=== PATIENT | female | born 1960 | race Caucasian/White ===

== ENCOUNTER 2020-01-26 05:12 | Inpatient (IN) | payer OTHER, SELFPAY ==
[2020-01-26] VITALS (9 sets, daily range): BP systolic 120–140; BP diastolic 41–66; PULSE 72–85; RESP 16–20; TEMP 36.4–37.1; O2SAT 96–100; BMI 39.1
--- NOTE | ~2020-01-26 | XR_ITS ---
EXAMINATION: XR chest 1V portable EXAM DATE: 01/27/2020 06:06 INDICATION: COVID-19 pneumonia. TECHNIQUE: Portable AP frontal chest x-ray was obtained. Comparison is made to prior examination from 05/21/2017. FINDINGS: There is small amount of ill-defined bilateral patchy airspace disease consistent with hist ory provided above. No pneumothorax or pleural effusion. Cardiomediastinal silhouette is normal. Ther e are no osseous abnormalities identified. IMPRESSION: Patchy ill-defined bilateral acute airspace disease. Reviewed, dictated and finalized at location A.
--- NOTE | ~2020-01-26 | CT_ITS ---
EXAMINATION: CT cervical spine wo con DATE: 01/26/2020 13:24 INDICATION: Left hemiparesis. TECHNIQUE: Computed tomography (CT) of the cervical spine was performed without intravenous contrast. Automated exposure control and iterative reconstruction technique were employed. The dose-length pro duct was 495.50 mGy-cm. COMPARISON: None FINDINGS: There is 4 degrees levocurvature of cervical spine. There is mild kyphosis of cervical spin e. Vertebral body heights are normal. There is severely decreased disc height at C5-C6 and C6-C7. The following disc levels are specifically discussed: C2-C3: There is no uncovertebral joint osteoarthritis. There is moderate right and severe left facet joint osteoarthritis. There is no neural foraminal stenosis. There is no central canal stenosis. C3-C4: There is mild bilateral uncovertebral joint osteoarthritis. There is severe bilateral facet sree int osteoarthritis. There is mild right neural foraminal stenosis. There is no central canal stenosis . C4-C5: There is no uncovertebral joint osteoarthritis. There is severe bilateral facet joint osteoart hritis. There is mild bilateral neural foraminal stenosis. There is mild central canal stenosis. C5-C6: There is severe bilateral uncovertebral joint osteoarthritis. There is severe right and mild l eft facet joint osteoarthritis. There is mild bilateral neural foraminal stenosis. There is mild cent ral canal stenosis. C6-C7: There is severe bilateral uncovertebral joint osteoarthritis. There is severe right and modera te left facet joint osteoarthritis. There is moderate right and mild left neural foraminal stenosis. There is mild central canal stenosis. C7-T1: There is no uncovertebral joint osteoarthritis. There is severe bilateral facet joint osteoart hritis. There is mild bilateral neural foraminal stenosis. There is no central canal stenosis. IMPRESSION: 1. No fracture. 2. Severe cervical spondylosis. Reviewed, dictated and finalized at location A.
--- NOTE | ~2020-01-26 | CT_ITS ---
EXAMINATION: CT brain wo con DATE: 01/26/2020 13:24 INDICATION: Left hemiparesis. TECHNIQUE: Computed tomography (CT) of the head was performed without intravenous contrast. The mA wa s adjusted according to patient size. Iterative reconstruction technique was employed. The dose-lengt h product was 605.33 mGy-cm. COMPARISON: None FINDINGS: There is no intracranial hemorrhage, acute infarction, or abnormal intracranial mass lesion . The ventricles are normal in size. The paranasal sinuses are clear. The orbits are normal. The mast oid air cells are normal. IMPRESSION: 1. Normal brain. Reviewed, dictated and finalized at location A. IMPRESSION: 1. Normal brain.
--- NOTE | 2020-01-26 05:36 | ADMGEN ---
This patient, Jessica Zepeda, was admitted to [facility] Surg Room 329-01. Patient/family oriented to hospital policies and general routines including ID bracelet, bed and alarms, visiting hours, pain management, procedures, bathroom and other care routines, personal items, smoking policy, room service/diet, and visiting hours. Valuables list has been completed. Information on how to activate the Rapid Response Team has been discussed. Patient/Family are encouraged to report perceived risks to care and to ask questions if they do not understand what they are told or what they should do.
[2020-01-26 06:31] LABS: Hemoglobin 12.6 g/dL (12.0-15.0); Mean Corpuscular HGB Conc 32.3 g/dl (32-36); Mean Corpuscular Hemoglobin 28.2 pg (26-34); Mean Corpuscular Volume 87.2 fl (80-100); Mean Platelet Volume 10.1 fl (7.4-10.4); Platelet Count Result 180 k/mm3 (150-375); Red Blood Count 4.47 M/mm3 (4.2-5.4); Red Cell Distribution Width 13.4 % (11.5-14.5); White Blood Count 3.7 K/mm3 (4.5-10.0)
[2020-01-26 06:56] LABS: Alanine Aminotransferase 19 U/L (4-35); Albumin Level 3.8 g/dL (3.5-5.1); Alkaline Phosphatase 107 U/L (38-126); Anion Gap 12.7 mmol/L (7-16); Aspartate Amino Transferase 23 U/L (14-36); Bilirubin,Total 0.7 mg/dL (0.2-1.3); Blood Urea Nitrogen 16 mg/dL (7-17); CRP 2.2 mg/dL (<1.0); Calcium 8.5 mg/dL (8.4-10.2); Carbon Dioxide 28 mmol/L (22-30); Chloride 101 mmol/L (98-107); Estimated Glomerular Filt Rate > 60; Glucose 118 mg/dL (65-105); Potassium 3.7 mmol/L (3.4-5.0); Sodium 138 mmol/L (137-145)
[2020-01-26 07:03] LABS: D Dimer 0.27 ug/mL (<0.48)
[2020-01-26 07:07] LABS: Lactate Dehydrogenase 377 U/L (313-618)
--- NOTE | 2020-01-26 11:23 | PM.IMHP ---
H&P: HPI History of Present Illness Chief complaint: COVID positive, Increased O2 requirements Narrative: Jessica Zepeda is a 59 year old female HTN, hx of breast CA and known +COVID here for SOB and hypoxia. Patient developed symptoms on January 17. She called her doctor the following day and was tested for COVID on January 19 that was positive. Over the past week, patient has been having fever up to 101. She has been feeling tight in the chest with cough. Cough is productive yellow sputum. She has been having a headache. She has disgusia and anosmia. Also having headache but no sore throat. She is having diarrhea but no melena or hematochezia. No nausea or vomiting. She had a decreased appetite. No numbness, tingling or weakness in her extremities. She did check a pulse ox which she has at home due to her asthma and it has been running about 87-91% on room air. She has also been diaphoretic at times. She became lightheaded yesterday falling hitting her left forehead. There was no loss of consciousness. She presented to outside hospital for evaluation. At the outside hospital, white count with 4500 but lab work otherwise was unremarkable. Lactic acid was 1.4. Chest x-ray showed ill-defined bibasilar hazy interstitial opacities. Blood pressure was low at 1 point but unclear if this is measurement error since other values were fine. No CT of the brain performed. Pulse ox was normal on 2 L. She was sent to our facility for further management. Patient is feeling better today. Review of Systems Review of Systems: All systems reviewed & are unremarkable except as noted in HPI and below [facility] Past Medical History Medical History (Updated 01/26/20 @ 12:22 by Renzo Ford MD) Anxiety Arthritis Asthma Breast cancer s/p right mastectomy and LN biopsy for a T1N0 invasive mucinous CA; no chemo but did XRT then Arimidex but stopped after a few days due to side effects Depression GERD (gastroesophageal reflux disease) Gilbert disease Hallux rigidus of left foot Hearing loss Hx of acute bronchitis Hx of recurrent pneumonia Mixed hyperlipidemia Peptic ulceration Pseudocholinesterase deficiency surgery for cleaning up rotator cuff - could not move for 3 days with rigidity PTSD (post-traumatic stress disorder) Surgical History Surgical History (Updated 01/26/20 @ 11:34 by Renzo Ford MD) H/O breast biopsy Right 09/13/18; Right 10/08/18; H/O colonoscopy 2011 H/O elbow surgery H/O foot surgery right; bone broken in 4 places H/O hernia repair H/O knee surgery arthroscopic - meniscus repair on right in 2011 H/O thumb surgery arthritis/bone removes right H/O: hysterectomy History of carpal tunnel release bilateral History of Bindu fundoplication History of tonsillectomy S/P breast lumpectomy Right 11/10/18 S/P rotator cuff repair x2 Social History Social History (Updated 01/26/20 @ 12:18 by Renzo Ford MD) Social History: Patient lives home alone. She is single. No children. She is a full code. She nominates her brother Aayush be the individual would make medical decisions for her if she is not able. She quit tobacco in 1998 after smoking 2 packs per week for about 10 years. When she feels well, she has known to drink 2-3 alcoholic drinks per month. no drug use. Smoking packs per day: 0.5 Smoking cigarettes per day: 10.0 Years smoked: 10 Smoking pack-years: 5.00 Smoking status: Former smoker Smoking end date: 07/02/97 Alcohol intake: current Drinks per week: 1 Substance use: never Gender identity (if verbalized by the patient): Female Spiritual care concerns: No Meds Home Medications and Allergies Home Medications Medication Instructions Recorded Confirmed Type atorvastatin 20 mg tablet 20 mg PO HS 07/17/19 01/26/20 History fluticasone propionate 50 2 spray NASAL DAILY PRN 07/17/19 01/26/20 History mcg/actuation nasal spray,suspension kaur
[2020-01-26] MEDS: PANTOPRAZOLE 40 MG TABLET PO (15:11)
[2020-01-26] MEDS: FLUTICASONE PROPIONATE 0.05% NA SPR 16 GM BTL (*BKC) 2 SPRAY NASAL (15:11)
[2020-01-26] MEDS: MONTELUKAST SODIUM 10 MG TABLET PO (15:12)
[2020-01-26] MEDS: ENOXAPARIN 40 MG/0.4 ML SYRINGE SUB-Q (15:12)
--- NOTE | 2020-01-26 16:08 | PC.NURSE ---
pt to ct at 1302 back at 1330 via wheelchair with 02
[2020-01-26] MEDS: ALBUTEROL SULFATE (*SP) AEROSOL 1 PUFF 6 PUFF INHALATION ×2 (17:01→17:09)
[2020-01-26] MEDS: VENLAFAXINE HCL XR 75 MG CAP.ER.24H 225 MG PO (17:45)
[2020-01-26] MEDS: ACETAMINOPHEN 325 MG TABLET 650 MG PO ×2 (17:47→22:01)
[2020-01-26] MEDS: FLUTICASONE/SALMETEROL 45-21 MCG INHALER 1 PUFF 2 PUFF INHALATION (20:20)
[2020-01-26] MEDS: ALBUTEROL SULFATE (*SP) INHALER 6 PUFF INHALATION (20:20)
[2020-01-26] MEDS: traZODone HCL 50 MG TABLET PO (21:57)
[2020-01-27] VITALS (11 sets, daily range): BP systolic 124–142; BP diastolic 58–80; PULSE 62–103; RESP 16–20; TEMP 36.6–37.2; O2SAT 93–99
[2020-01-27] MEDS: ONDANSETRON INJ 4 MG/2 ML VIAL IV PUSH (06:01)
[2020-01-27 06:59] LABS: CRP 2.8 mg/dL (<1.0); Lactate Dehydrogenase 376 U/L (313-618)
[2020-01-27] MEDS: MONTELUKAST SODIUM 10 MG TABLET PO (09:19)
[2020-01-27] MEDS: ENOXAPARIN 40 MG/0.4 ML SYRINGE SUB-Q ×2 (09:19→21:11)
[2020-01-27] MEDS: PANTOPRAZOLE 40 MG TABLET PO (09:19)
[2020-01-27] MEDS: FLUTICASONE/SALMETEROL 45-21 MCG INHALER 1 PUFF 2 PUFF INHALATION ×2 (09:51→19:58)
[2020-01-27] MEDS: ALBUTEROL SULFATE (*SP) INHALER 6 PUFF INHALATION ×4 (09:52→19:58)
[2020-01-27] MEDS: ACETAMINOPHEN 325 MG TABLET 650 MG PO (14:45)
--- NOTE | 2020-01-27 16:43 | PM.IMPN ---
Progress Note: A&P Assessment and Plan (1) COVID-19: Code(s): U07.1 - COVID-19 Status: Acute Assessment and Plan: Patient is on day 8-9 of symptoms. Ferritin, DD and LDH normal; CRP slightly elevated. Continue supplemental oxygen. Continue supportive care. Check chest x-ray infiltrates and no change Wean oxygen as tolerated. Continue albuterol MDI. with hypoxia at home and continued need of supplemental oxygen will start been this severe and dexamethasone (2) Hypoxia: Code(s): R09.02 - Hypoxemia Status: Acute Assessment and Plan: As above. Wean oxygen as tolerated. (3) Fall: Code(s): W19.XXXA - Unspecified fall, initial encounter Status: Acute Assessment and Plan: Patient had a fall without loss of consciousness. She did strike her head. Minor asymmetric weakness noted nurse in left upper extremity. Not on anticoagulation. Will try to obtain a CT of the brain and cervical spine if possible. Continue to monitor clinically. CT brain and c-spine showing no acute changes. (4) Asthma: Code(s): J45.909 - Unspecified asthma, uncomplicated Status: Acute Assessment and Plan: No appreciable wheezes noted. Resume Trelegy. (5) Essential (primary) hypertension: Code(s): I10 - Essential (primary) hypertension Status: Acute Assessment and Plan: Blood pressure low x1 value at the outside hospital but otherwise blood pressures been well controlled. Clonidine is on hold but will restart at 0.1 daily to avoid rebound. Will continue to monitor . Change to regular diet per patient wishes. (6) HX: breast cancer: Code(s): Z85.3 - Personal history of malignant neoplasm of breast Status: Acute Assessment and Plan: Status post lumpectomy with XRT but no chemotherapy. She could not tolerate Arimidex due to side effect of retinal hemorrhage. No history of diabetes. She is on Empagliflozin-metformin for weight loss. (7) Anxiety and depression: Code(s): F41.9 - Anxiety disorder, unspecified; F32.9 - Major depressive disorder, single episode, unspecified Status: Acute Assessment and Plan: Mood is stable. Continue Effexor and trazodone. Alprazolam available as needed for anxiety. Subjective Date/time seen: Date of visit 07/28/20 16:43 Interval history: date of visit 01/26. 59-year-old asthmatic with hypoxia at home and positive COVID testing presented to the emergency room. Admitted for evaluation treatment of the same. Still feels poorly today with some coughing and headache and dysguesia. Exam Narrative: Exam Narrative: AF 98.3 124/78 86 16 95% 2L Gen -Well-nourished, well-developed female in no acute respiratory distress. HEENT - Normocephalic. Atraumatic. no obvious injury to the left forehead. Pupils equal round reactive. Sclera clear and anicteric. Neck - Supple. . No dominant adenopathy,. Chest - Very minor faint inspiratory crackles bibasilar otherwise distant clear breath sounds. Normal respiratory rate CV - RRR S1/S2. no murmurs, gallops or rubs. Abd - Soft. Obese. Nontender. Positive bowel sounds. Ext - No pedal edema. 2+ DP pulses bilaterally. Neuro - Alert and orient x4. no focal deficits Psych - Nml mood and affect Skin - Warm and dry. Objective Data Vital Signs Vital Signs: Vital Signs - 24 hr 01/26/20 18:00 01/26/20 20:00 01/26/20 20:21 Temperature 37.0 C Pulse Rate 80 85 72 Respiratory Rate 16 Blood Pressure 124/41 L Pulse Oximetry 98 96 01/26/20 22:00 01/27/20 00:00 01/27/20 02:00 Temperature 37.1 C 36.7 C Pulse Rate 80 73 74 Respiratory Rate 18 18 Blood Pressure 140/63 132/76 Pulse Oximetry 96 99 01/27/20 04:00 01/27/20 06:00 01/27/20 08:00 Temperature 37.2 C 37.0 C Pulse Rate 70 79 83 Respiratory Rate 18 18 Blood Pressure 142/76 H 137/69 Pulse Oximetry 95 95 01/27/20 09:59 0
[2020-01-27] MEDS: REMDESIVIR 200 MG/NS 250 ML 200 MG/250 ML BAG 250 MG IVPB (17:16)
[2020-01-27] MEDS: cloNIDine HCL 0.1 MG TABLET PO (17:16)
[2020-01-27] MEDS: VENLAFAXINE HCL XR 75 MG CAP.ER.24H 225 MG PO (17:16)
[2020-01-27] MEDS: DEXAMETHASONE 2 MG TABLET 6 MG PO (17:16)
[2020-01-27] MEDS: traMADol HCL 50 MG TABLET PO (17:25)
[2020-01-27] MEDS: traZODone HCL 50 MG TABLET PO (21:11)
[2020-01-28] VITALS (14 sets, daily range): BP systolic 122–169; BP diastolic 67–93; PULSE 65–86; RESP 16–20; TEMP 36.4–36.7; O2SAT 86–98
[2020-01-28] MEDS: traMADol HCL 50 MG TABLET PO (05:03)
[2020-01-28 06:49] LABS: Alanine Aminotransferase 18 U/L (4-35); Albumin Level 3.9 g/dL (3.5-5.1); Alkaline Phosphatase 107 U/L (38-126); Aspartate Amino Transferase 19 U/L (14-36); Bilirubin,Total 0.5 mg/dL (0.2-1.3); Blood Urea Nitrogen 10 mg/dL (7-17); CRP 4.3 mg/dL (<1.0); Calcium 8.7 mg/dL (8.4-10.2); Carbon Dioxide 29 mmol/L (22-30); Chloride 102 mmol/L (98-107); Estimated CRCL calculation 130 ml/min; Estimated Glomerular Filt Rate > 60; Glucose 147 mg/dL (65-105); Lactate Dehydrogenase 369 U/L (313-618); Sodium 139 mmol/L (137-145)
[2020-01-28 07:14] LABS: Vitamin D 25 Hydroxy 44.2 ng/mL
[2020-01-28] MEDS: FLUTICASONE/SALMETEROL 45-21 MCG INHALER 1 PUFF 2 PUFF INHALATION ×2 (08:44→19:43)
[2020-01-28] MEDS: ALBUTEROL SULFATE (*SP) INHALER 6 PUFF INHALATION ×4 (08:44→19:43)
[2020-01-28] MEDS: FLUTICASONE PROPIONATE 0.05% NA SPR 16 GM BTL (*BKC) 2 SPRAY NASAL (09:12)
[2020-01-28] MEDS: MONTELUKAST SODIUM 10 MG TABLET PO (09:12)
[2020-01-28] MEDS: PANTOPRAZOLE 40 MG TABLET PO (09:12)
[2020-01-28] MEDS: DEXAMETHASONE 2 MG TABLET 6 MG PO (09:13)
[2020-01-28] MEDS: ENOXAPARIN 40 MG/0.4 ML SYRINGE SUB-Q ×2 (09:13→20:05)
[2020-01-28] MEDS: cloNIDine HCL 0.2 MG TABLET PO (10:27)
--- NOTE | 2020-01-28 14:08 | PM.IMPN ---
Progress Note: A&P Assessment and Plan (1) COVID-19: Code(s): U07.1 - COVID-19 Status: Acute Assessment and Plan: Patient is on day 9-10 of symptoms. Ferritin, DD and LDH normal; CRP slightly elevated. Continue supplemental oxygen. Continue supportive care. chest x-ray 01/26 infiltrates and no change Wean oxygen as tolerated. Continue albuterol MDI. with hypoxia at home and continued need of supplemental oxygen started remdesivir and dexamethasone D#2 (2) Hypoxia: Code(s): R09.02 - Hypoxemia Status: Acute Assessment and Plan: As above. Wean oxygen as tolerated. (3) Fall: Code(s): W19.XXXA - Unspecified fall, initial encounter Status: Acute Assessment and Plan: Patient had a fall without loss of consciousness. She did strike her head. Minor asymmetric weakness noted nurse in left upper extremity. Not on anticoagulation. . Continue to monitor clinically. CT brain and c-spine showing no acute changes. (4) Asthma: Code(s): J45.909 - Unspecified asthma, uncomplicated Status: Acute Assessment and Plan: No appreciable wheezes noted. Resume Trelegy. (5) Essential (primary) hypertension: Code(s): I10 - Essential (primary) hypertension Status: Acute Assessment and Plan: Blood pressure low x1 value at the outside hospital but otherwise blood pressures been well controlled. Clonidine was on hold but but restarted 01/26 to avoid rebound with bp rising. Will continue to monitor . Changed to regular diet per patient wishes. (6) HX: breast cancer: Code(s): Z85.3 - Personal history of malignant neoplasm of breast Status: Acute Assessment and Plan: Status post lumpectomy with XRT but no chemotherapy. She could not tolerate Arimidex due to side effect of retinal hemorrhage. No history of diabetes. She is on Empagliflozin-metformin for weight loss. FBS 147 with dexamethasone (7) Anxiety and depression: Code(s): F41.9 - Anxiety disorder, unspecified; F32.9 - Major depressive disorder, single episode, unspecified Status: Acute Assessment and Plan: Mood is stable. Continue Effexor and trazodone. Alprazolam available as needed for anxiety. Subjective Date/time seen: 01/28/20 14:08 Interval history: date of visit 01/27. 59-year-old asthmatic with hypoxia at home and positive COVID testing presented to the emergency room. Admitted for evaluation treatment of the same. feels better today with some coughing and headache and dysguesia still present. Exam Narrative: Exam Narrative: AF 98.3 142/74 74 16 93% 3L Gen -Well-nourished, well-developed female in no acute respiratory distress. HEENT - Normocephalic. Atraumatic. no obvious injury to the left forehead. Pupils equal round reactive. Sclera clear and anicteric. Neck - Supple. . No dominant adenopathy,. Chest - Very minor faint inspiratory crackles bibasilar otherwise distant clear breath sounds. Normal respiratory rate CV - RRR S1/S2. no murmurs, gallops or rubs. Abd - Soft. Obese. Nontender. Positive bowel sounds. Ext - No pedal edema. 2+ DP pulses bilaterally. Neuro - Alert and orient x4. no focal deficits Psych - Nml mood and affect Skin - Warm and dry. Objective Data Vital Signs Vital Signs: Vital Signs - 24 hr 01/27/20 16:00 01/27/20 19:58 01/27/20 20:00 Temperature 36.6 C Pulse Rate 62 74 95 Respiratory Rate 18 16 Blood Pressure 126/80 Pulse Oximetry 96 94 01/27/20 22:00 01/28/20 00:00 01/28/20 02:00 Temperature 36.6 C 36.4 C Pulse Rate 84 81 80 Respiratory Rate 20 20 Blood Pressure 141/58 H 151/81 H Pulse Oximetry 93 94 01/28/20 04:00 01/28/20 06:00 01/28/20 08:00 Temperature 36.7 C 36.4 C Pulse Rate 67 79 74 Respiratory Rate 20 16 Blood Pressure 169/93 H 142/75 H Pulse Oximetry 95 92 01/28/20 08:46 01/28/20 09:10 Temperature Pu
[2020-01-28] MEDS: REMDESIVIR 100 MG/NS 250 ML 100 MG/250 ML BAG 250 MG IVPB (17:57)
[2020-01-28] MEDS: VENLAFAXINE HCL XR 75 MG CAP.ER.24H 225 MG PO (17:57)
[2020-01-28] MEDS: SENNA/DOCUSATE SODIUM TABLET 1 TAB PO (20:05)
[2020-01-28] MEDS: traZODone HCL 50 MG TABLET PO (20:05)
[2020-01-28] MEDS: polyethylene glycoL 3350 17 GM POWD.PACK PO (20:05)
[2020-01-29] VITALS (14 sets, daily range): BP systolic 122–145; BP diastolic 54–73; PULSE 59–95; RESP 16–20; TEMP 36.3–37.1; O2SAT 91–100
[2020-01-29 06:58] LABS: Alanine Aminotransferase 17 U/L (4-35); Anion Gap 12.2 mmol/L (7-16); Blood Urea Nitrogen 14 mg/dL (7-17); CRP 2.4 mg/dL (<1.0); Carbon Dioxide 29 mmol/L (22-30); Chloride 103 mmol/L (98-107); Estimated CRCL calculation 130 ml/min; Estimated Glomerular Filt Rate > 60; Glucose 128 mg/dL (65-105); Lactate Dehydrogenase 377 U/L (313-618); Potassium 4.2 mmol/L (3.4-5.0); Sodium 140 mmol/L (137-145)
[2020-01-29 07:00] LABS: D Dimer < 0.22 ug/mL (<0.48)
[2020-01-29] MEDS: DEXAMETHASONE 2 MG TABLET 6 MG PO (08:28)
[2020-01-29] MEDS: PANTOPRAZOLE 40 MG TABLET PO (08:28)
[2020-01-29] MEDS: cloNIDine HCL 0.2 MG TABLET PO (08:28)
[2020-01-29] MEDS: MONTELUKAST SODIUM 10 MG TABLET PO (08:28)
[2020-01-29] MEDS: polyethylene glycoL 3350 17 GM POWD.PACK PO (08:29)
[2020-01-29] MEDS: ENOXAPARIN 40 MG/0.4 ML SYRINGE SUB-Q ×2 (08:29→21:06)
[2020-01-29] MEDS: ALBUTEROL SULFATE (*SP) INHALER 6 PUFF INHALATION ×4 (09:30→22:01)
[2020-01-29] MEDS: FLUTICASONE/SALMETEROL 45-21 MCG INHALER 1 PUFF 2 PUFF INHALATION ×2 (09:30→22:01)
--- NOTE | 2020-01-29 15:57 | PM.IMPN ---
Progress Note: A&P Assessment and Plan (1) COVID-19: Code(s): U07.1 - COVID-19 Status: Acute Assessment and Plan: Patient is on day 10-11 of symptoms. Ferritin, DD and LDH normal; CRP only slightly elevated. Continue supportive care. chest x-ray 01/26 infiltrates and no change. Continue albuterol MDI. with hypoxia at home and continued need of supplemental oxygen started remdesivir and dexamethasone now d# 3 D#2 (2) Hypoxia: Code(s): R09.02 - Hypoxemia Status: Acute Assessment and Plan: As above. Wean oxygen as tolerated. (3) Fall: Code(s): W19.XXXA - Unspecified fall, initial encounter Status: Acute Assessment and Plan: Patient had a fall without loss of consciousness. She did strike her head. Minor asymmetric weakness noted nurse in left upper extremity. Not on anticoagulation. . Continue to monitor clinically. CT brain and c-spine showing no acute changes. (4) Asthma: Code(s): J45.909 - Unspecified asthma, uncomplicated Status: Acute Assessment and Plan: No appreciable wheezes noted. Resumed Trelegy. (5) Essential (primary) hypertension: Code(s): I10 - Essential (primary) hypertension Status: Acute Assessment and Plan: Blood pressure low x1 value at the outside hospital but otherwise blood pressures been well controlled. Clonidine was on hold but but restarted 01/26 to avoid rebound with bp rising. Will continue to monitor . Changed to regular diet per patient wishes. (6) HX: breast cancer: Code(s): Z85.3 - Personal history of malignant neoplasm of breast Status: Acute Assessment and Plan: Status post lumpectomy with XRT but no chemotherapy. She could not tolerate Arimidex due to side effect of retinal hemorrhage. No history of diabetes. She is on Empagliflozin-metformin for weight loss. FBS 147 with dexamethasone (7) Anxiety and depression: Code(s): F41.9 - Anxiety disorder, unspecified; F32.9 - Major depressive disorder, single episode, unspecified Status: Acute Assessment and Plan: Mood is stable. Continue Effexor and trazodone. Alprazolam available as needed for anxiety. (8) DVT prophylaxis: Code(s): Z29.9 - Encounter for prophylactic measures, unspecified Status: Acute Assessment and Plan: Lovenox q.12 hours with COVID Subjective Date/time seen: 01/29/20 15:57 Interval history: date of visit 01/28. 59-year-old asthmatic with hypoxia at home and positive COVID testing presented to the emergency room. Admitted for evaluation treatment of the same. feels better each day with some coughing and headache and dysguesia still present but lessening Exam Narrative: Exam Narrative: AF 98.3 132/64 84 16 96% RA Gen -Well-nourished, well-developed female in no acute respiratory distress. HEENT - Pupils equal round reactive. Sclera clear and anicteric. Neck - Supple. . No dominant adenopathy,. Chest - distant clear breath sounds. Normal respiratory rate CV - RRR S1/S2. no murmurs, gallops or rubs. Abd - Soft. Obese. Nontender. Positive bowel sounds. Ext - No pedal edema. 2+ DP pulses bilaterally. Neuro - Alert and orient x4. no focal deficits Psych - Nml mood and affect Skin - Warm and dry. Objective Data Vital Signs Vital Signs: Vital Signs - 24 hr 01/28/20 16:00 01/28/20 18:00 01/28/20 19:47 Temperature 36.6 C Pulse Rate 85 76 Respiratory Rate 18 Blood Pressure 135/78 Pulse Oximetry 98 95 01/28/20 20:00 01/28/20 22:22 01/29/20 00:00 Temperature 36.4 C Pulse Rate 86 74 68 Respiratory Rate 20 Blood Pressure 122/67 Pulse Oximetry 95 01/29/20 02:00 01/29/20 04:00 01/29/20 06:00 Temperature 36.3 C L 36.4 C Pulse Rate 59 L 73 64 Respiratory Rate 20 16 Blood Pressure 122/54 L 145/73 H Pulse Oximetry 99 98 01/29/20 08:00 01/29/20 09:30 01/29/20
[2020-01-29] MEDS: REMDESIVIR 100 MG/NS 250 ML 100 MG/250 ML BAG 250 MG IVPB (18:45)
[2020-01-29] MEDS: polyethylene glycoL 3350 17 GM POWD.PACK 34 GM PO (18:46)
[2020-01-29] MEDS: VENLAFAXINE HCL XR 75 MG CAP.ER.24H 225 MG PO (18:47)
[2020-01-29] MEDS: BISACODYL 5 MG TABLET EC 10 MG PO (18:58)
[2020-01-29] MEDS: traZODone HCL 50 MG TABLET PO (21:06)
[2020-01-29] MEDS: SENNA/DOCUSATE SODIUM TABLET 1 TAB PO (21:06)
[2020-01-30] VITALS (14 sets, daily range): BP systolic 113–134; BP diastolic 46–65; PULSE 57–73; RESP 18–20; TEMP 36.3–36.7; O2SAT 93–97
[2020-01-30] MEDS: ALPRAZolam 0.25 MG TABLET PO (01:35)
[2020-01-30] MEDS: traMADol HCL 50 MG TABLET PO (01:35)
[2020-01-30 06:29] LABS: Alanine Aminotransferase 18 U/L (4-35)
[2020-01-30] MEDS: PANTOPRAZOLE 40 MG TABLET PO (08:19)
[2020-01-30] MEDS: ENOXAPARIN 40 MG/0.4 ML SYRINGE SUB-Q ×2 (08:19→20:59)
[2020-01-30] MEDS: DEXAMETHASONE 2 MG TABLET 6 MG PO (08:19)
[2020-01-30] MEDS: cloNIDine HCL 0.2 MG TABLET PO (08:19)
[2020-01-30] MEDS: MONTELUKAST SODIUM 10 MG TABLET PO (08:19)
[2020-01-30] MEDS: ALBUTEROL SULFATE (*SP) INHALER 6 PUFF INHALATION ×4 (08:35→19:57)
[2020-01-30] MEDS: FLUTICASONE/SALMETEROL 45-21 MCG INHALER 1 PUFF 2 PUFF INHALATION ×2 (08:35→19:57)
--- NOTE | 2020-01-30 16:33 | PM.IMPN ---
Progress Note: A&P Assessment and Plan (1) COVID-19: Code(s): U07.1 - COVID-19 Status: Acute Assessment and Plan: Patient prented on about day 8 of symptoms. . Ferritin, DD and LDH normal; CRP only slightly elevated. . chest x-ray 01/26 infiltrates and no change. Continue albuterol MDI. with hypoxia at home and continued need of supplemental oxygen started remdesivir and dexamethasone on day 9 of symptoms. now d# 4 of rx (2) Hypoxia: Code(s): R09.02 - Hypoxemia Status: Acute Assessment and Plan: As above. now saturating well on RA. (3) Fall: Code(s): W19.XXXA - Unspecified fall, initial encounter Status: Acute Assessment and Plan: Patient had a fall without loss of consciousness. She did strike her head. Minor asymmetric weakness noted nurse in left upper extremity. Not on anticoagulation. . Continue to monitor clinically. CT brain and c-spine showing no acute changes. (4) Asthma: Code(s): J45.909 - Unspecified asthma, uncomplicated Status: Acute Assessment and Plan: No appreciable wheezes noted. Resumed Trelegy. and receiving steroids too (5) Essential (primary) hypertension: Code(s): I10 - Essential (primary) hypertension Status: Acute Assessment and Plan: Blood pressure low x1 value at the outside hospital but otherwise blood pressures been well controlled. Clonidine was on hold but but restarted 01/26 to avoid rebound with bp rising. Will continue to monitor . . (6) HX: breast cancer: Code(s): Z85.3 - Personal history of malignant neoplasm of breast Status: Acute Assessment and Plan: Status post lumpectomy with XRT but no chemotherapy. She could not tolerate Arimidex due to side effect of retinal hemorrhage. No history of diabetes. She is on Empagliflozin-metformin for weight loss. (7) Anxiety and depression: Code(s): F41.9 - Anxiety disorder, unspecified; F32.9 - Major depressive disorder, single episode, unspecified Status: Acute Assessment and Plan: Mood is stable. Continue Effexor and trazodone. Alprazolam available as needed for anxiety. (8) DVT prophylaxis: Code(s): Z29.9 - Encounter for prophylactic measures, unspecified Status: Acute Assessment and Plan: Lovenox q.12 hours with COVID Subjective Date/time seen: 01/30/20 16:33 Interval history: date of visit 01/29. 59-year-old asthmatic with hypoxia at home and positive COVID testing presented to the emergency room. Admitted for evaluation treatment of the same. feels better each day with some coughing and headache and dysguesia still present but lessening and had BM Exam Narrative: Exam Narrative: AF 98.3 114/56 72 16 96% RA Gen -Well-nourished, well-developed female in no acute respiratory distress. HEENT - Pupils equal round reactive. Sclera clear and anicteric. Neck - Supple. . No dominant adenopathy,. Chest - distant clear breath sounds. Normal respiratory rate CV - RRR S1/S2. no murmurs, gallops or rubs. Abd - Soft. Obese. Nontender. Positive bowel sounds. Ext - No pedal edema. 2+ DP pulses bilaterally. Neuro - Alert and orient x4. no focal deficits Psych - Nml mood and affect Skin - Warm and dry. Objective Data Vital Signs Vital Signs: Vital Signs - 24 hr 01/29/20 18:00 01/29/20 20:00 01/29/20 22:00 Temperature 36.9 C 36.7 C Pulse Rate 72 70 66 Respiratory Rate 20 20 Blood Pressure 133/59 L 127/73 Pulse Oximetry 91 96 01/30/20 00:00 01/30/20 02:00 01/30/20 04:00 Temperature 36.6 C Pulse Rate 65 60 60 Respiratory Rate 20 Blood Pressure 134/65 Pulse Oximetry 96 01/30/20 06:00 01/30/20 08:00 01/30/20 08:38 Temperature 36.6 C Pulse Rate 57 L 58 L Respiratory Rate 20 Blood Pressure 133/56 L Pulse Oximetry 97 93 94 01/30/20 10:00 01/30/20 12:00 01/30/20 13:59 [place]
[2020-01-30] MEDS: REMDESIVIR 100 MG/NS 250 ML 100 MG/250 ML BAG 250 MG IVPB (17:04)
[2020-01-30] MEDS: VENLAFAXINE HCL XR 75 MG CAP.ER.24H 225 MG PO (17:04)
[2020-01-30] MEDS: traZODone HCL 50 MG TABLET PO (20:59)
[2020-01-30] MEDS: SENNA/DOCUSATE SODIUM TABLET 1 TAB PO (21:00)
[2020-01-31] VITALS (10 sets, daily range): BP systolic 139–143; BP diastolic 70–71; PULSE 62–90; RESP 18; TEMP 36.6–36.7; O2SAT 93–100
[2020-01-31] MEDS: traMADol HCL 50 MG TABLET PO (02:27)
[2020-01-31 07:03] LABS: Alanine Aminotransferase 21 U/L (4-35)
[2020-01-31] MEDS: DEXAMETHASONE 2 MG TABLET 6 MG PO (07:57)
[2020-01-31] MEDS: MONTELUKAST SODIUM 10 MG TABLET PO (07:57)
[2020-01-31] MEDS: PANTOPRAZOLE 40 MG TABLET PO (07:57)
[2020-01-31] MEDS: cloNIDine HCL 0.2 MG TABLET PO (07:57)
[2020-01-31] MEDS: ENOXAPARIN 40 MG/0.4 ML SYRINGE SUB-Q (07:57)
[2020-01-31] MEDS: FLUTICASONE/SALMETEROL 45-21 MCG INHALER 1 PUFF 2 PUFF INHALATION (08:20)
[2020-01-31] MEDS: ALBUTEROL SULFATE (*SP) INHALER 6 PUFF INHALATION ×3 (08:20→15:00)
[2020-01-31] MEDS: REMDESIVIR 100 MG/NS 250 ML 100 MG/250 ML BAG 250 MG IVPB (10:42)
--- NOTE | 2020-01-31 13:03 | PC.NURSE ---
Pt has discharge orders. Pt has had IV removed, and discharge paperwork reviewed. Opportunity for questions provided, and pt exhibited a good understanding of discharge instructions. Pt will be assisted to the front of the building by staff.
--- NOTE | 2020-01-31 17:56 | PM.DS ---
DS: Admitting Diagnosis Admitting Diagnosis Admitting Diagnosis: COVID-19 DS: Discharge Diagnosis Discharge Diagnosis (1) COVID-19: Code(s): U07.1 - COVID-19 Status: Acute Assessment and Plan: Patient prented on about day 8 of symptoms. . Ferritin, DD and LDH normal; CRP only slightly elevated. . chest x-ray 01/26 infiltrates and no change. Continue albuterol MDI. with hypoxia at home and continued need of supplemental oxygen here started remdesivir and dexamethasone on day 9 of symptoms. finished 5 day course of remdesivir here and will complete 10 day course of dexamethasone 6 mg daily at home. Inflammatory markers had returned to normal head she was saturating 94% on room air. She was more than 14 days post symptomatology in should no longer be contagious. She will see her primary care and she states that she has to have repeat COVID testing before she can return to work (2) Hypoxia: Code(s): R09.02 - Hypoxemia Status: Acute Assessment and Plan: supplemental oxygen needed here and 1 recorded saturation of 86%. The she had did meet the criteria for respiratory failure. By time of discharge she was saturating 94% on room air though (3) Fall: Code(s): W19.XXXA - Unspecified fall, initial encounter Status: Acute Assessment and Plan: Patient had a fall without loss of consciousness. She did strike her head. Minor asymmetric weakness noted nurse in left upper extremity. Not on anticoagulation. . Continue to monitor clinically. CT brain and c-spine showing no acute changes. (4) Asthma: Code(s): J45.909 - Unspecified asthma, uncomplicated Status: Acute Assessment and Plan: No appreciable wheezes noted. Resumed Trelegy. and receiving steroids too (5) Essential (primary) hypertension: Code(s): I10 - Essential (primary) hypertension Status: Acute Assessment and Plan: Blood pressure low x1 value at the outside hospital but otherwise blood pressures been well controlled. Clonidine was on hold but but restarted 01/26 to avoid rebound with bp rising. Will continue to monitor . . (6) HX: breast cancer: Code(s): Z85.3 - Personal history of malignant neoplasm of breast Status: Acute Assessment and Plan: Status post lumpectomy with XRT but no chemotherapy. She could not tolerate Arimidex due to side effect of retinal hemorrhage. No history of diabetes. She is on Empagliflozin-metformin for weight loss. (7) Anxiety and depression: Code(s): F41.9 - Anxiety disorder, unspecified; F32.9 - Major depressive disorder, single episode, unspecified Status: Acute Assessment and Plan: Mood is stable. Continue Effexor and trazodone. Alprazolam available as needed for anxiety. DS: Summary Hospital Course Hospital Course: 59-year-old hypertensive female with asthma presented with increasing weakness and shortness of breath malaise with diagnosis of COVID. She was 8-9 days into her symptomatology and still requiring O2 supplements thus remdesivir and Decadron were started. Finished her course of antiviral here and will receive 5 more days of Decadron 6 mg daily as an outpatient. by the time of discharge she is feeling much better and O2 sats were 94% on room air she will follow-up with her primary care creatinine stated she will need repeat COVID testing before returning to work Time Spent with Patient Time attestation: Total time spent providing and/or coordinating discharge services: 35 minutes Exam Narrative: Exam Narrative: condition on discharge blood pressure 140/70 pulse is 76 saturating 94% on room air afebrile lungs clear CV regular rate rhythm abdomen is soft nontender no masses extremities without edema distal pulses are 2+ neuro alert pleasant cooperative no focal deficits DS: Data Data Completed and Pending Labs on day of discharge:
== END 2020-01-31 15:05 | disposition home or self-care (01) | DRG 179 ==
PROVIDERS: Internal Medicine; Admitting Provider Internal Medicine; PCP Family Medicine; Visit Provider Internal Medicine
DX: U07.1 COVID-19 (principal); R09.02 Hypoxemia; W19.XXXA Unspecified fall, initial encounter; J45.909 Unspecified asthma, uncomplicated; F41.8 Other specified anxiety disorders; I10 Essential (primary) hypertension; M19.90 Unspecified osteoarthritis, unspecified site; K21.9 Gastro-esophageal reflux disease without esophagitis; E80.4 Gilbert syndrome; H91.90 Unspecified hearing loss, unspecified ear; E78.2 Mixed hyperlipidemia; F43.10 Post-traumatic stress disorder, unspecified; Z85.3 Personal history of malignant neoplasm of breast; Z87.11 Personal history of peptic ulcer disease; Z90.710 Acquired absence of both cervix and uterus; Z87.891 Personal history of nicotine dependence; E66.9 Obesity, unspecified; Z68.39 Body mass index [BMI] 39.0-39.9, adult
CPT/HCPCS: 36415; 70450; 71045; 72125; 80048; 80053; 82306; 82728; 83615; 84460; 85027; 85380; 86140; 94640; 97165; A9270; J1650; J2405; J8540

== ENCOUNTER 2020-02-17 13:37 | Outpatient (CLI) | payer OTHER, SELFPAY ==
--- NOTE | ~2020-02-17 | XR_ITS ---
EXAMINATION: XR chest 2V EXAM DATE: 02/17/2020 14:04 INDICATION: Shortness of breath, recovered from COVID one week ago. TECHNIQUE: Frontal and lateral projections of the chest obtained and reviewed. Comparison is made to prior examination from 01/27/2020. FINDINGS: The lungs are clear. There are no pleural effusions. The cardiomediastinal silhouette is within normal limits. There is no pneumothorax suspected. The bones and soft tissues are unremarkab le. IMPRESSION: Resolution of previously seen airspace disease. Reviewed, dictated and finalized at location B.
[2020-02-17 14:25] LABS: Alanine Aminotransferase 23 U/L (4-35); Albumin Level 4.4 g/dL (3.5-5.1); Alkaline Phosphatase 135 U/L (38-126); Anion Gap 7 mmol/L (8-16); Aspartate Amino Transferase 22 U/L (14-36); Bilirubin,Total 0.8 mg/dL (0.2-1.3); Blood Urea Nitrogen 12 mg/dL (7-17); Calcium 9.4 mg/dL (8.4-10.2); Carbon Dioxide 28 mmol/L (22-30); Chloride 105 mmol/L (98-107); Estimated Glomerular Filt Rate > 60; Glucose 84 mg/dL (65-105); Potassium 3.9 mmol/L (3.4-5.0); Sodium 140 mmol/L (137-145)
== END 2020-02-17 13:38 | disposition home or self-care (01) ==
LOC: ANHIMG 13:42
PROVIDERS: PCP Family Medicine; Visit Provider Family Medicine
DX: R06.02 Shortness of breath (principal); Z86.19 Personal history of other infectious and parasitic diseases; R53.83 Other fatigue
CPT/HCPCS: 36415; 71046; 80053; 84443

== ENCOUNTER 2020-03-31 18:04 | Outpatient (CLI) | payer OTHER, SELFPAY ==
--- NOTE | ~2020-03-31 | XR_ITS ---
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 No fracture. Postoperative change of prior first carpometacarpal suspension arthroplasty with resection of the trapezium. Visualized j oint spaces are otherwise unremarkable. Diffuse osteopenia. Soft tissue swelling about the fourth pro ximal interphalangeal joint. IMPRESSION: 1. 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 No acute osseous abnormality. Reviewed, dictated and finalized at location A. IMPRESSION: 1. 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 No acute osseous ab normality.
== END 2020-03-31 18:05 | disposition home or self-care (01) ==
PROVIDERS: PCP Family Medicine; Visit Provider Family Medicine
DX: M79.646 Pain in unspecified finger(s) (principal); M20.021 Boutonniere deformity of right finger(s)
CPT/HCPCS: 73140

== ENCOUNTER → 2020-05-05 07:47 | Outpatient (CLI) | payer OTHER, SELFPAY ==
--- NOTE | ~2020-05-05 | MR_ITS ---
EXAMINATION: MR foot LT wo con DATE: 05/05/2020 08:35 INDICATION: Hallux rigidus with chronic left great toe pain TECHNIQUE: Magnetic resonance imaging (MRI) of the left fore/mid foot was performed without intraveno us contrast. Sequences included sagittal T1-weighted FSE, sagittal fluid sensitive FSE STIR, coronal PD-weighted FS FSE, coronal T1-weighted FSE, axial PD-weighted FS FSE, and axial PD-weighted FSE. COMPARISON: Left foot radiographs dated 04/27/2020 FINDINGS: Alignment is normal. No fracture. Polyarticular osteoarthritis, moderate severity with subarticular e daryn at the second and third tarsal metatarsal joints, mild to moderate, also with subarticular edema at the first metatarsophalangeal joint and fourth tarsal metatarsal joint and mild at the remaining tarsal metatarsal and multiple interphalangeal joints. Small T2 hyperintense lesion at the medial non articular side of the head of the first metatarsal which could represent either a degenerative cyst o r erosion. Appearance on the axial nonfat saturated image suggest erosion with overhanging edges. Chinedu ewhat lobular appearing T2 hyperintense lesion in the proximal metadiaphyseal region of the fourth me tatarsal without evident lytic lesion on plain radiographs with appearance suggesting intraosseous ga nglion cyst or dilated vascular channel. Nonspecific mild edema in the proximal metaphyseal regions o f the third and to a lesser degree fifth metatarsals. Flexor and extensor tendons are normal. The Lis franc ligament complex as well as the collateral ligament complexes at the metatarsophalangeal and in terphalangeal joints are normal. Intrinsic musculature of the foot is unremarkable. IMPRESSION: 1. Mild to moderate polyarticular osteoarthritis most prominent at the fused the tarsometatarsal and first metatarsophalangeal joints. 2. Small T2 hyperintense lesion at the medial head of the first metatarsal which could represent dege nerative cystic change such as in the setting of a bunion or an erosion with typical location and hsira earance for gout. 3. Nonspecific mild edema at the metatarsal regions of the third and fifth metatarsals which could be related to osteoarthritis at the intermetatarsal articulations or low-grade stress reaction. Reviewed, dictated and finalized at location A. DBOAT DRIVER IMPRESSION: 1. Mild to moderate polyarticular osteoarthritis most prominent at the fused th e tarsometatarsal and first metatarsophalangeal joints. 2. Small T2 hyperintense lesion at the medial head of the first metatarsal whic h could represent degenerative cystic change such as in the setting of a bunion or an erosion with typical location and appearance for gout. 3. Nonspecific mild edema at the metatarsal regions of the third and fifth meta tarsals which could be related to osteoarthritis at the intermetatarsal articul ations or low-grade stress reaction.
== END ==
PROVIDERS: PCP Family Medicine; Visit Provider Orthopaedic Surgery
DX: M20.22 Hallux rigidus, left foot (principal); M19.072 Primary osteoarthritis, left ankle and foot
CPT/HCPCS: 73718

== ENCOUNTER 2020-06-05 10:22 | Outpatient (CLI) | payer OTHER, SELFPAY ==
--- NOTE | 2020-06-05 10:31 | ECG_ITS ---
Measurements Intervals [place] Rate: 88 P: 45 VT: 133 QRS: 4 QRSD: 87 T: 26 QT: 366 QTc: 445 Interpretive Statements SINUS RHYTHM INCOMPLETE RIGHT BUNDLE BRANCH BLOCK BASELINE ARTIFACT- I, II, III ABNORMAL ECG Electronically Signed On 06-05-2020 10:43:57 [facility] by Gregor Grover D.O.
== END 2020-06-05 10:23 | disposition home or self-care (01) ==
LOC: ANHLAB 10:25
PROVIDERS: PCP Family Medicine; Visit Provider Anesthesiology
DX: E78.2 Mixed hyperlipidemia (principal); Z01.818 Encounter for other preprocedural examination; I45.10 Unspecified right bundle-branch block
CPT/HCPCS: 93005

== ENCOUNTER 2020-06-07 01:39 | Outpatient (CLI) | payer OTHER, SELFPAY ==
[2020-06-07 18:53] LABS: SARS-CoV-2 RNA PCR Negative
== END 2020-06-07 01:40 | disposition home or self-care (01) ==
LOC: ANHCOVIDDT 01:39
PROVIDERS: PCP Family Medicine; Visit Provider Orthopaedic Surgery
DX: Z01.818 Encounter for other preprocedural examination (principal); Z20.828 Contact with and (suspected) exposure to other viral communicable diseases
CPT/HCPCS: 87635; C9803; U0003

== ENCOUNTER 2020-06-10 01:01 | Day surgery (SDC) | payer OTHER, SELFPAY ==
[2020-06-04 14:42] VITALS: BMI 38.7
[2020-06-10] VITALS (8 sets, daily range): BP systolic 110–129; BP diastolic 48–88; PULSE 78–97; RESP 16–20; TEMP 36.2–36.3; O2SAT 91–100
--- NOTE | ~2020-06-10 | XR_ITS ---
EXAMINATION: XR surgery orthopedic DATE: 06/10/2020 11:01 INDICATION: Left foot hallux rigidus. Left foot sesamoiditis. TECHNIQUE: 2 intraoperative fluoroscopic views of left foot were obtained. I was not present. Fluoros copy exposure time was 3 seconds. COMPARISON: None. FINDINGS: Bone alignment is normal. No fracture. There are changes of resection of portions of the he ad of first metatarsal. IMPRESSION: 1. Surgical changes of first metatarsal. Reviewed, dictated and finalized at location B. ROOM HAND
--- NOTE | 2020-06-10 06:46 | WPDHPUPDATE1 ---
History and Physical Update Update Date/Time: 06/10/20 06:46 History and Physical has been reviewed, including an updated exam of the patient. There are NO changes in the patient's condition. Covid test negative. Risks, benefits, and alternatives have been discussed and questions answered. Patient agrees to proceed with procedure.
--- NOTE | 2020-06-10 08:10 | WPDANESEPP ---
Anes - Eval Pre Procedure Procedure: Operation Date: 06/10/20 09:00 Proposed Procedures p Left Foot Cheilectomy, Sesamoidectomy - Manoj Fernando MD Date/Time: 06/10/20 08:10 Pre Op Diagnosis: Left Foot Hallux Rigidus,Left Sesamoiditis Patient Data Age: 60 Gender: F Height: 1.68 m Weight: 108.98 kg Allergies Allergy/AdvReac Type Severity Reaction Status Date / Time succinylcholine Allergy Severe SEVERE Verified 06/04/20 14:05 MUSCLE SORENESS adhesive tape Allergy Mild ITCHY/REDNE Verified 06/04/20 14:05 SS erythromycin base Allergy Unknown -hives Verified 06/04/20 14:05 vortioxetine Allergy Unknown Nausea And Verified 06/04/20 14:05 Vomiting Home Medications Medication Instructions Recorded Confirmed Type fluticasone propionate 50 2 spray NASAL DAILY PRN 07/17/19 06/09/20 History mcg/actuation nasal spray,suspension omeprazole 40 mg capsule,delayed 40 mg PO DAILY #90 cap 08/12/19 06/09/20 Rx release peak flow meter #1 each 01/19/20 06/09/20 Rx Synjardy 1 tablet PO DAILY 01/26/20 06/09/20 History alprazolam [Xanax] 0.25 mg PO TID PRN 01/26/20 06/09/20 History atorvastatin 20 mg tablet 20 mg PO HS #90 tablet 04/02/20 06/09/20 Rx ascorbate calcium (vitamin C) 500 500 mg PO DAILY 05/21/20 06/09/20 History mg tablet biotin 2,500 mcg capsule 2,500 mcg PO DAILY 05/21/20 06/09/20 History albuterol sulfate 2.5 mg INHALATION PRN PRN 06/04/20 06/09/20 History albuterol sulfate [Ventolin HFA] 2 puff INHALATION PRN PRN 06/04/20 06/09/20 History clonidine HCl 0.2 mg PO HS 06/04/20 06/09/20 History ketoconazole 1 applic TOPICAL PRN PRN 06/04/20 06/09/20 History montelukast [Singulair] 10 mg PO HS 06/04/20 06/09/20 History trazodone 50 mg PO HS 06/04/20 06/09/20 History venlafaxine 150 mg PO HS 06/04/20 06/09/20 History fluticasone fur. 100 mcg-umeclid See Rx Instructions .ROUTE 06/09/20 06/09/20 Rx 62.5 mcg-vilant 25 mcg .COMPLEX #84 ea inhalat.powder Patient hx anesthesia problems: none Family hx anesthesia problems: none PMFSH Past Medical History Medical History Anxiety Arthritis Asthma Breast cancer s/p right mastectomy and LN biopsy for a T1N0 invasive mucinous CA; no chemo but did XRT then Arimidex but stopped after a few days due to side effects Depression GERD (gastroesophageal reflux disease) Gilbert disease Hallux rigidus of left foot Hearing loss Hx of acute bronchitis Hx of recurrent pneumonia Mixed hyperlipidemia Peptic ulceration Pseudocholinesterase deficiency surgery for cleaning up rotator cuff - could not move for 3 days with rigidity PTSD (post-traumatic stress disorder) Sesamoiditis Surgical History Surgical History H/O breast biopsy Right 09/13/18; Right 10/08/18; H/O colonoscopy 2011 H/O elbow surgery H/O foot surgery right; bone broken in 4 places H/O hernia repair H/O knee surgery arthroscopic - meniscus repair on right in 2011 H/O thumb surgery arthritis/bone removes right H/O: hysterectomy History of carpal tunnel release bilateral History of Bindu fundoplication History of tonsillectomy S/P breast lumpectomy Right 11/10/18 S/P rotator cuff repair x2 Family History Family History Mother Depression Asthma Diabetes mellitus Family history of malignant neoplasm of breast Grandparent Family history of glaucoma Hypertension Cerebrovascular accident Family history of Alzheimer's disease Family history of pancreatic cancer Father Family history of osteoporosis Family history of atrial fibrillation Other Family history of arthritis Family history of malignant neoplasm Family history of malignant neoplasm of stomach Social History Social History Social History: Patient lives home alone. Sh
[2020-06-10] MEDS: ACETAMINOPHEN 500 MG TABLET 1000 MG PO (08:44)
[2020-06-10] MEDS: KETOROLAC 15 MG/ML VIAL (*BKC) IV PUSH (08:46)
[2020-06-10] MEDS: LACTATED RINGERS 1,000 ML 30 ML IV CONT (08:53)
--- NOTE | 2020-06-10 09:35 | WPDANESEPPF ---
Anes - Initial Pre Proc Eval Procedure: Operation Date: 06/10/20 09:00 Proposed Procedures p Left Foot Cheilectomy, Sesamoidectomy - Manoj Fernando MD Date/Time: 06/10/20 09:35 Surgeon: Manoj Fernando MD Pre Op Diagnosis: Left Foot Hallux Rigidus,Left Sesamoiditis Patient Data Age: 60 Gender: F Height: 5 ft 6 in Weight: 110.7 kg Last Vital Signs Temp 97.2 F L 06/10/20 07:00 Pulse 87 06/10/20 07:00 Resp 20 06/10/20 07:00 BP 129/48 L 06/10/20 07:00 Pulse Ox 100 06/10/20 07:00 Allergies Allergy/AdvReac Type Severity Reaction Status Date / Time succinylcholine Allergy Severe SEVERE Verified 06/10/20 09:21 MUSCLE SORENESS adhesive tape Allergy Mild ITCHY/REDNE Verified 06/10/20 09:21 SS erythromycin base Allergy Unknown -hives Verified 06/10/20 09:21 vortioxetine Allergy Unknown Nausea And Verified 06/10/20 09:21 Vomiting Home Medications Medication Instructions Recorded Confirmed Type fluticasone propionate 50 2 spray NASAL DAILY PRN 07/17/19 06/09/20 History mcg/actuation nasal spray,suspension omeprazole 40 mg capsule,delayed 40 mg PO DAILY #90 cap 08/12/19 06/10/20 Rx release peak flow meter #1 each 01/19/20 06/09/20 Rx Synjardy 1 tablet PO DAILY 01/26/20 06/10/20 History alprazolam [Xanax] 0.25 mg PO TID PRN 01/26/20 06/09/20 History atorvastatin 20 mg tablet 20 mg PO HS #90 tablet 04/02/20 06/10/20 Rx ascorbate calcium (vitamin C) 500 500 mg PO DAILY 05/21/20 06/10/20 History mg tablet biotin 2,500 mcg capsule 2,500 mcg PO DAILY 05/21/20 06/10/20 History albuterol sulfate 2.5 mg INHALATION PRN PRN 06/04/20 06/09/20 History albuterol sulfate [Ventolin HFA] 2 puff INHALATION PRN PRN 06/04/20 06/09/20 History clonidine HCl 0.2 mg PO HS 06/04/20 06/10/20 History ketoconazole 1 applic TOPICAL PRN PRN 06/04/20 06/09/20 History montelukast [Singulair] 10 mg PO HS 06/04/20 06/10/20 History trazodone 50 mg PO HS 06/04/20 06/10/20 History venlafaxine 150 mg PO HS 06/04/20 06/10/20 History fluticasone fur. 100 mcg-umeclid See Rx Instructions .ROUTE 06/09/20 06/09/20 Rx 62.5 mcg-vilant 25 mcg .COMPLEX #84 ea inhalat.powder Patient hx anesthesia problems: none Family hx anesthesia problems: none PMFSH Past Medical History Medical History Anxiety Arthritis Asthma Breast cancer s/p right mastectomy and LN biopsy for a T1N0 invasive mucinous CA; no chemo but did XRT then Arimidex but stopped after a few days due to side effects Depression GERD (gastroesophageal reflux disease) Gilbert disease Hallux rigidus of left foot Hearing loss Hx of acute bronchitis Hx of recurrent pneumonia Mixed hyperlipidemia Peptic ulceration Pseudocholinesterase deficiency surgery for cleaning up rotator cuff - could not move for 3 days with rigidity PTSD (post-traumatic stress disorder) Sesamoiditis Surgical History Surgical History H/O breast biopsy Right 09/13/18; Right 10/08/18; H/O colonoscopy 2011 H/O elbow surgery H/O foot surgery right; bone broken in 4 places H/O hernia repair H/O knee surgery arthroscopic - meniscus repair on right in 2011 H/O thumb surgery arthritis/bone removes right H/O: hysterectomy History of carpal tunnel release bilateral History of Bindu fundoplication History of tonsillectomy S/P breast lumpectomy Right 11/10/18 S/P rotator cuff repair x2 Family History Family History Mother Depression Asthma Diabetes mellitus Family history of malignant neoplasm of breast Grandparent Family history of glaucoma Hypertension Cerebrovascular accident Family history of Alzheimer's disease Family history of pancreatic cancer Father Family history of osteoporosis Family history of atrial fibrillation Other Family history of arthritis Family history
[2020-06-10] MEDS: ceFAZolin 2 GM/D5W 50 ML 2 GM/50 ML BAG IVPB (10:19)
[2020-06-10] MEDS: BUPIVACAINE HCL 0.5% PF 30 ML VIAL INFILTRATE (10:47)
[2020-06-10] MEDS: SCOPOLAMINE 1.5 MG PATCH TRANSDERM (11:14)
--- NOTE | 2020-06-10 11:39 | PM.PROC ---
Procedure Note - Detailed Date of procedure: 06/10/20 Pre-op diagnosis: Left Foot Hallux Rigidus,Left Sesamoiditis Post-op diagnosis: same Procedure performed: Left hallux cheilectomy Description of procedure: Indications: Patient is a 60-year-old woman with left hallux metatarsophalangeal joint pain. MRI shows degenerative changes of the joint. She presents now for operative treatment having failed conservative treatment consisting of injections, inserts, shoe accommodation and activity modification. What was done: Patient identified in the preoperative holding. Informed consent given. Operative extremity marked. Patient received intravenous antibiotics. Patient brought to the operating room where underwent general anesthetic by anesthesia team. Positioned supine on operating room table. Time-out performed confirming the patient, site of the surgery and the plan. Left foot prepped draped usual sterile surgical fashion using ChloraPrep skin solution. Foot and ankle exsanguinated and calf tourniquet inflated to 250 mmHg. Dorsal longitudinal incision made with 15 blade knife over the metatarsophalangeal joint of the hallux. Hemostasis controlled electrocautery. Dorsal capsulotomy performed for formed in the extensor tendon retracted laterally. Joint was inspected. Noted to be loss of cartilage on the dorsal 50% of the joint in 2 areas just to the medial and lateral aspect of the midline. These were down to bone. Planter aspect of the joint was intact. Osteotome was then used to resect the large dorsal eminence as well as the degenerative portions of the joint on the dorsal aspect medial and lateral. Bone were further removed and smoothed with a rongeur. The plantar plate and the sesamoids were then inspected. The medial lateral sesamoids were noted to be intact without degenerative changes. There did appear to be degenerative changes or tearing of the lateral portion of the capsule just lateral to the lateral sesamoid. This was debrided with a rongeur then repaired with 0 Vicryl interrupted suture. Wound was then thoroughly irrigated with antibiotic solution. Image intensification brought in to confirm resection level of the 1st metatarsal. It was noted to be good. Bone wax was used on the dorsum of the metatarsal to prevent further bone growth. The capsules then repaired with 0 Vicryl interrupted suture. Subcutaneous tissue repaired with 3 Monocryl interrupted suture and skin repaired for nylon running suture. Sterile dressing applied. The patient was then woken from anesthesia, extubated and taken to the recovery room in stable condition. All sponge, needle, instrument counts were correct at the end of the case. Anesthesia: GLMA Surgeon: Manoj Fernando MD Surveyor Helper: 1st certified physician assistant Estimated blood loss (mL): 5 Tourniquet time (min): 45 Drains: No Packing: No Pathology: none sent Complications: None Condition: stable Disposition: PACU
== END 2020-06-10 13:23 | disposition home or self-care (01) ==
PROVIDERS: PCP Family Medicine; Visit Provider Orthopaedic Surgery
PROC: (CPT 28289; principal; 2020-06-10 09:00)
DX: M20.22 Hallux rigidus, left foot (principal); M25.872 Other specified joint disorders, left ankle and foot; J45.909 Unspecified asthma, uncomplicated; F41.8 Other specified anxiety disorders; K21.9 Gastro-esophageal reflux disease without esophagitis; E80.4 Gilbert syndrome; E78.2 Mixed hyperlipidemia; E88.09 Other disorders of plasma-protein metabolism, not elsewhere classified; F43.10 Post-traumatic stress disorder, unspecified; Z87.891 Personal history of nicotine dependence; E66.9 Obesity, unspecified; Z68.39 Body mass index [BMI] 39.0-39.9, adult
CPT/HCPCS: 28289; 97116; A9270; J0690; J1100; J1885; J2250; J2405; J2704; J3010; J7120

== ENCOUNTER 2020-12-29 17:40 | Outpatient (CLI) | payer OTHER, SELFPAY ==
[2020-12-29 18:45] LABS: Vitamin D 25 Hydroxy 34.1 ng/mL
[2020-12-29 19:13] LABS: Folic Acid 17.7 ng/mL (2.76->20)
== END 2020-12-29 17:41 | disposition home or self-care (01) ==
PROVIDERS: PCP Family Medicine; Visit Provider Psychiatry & Neurology Psychiatry
DX: F33.2 Major depressive disorder, recurrent severe without psychotic features (principal)
CPT/HCPCS: 36415; 82306; 82607; 82746; 84443

== ENCOUNTER 2021-04-22 07:52 | Outpatient (CLI) | payer OTHER, SELFPAY ==
--- NOTE | ~2021-04-22 | NM_ITS ---
EXAMINATION: NM brandi stress w perfusion DATE: 04/22/2021 10:19 INDICATION: Myocardial degeneration. Shortness of breath. TECHNIQUE: Rest images were obtained following intravenous administration of 10.91 mCi Tc99m tetrofos min (Myoview). The patient was infused intravenously with Lexiscan (Regadenoson). Then, 31.2 mCi Tc99 m tetrofosmin (Myoview) was administered intravenously, and stress images were obtained. Data was rec onstructed into short axis and horizontal and vertical long axis SPECT images. Gated SPECT images wer e also obtained. COMPARISON: None. FINDINGS: There is no definite reversible or fixed perfusion abnormality to suggest ischemia or infar ction. There is normal left ventricular chamber size, wall motion and ejection fraction. Left ventr icular ejection fraction measures >70%. IMPRESSION: 1. Normal myocardial perfusion at rest and during stress. 2. Left ventricular ejection fraction measuring >70%. Reviewed, dictated and finalized at location A.
--- NOTE | 2021-04-22 08:54 | EST_ITS ---
Patient Info Name: Jessica Zepeda Age: 60 years : 1960 Gender: Female Ht: 66 in Wt: 250 lbs BSA: 2.35 m2 HR: 61 bpm BP: 134 / 91 mmHg Heart Rhythm: Sinus Rhythm Exam Date: 04/22/2021 9:06 AM Exam Location: [facility] Stress Patient Status: Outpatient Admit Date: 04/22/2021 Staff Ordering Physician: Ciera Duncan MD Attending Provider: Ciera Duncan MD Exercise Technologist: Lyssa Swift CT Exercise Physician: Gregor Grover DO Exam Type: CA stress brandi w NM Study Info Indications R06.02 - Shortness of breath R07.9 - Chest pain, unspecified A regadenoson stress test was performed. Summary 1. 1. Negative lexiscan stress test for ischemic ST changes by ECG criteria. 2. 2. Stable hemodynamics throughout the test. 3. 3. Nuclear scan to follow and will be reported separately. Please correlate with it. 4. 4. Patient informed of the above results. Protocol: Lexiscan Stress ECG Details Stage: REST Duration (min): 9 min : 47 sec HR (bpm): 61 SBP (mmHg): 134 DBP (mmHg): 91 Stage: REST Duration (min): 22 min : 6 sec HR (bpm): 62 SBP (mmHg): 134 DBP (mmHg): 91 Stage: STAGE 1 Duration (min): 1 min : 0 sec HR (bpm): 84 SBP (mmHg): 151 DBP (mmHg): 78 Stage: RECOVERY Duration (min): 1 min : 0 sec HR (bpm): 88 SBP (mmHg): 151 DBP (mmHg): 78 Stage: RECOVERY Duration (min): 2 min : 0 sec HR (bpm): 82 SBP (mmHg): 151 DBP (mmHg): 78 Stage: RECOVERY Duration (min): 3 min : 0 sec HR (bpm): 76 SBP (mmHg): 158 DBP (mmHg): 75 Stage: RECOVERY Duration (min): 4 min : 0 sec HR (bpm): --- SBP (mmHg): 158 DBP (mmHg): 75 Stage: RECOVERY Duration (min): 4 min : 8 sec HR (bpm): --- SBP (mmHg): 158 DBP (mmHg): 75 Rest HR: 62 bpm Peak HR: 88 bpm Rest Sys BP: 134 mmHg Peak Sys BP: 158 mmHg Max Pred HR: 162 bpm % Max Pred HR: 54 % Target HR: 138 bpm Max RPP: 13,904 bpm*mmHg Termination Reason: Completed protocol Cardiac Symptoms: Shortness of breath Total Time: 1 min : 0 sec Rest Silva BP: 91 mmHg Peak Silva BP: 75 mmHg Total Dose: 0.4 mg Resting ECG Sinus rhythm, IRBBB. Stress ECG No ST changes. Arrhythmias None. Report Signatures
== END 2021-04-22 07:53 | disposition home or self-care (01) ==
PROVIDERS: PCP Family Medicine; Visit Provider Family Medicine
DX: R06.00 Dyspnea, unspecified (principal); B94.8 Sequelae of other specified infectious and parasitic diseases; G47.33 Obstructive sleep apnea (adult) (pediatric); I51.5 Myocardial degeneration
CPT/HCPCS: 78452; 93017; A9502

== ENCOUNTER 2022-08-15 13:40 | Outpatient (CLI) | payer BC, SELFPAY ==
--- NOTE | ~2022-08-15 | US_ITS ---
EXAMINATION: US aorta DATE: 08/15/2022 14:21 INDICATION: Infrarenal abdominal aortic aneurysm TECHNIQUE: Grayscale, color Doppler, and pulsed Doppler images of the aorta and common iliac arteries were obtained. COMPARISON: CT, 09/09/2017 FINDINGS: Maximum vascular dimensions are as follows: Proximal aorta: 2.2 cm Mid aorta: 1.9 cm Distal aorta: 1.6 cm Right common iliac artery: 0.9 cm Left common iliac artery: 1.1 cm There is no evidence of abdominal aortic aneurysm. IMPRESSION: 1. No sonographic evidence of abdominal aortic aneurysm. Reviewed, dictated and finalized at location L. ER GRADER
== END 2022-08-15 13:41 | disposition home or self-care (01) ==
PROVIDERS: PCP Family Medicine; Visit Provider Family Medicine
DX: Z76.89 Persons encountering health services in other specified circumstances (principal)
CPT/HCPCS: 76775

== ENCOUNTER 2023-11-01 15:00 | Outpatient (CLI) | payer MEDICARE, OTHER, SELFPAY ==
[2023-11-01 19:12] LABS: Alanine Aminotransferase 26 U/L (6-35); Albumin Level 4.4 g/dL (3.5-5.1); Alkaline Phosphatase 122 U/L (38-126); Anion Gap 7 mmol/L (4-12); Aspartate Amino Transferase 37 U/L (14-36); Bilirubin,Total 0.8 mg/dL (0.2-1.3); Blood Urea Nitrogen 13 mg/dL (7-17); Calcium 9.7 mg/dL (8.4-10.2); Carbon Dioxide 29 mmol/L (22-30); Chloride 104 mmol/L (98-107); Cholesterol 150 mg/dL (0-200); Estimated Glomerular Filt Rate > 60; Glucose 83 mg/dL (65-110); HDL Direct 37 mg/dL; Potassium 4.3 mmol/L (3.4-5.0); Sodium 140 mmol/L (137-145); Triglycerides 157 mg/dL (<150)
[2023-11-01 19:23] LABS: LDL Cholesterol Direct 91 mg/dL
[2023-11-01 19:46] LABS: Thyroid Stimulating Hormone 0.652 uIU/mL (0.465-4.680)
[2023-11-01 20:29] LABS: Vitamin D 25 Hydroxy 47.5 ng/mL
[2023-11-01 20:52] LABS: Hemoglobin A1C 5.3 % (<5.7)
== END 2023-11-01 15:01 | disposition home or self-care (01) ==
LOC: ANHGOSHLAB 15:02
PROVIDERS: PCP Family Medicine; Visit Provider Family Medicine
DX: I25.10 Atherosclerotic heart disease of native coronary artery without angina pectoris (principal); R73.03 Prediabetes; R41.3 Other amnesia; E03.9 Hypothyroidism, unspecified; E55.9 Vitamin D deficiency, unspecified
CPT/HCPCS: 36415; 80053; 80061; 82306; 82607; 83036; 84443

== ENCOUNTER 2023-12-07 12:16 | Outpatient (CLI) | payer MEDICARE, OTHER, SELFPAY ==
--- NOTE | ~2023-12-07 | XR_ITS ---
XR knee RT 3V Ordering provider: Ciera Duncan MD History: . M23.90 - Unspecified internal derangement of unspecified ... . Comparison: None. FINDINGS: BONES: No acute fracture or dislocation. JOINT SPACES: Normal. SOFT TISSUES: Normal. IMPRESSION: No acute osseous abnormality right knee. Reviewed, dictated and finalized at location A.
== END 2023-12-07 12:17 | disposition home or self-care (01) ==
LOC: ANHIMG 12:21
PROVIDERS: PCP Family Medicine; Visit Provider Family Medicine
DX: M23.91 Unspecified internal derangement of right knee (principal)
CPT/HCPCS: 73562

== ENCOUNTER 2024-07-08 15:21 | Outpatient (CLI) | payer MEDICARE, OTHER, SELFPAY ==
[2024-07-08 20:01] LABS: Basophils Absolute Auto 0.1 K/mm3 (0.0-0.1); Basophils Percent Auto 0.8 % (0.2-1.2); Eosinophils Absolute Auto 0.3 K/mm3 (0-0.3); Eosinophils Percent Auto 2.7 % (0-4.4); Hematocrit 39.9 % (37.0-47.0); Hemoglobin 12.5 g/dL (12.0-15.0); Immature Granulocyte Absolute 0.05 K/mm3 (0.00-0.031); Immature Granulocyte Percent A 0.5 % (0-0.5); Lymphocytes Percent Auto 36.3 % (18.3-44.2); Mean Corpuscular HGB Conc 31.3 g/dl (32-36); Mean Corpuscular Hemoglobin 28.5 pg (26-34); Mean Corpuscular Volume 90.9 fl (80-100); Mean Platelet Volume 10.3 fl (7.4-10.4); Monocytes Absolute Auto 0.9 K/mm3 (0.1-0.6); Monocytes Percent Auto 8.4 % (2.6-8.5); Neutrophils Absolute Auto 5.2 K/mm3 (1.3-6.7); Neutrophils Percent Auto 51.3 % (45.5-73.1); Platelet Count Result 275 k/mm3 (150-375); Red Blood Count 4.39 M/mm3 (4.2-5.4); Red Cell Distribution Width 12.8 % (11.5-14.5); White Blood Count 10.2 K/mm3 (4.5-10.0)
[2024-07-08 20:46] LABS: Alanine Aminotransferase 53 U/L (6-35); Alkaline Phosphatase 140 U/L (38-126); Anion Gap 2 mmol/L (4-12); Aspartate Amino Transferase 41 U/L (14-36); Bilirubin,Total 0.6 mg/dL (0.2-1.3); Blood Urea Nitrogen 13 mg/dL (7-17); Calcium 8.9 mg/dL (8.4-10.2); Carbon Dioxide 34 mmol/L (22-30); Chloride 102 mmol/L (98-107); Estimated Glomerular Filt Rate > 60; Glucose 104 mg/dL (65-110); Potassium 4.5 mmol/L (3.4-5.0); Sodium 138 mmol/L (137-145)
== END 2024-07-08 15:22 | disposition home or self-care (01) ==
LOC: ANHGOSHLAB 15:22
PROVIDERS: PCP Family Medicine; Visit Provider Family Medicine
DX: G47.33 Obstructive sleep apnea (adult) (pediatric) (principal); E88.810 Metabolic syndrome; E88.818 Other insulin resistance
CPT/HCPCS: 36415; 80053; 85025

== ENCOUNTER 2024-07-18 07:56 | Outpatient (CLI) | payer MEDICARE, OTHER, SELFPAY ==
--- NOTE | ~2024-07-18 | US_ITS ---
US renal BI Ordering provider: Ciera Duncan MD History: . I10 - Essential (primary) hypertension . Comparison: None. Technique: Ultrasound bilateral kidneys. Findings: RIGHT KIDNEY: Measures 10.3x 5.6 x 6.3 cm in length which is normal in size. No renal cysts. No renal mass or visualized echogenic stones. Otherwise, normal echotexture and contour. No hydronephrosis. N ormal renal cortical thickness. LEFT KIDNEY: Measures 10.4x 5.3x 4.8 cm in length which is normal in size. No renal cysts. No renal m ass or visualized echogenic stones. Otherwise, normal echotexture and contour. No hydronephrosis. Nor mal renal cortical thickness. BLADDER: Underfilled. IMPRESSION: No definite abnormality seen. Reviewed, dictated and finalized at location A. D PRODUCER
--- NOTE | ~2024-07-18 | US_ITS ---
Limited ABDOMINAL ULTRASOUND Ordering provider: Ciera Duncan MD History: . R79.89 - Other specified abnormal findings of blood chemi... . Comparison: None. FINDINGS: LIVER: Normal size and increased echotexture. No focal hepatic lesions or perihepatic fluid collectio ns are identified. Portal vein flow is normal. GALLBLADDER: Unremarkable. No evidence for stones, sludge, gallbladder wall thickening or pericholecy stic fluid collections. wall thickness is 1 mm. A negative sonographic Langford's sign was noted. BILIARY DUCTS: No evidence for intra or extrahepatic biliary dilation. Common bile duct measures 4 mm in diameter which is within normal limits. PANCREAS: Not well demonstrated. UPPER ABDOMINAL AORTA: Normal in caliber. IVC: Patent. FREE FLUID: None. IMPRESSION: fat infiltration of the liver. Otherwise, Unremarkable limited ultrasound of the abdomen. Reviewed, dictated and finalized at location A. ETING COORDINATOR IMPRESSION: fat infiltration of the liver. Otherwise, Unremarkable limited ultrasound of th e abdomen.
== END 2024-07-18 07:57 | disposition home or self-care (01) ==
LOC: MICIMG 07:58
PROVIDERS: PCP Family Medicine; Visit Provider Family Medicine
DX: R79.89 Other specified abnormal findings of blood chemistry (principal); I10 Essential (primary) hypertension
CPT/HCPCS: 76705; 76775

== ENCOUNTER 2024-07-18 09:55 | Outpatient (CLI) | payer MEDICARE, SELFPAY ==
--- NOTE | ~2024-07-18 | US_ITS ---
EXAMINATION: US retroperitoneal duplex ltd DATE: 07/18/2024 10:41 INDICATION: Essential hypertension TECHNIQUE: Multiple grayscale, color Doppler, and pulsed Doppler images of the kidneys and renal haley chris were obtained. COMPARISON: None. FINDINGS: The aorta peak systolic velocity is 111 cm/s. The right renal artery peak systolic velocity is 68 cm/ s in the proximal segment, 59 cm/s in the mid segment, and 54 cm/s in the distal segment. The left re nal artery peak systolic velocity is 76 cm/s in the proximal segment, 51 cm/s in the mid segment, and 68 cm/s in the distal segment. IMPRESSION: 1. No Doppler evidence of renal artery stenosis. Reviewed, dictated and finalized at location B. CTOR OF STATE
== END 2024-07-18 09:56 | disposition home or self-care (01) ==
PROVIDERS: PCP Family Medicine; Visit Provider Family Medicine
DX: I10 Essential (primary) hypertension (principal)
CPT/HCPCS: 93976

== ENCOUNTER 2024-09-17 15:38 | Emergency (ER) | payer MEDICARE, OTHER, SELFPAY ==
--- NOTE | ~2024-09-17 | XR_ITS ---
EXAMINATION: XR chest 2V DATE: 09/17/2024 16:24 INDICATION: Asthma presenting with 5 days of cough and coarse lung sounds. TECHNIQUE: frontal and lateral views of the chest were obtained. COMPARISON: Chest radiograph dated 02/17/2020 FINDINGS: Mild elevation the left hemidiaphragm. Mild opacities along the left lung base which could represent atelectasis or pneumonia. No pulmonary edema, pleural effusion or pneumothorax. The cardiomediastinal silhouette is normal. Visualized bones and soft tissues are unremarkable. IMPRESSION: 1. Mild elevation the left hemidiaphragm with left basilar atelectasis versus pneumonia. Reviewed, dictated and finalized at location A. IMPRESSION: 1. Mild elevation the left hemidiaphragm with left basilar atelectasis versus p neumonia.
[2024-09-17 15:51] VITALS: BP 118/61; PULSE 74; RESP 18; TEMP 36.6; O2SAT 97
--- NOTE | 2024-09-17 16:22 | ED_ITS ---
HPI - URI/Sore Throat General Chief Complaint: Upper Respiratory Infection Stated Complaint: phlegm Time Seen by Provider: 09/17/24 16:23 Source: patient Mode of arrival: ambulatory Limitations: no limitations History of Present Illness HPI Narrative: 64 yo F with hx of asthma presents with c/o cough for approx. 4 to 5 days. SOB with exertion. Last gave herself albuterol neb this AM. Has had low grade fever. All systems reviewed and negative except as noted above. Related Data Home Medications ?Medication ?Instructions ?Recorded ?Confirmed ?Last Taken ?Type nitroglycerin 0.4 mg sublingual 0.4 mg sublingual Q5M PRN 11/30/21 08/21/24 Unknown History tablet furosemide 20 mg tablet 10 mg PO QAM PRN edema 05/03/22 09/17/24 Unknown History bisoprolol fumarate 10 mg tablet mg PO DAILY 07/08/24 08/21/24 Unknown History fluticasone propionate 50 intranasal 07/08/24 08/21/24 Unknown History mcg/actuation nasal spray,suspension hairs, skin, nails PO 07/08/24 08/21/24 Unknown History magnesium glycinate mg PO 07/08/24 08/21/24 Unknown History metamucil PO 07/08/24 08/21/24 Unknown History multivitamin with minerals-folic tablet PO 07/08/24 08/21/24 Unknown History acid 0.4 mg tablet (One-A-Day Women's 50 Plus) refresh optive michel 3 PO 07/08/24 08/21/24 Unknown History vitamin K2 40 mcg tablet 40 mcg PO DAILY 07/08/24 08/21/24 Unknown History amlodipine 5 mg tablet 10 mg PO DAILY 08/21/24 08/21/24 Unknown History isosorbide mononitrate 60 mg 120 mg PO ONCE 08/21/24 08/21/24 Unknown History tablet,extended release 24 hr Allergies Allergy/AdvReac Type Severity Reaction Status Date / Time bacitracin (From Neosporin Allergy Intermediate Rash Verified 09/17/24 15:59 ([id number])) neomycin (From Neosporin Allergy Intermediate Rash Verified 09/17/24 15:59 ([id number])) polymyxin B (From Neosporin Allergy Intermediate Rash Verified 09/17/24 15:59 ([id number])) adhesive tape Allergy Mild ITCHY/REDNE Verified 09/17/24 15:59 SS erythromycin base Allergy Unknown -hives Verified 09/17/24 15:59 succinylcholine AdvReac Severe SEVERE Verified 09/17/24 15:59 MUSCLE SORENESS vortioxetine AdvReac Unknown Nausea And Verified 09/17/24 15:59 Vomiting Review of Systems Review of Systems: CONSTITUTIONAL: Reports fever, chills, or sweats. reports fatigue. EYES: Denies visual changes, redness, or discharge. ENT: Denies rhinorrhea, congestion, sore throat, or otalgia. CARDIOVASCULAR: Denies chest pain, palpitations, or edema. RESPIRATORY: reports cough, chest congestion, dyspnea with exertion. GASTROINTESTINAL: Denies abdominal pain, nausea, vomiting, or diarrhea. GENITOURINARY: Denies dysuria or hematuria. SKIN: Denies rash or itching. MUSCULOSKELETAL: Denies back pain, joint pain, or myalgia. NEUROLOGIC: Denies headache, numbness, or weakness. PSYCHIATRIC: Denies anxiety or depression. All other systems reviewed are negative, except as documented in HPI. [facility] Past Medical History Medical History Olecranon bursitis, right elbow Pes anserine bursitis Paraesophageal hernia redo repair Umbilical hernia Cervical radiculopathy Sesamoiditis Neurologic abnormality Shortness of breath History of 2019 novel coronavirus disease (COVID-19) Hypoxia COVID-19 Peptic ulceration Hearing loss Hx of recurrent pneumonia Hx of acute bronchitis Anxiety Cervical arthritis Hallux rigidus of left foot Breast cancer s/p right mastectomy and LN biopsy for a T1N0 invasive mucinous CA; no chemo but did XRT then Arimidex but stopped after a few days due to side effects Arthritis Asthma Calculus of ureter Major depressive disorder, single episode, unspecified Mixed hyperlipidemia Surgical History Surgical History H/O thumb surgery arthritis/bone removes right S/P rotator cuff repair x2 History of tonsillectomy History of Bindu fundoplication H/O knee surgery arthroscopic - meniscus repair on right in 2011 H/O: hysterectomy EMMANUELLE/BSO H/O hernia repair 2nd fundoplication 2.29.24 H/O foot surgery right; bone broken in 4 places H/O elbow surgery H/O colonoscopy 2011 History of carpal tunnel release bilateral S/P breast lumpectomy Right 11/10/18 H/O breast biopsy Right 09/13/18; Right 10/08/18; Family History Family History Mother Depression Asthma Diabetes mellitus Family history of malignant neoplasm of breast Grandparent Family history of glaucoma Hypertension Cerebrovascular accident Family history of Alzheimer's disease Family history of pancreatic cancer Father Family history of osteoporosis Family history of atrial fibrillation Sibling No problems noted. Other Family history of arthritis Family history of malignant neoplasm Family history of malignant neoplasm of stomach Social History Social History Social History: Patient lives home alone. She is single. No children. She is a full code. She nominates her brother Aayush be the individual would make medical decisions for her if she is not able. She quit tobacco in 1998 after smoking 2 packs per week for about 10 years. When she feels well, she has known to drink 2-3 alcoholic drinks per month. no drug use. Smoking packs per day: 0.5 Smoking cigarettes per day: 10.0 Years smoked: 10 Smoking pack-years: 5.00 Smoking status: Former smoker Tobacco type: cigarettes Second hand tobacco smoke exposure: Yes Smoking end date: 05/02/99 Alcohol intake: current Drinks per week: 1 Alcohol use details: Occasional Substance use: never Substance use type: does not use Do You Feel Safe in your Home?: Yes Lack of Transportation: No Lack of Food: Never True Current Housing: I Have Housing Concerned About Future Housing: No Difficulty Paying Gas/Electric Bills: No Difficulty Paying for Meds: No Currently Unemployed: No Education: Bachelor's Degree Difficulty w/ Childcare or Family Care: No Living arrangements: alone Occupation/Education: retired Gender identity (if verbalized by the patient): Female Spiritual care concerns: No Comments At time of signature, agree with nursing past medical, surgical, social and family history. There is no relevant family history pertinent to the presenting complaint. Exam Narrative: GENERAL: This is a well-nourished, well-developed patient, ill-appearing but in no acute distress HEAD: normocephalic, atraumatic. EYES: PERRL. Sclera clear/white. Vision is grossly intact. EARS: External ears normal, auditory canals clear and without drainage, TMs normal without perforation. Hearing grossly intact. NOSE: External nose normal with Mild congestion, clear nasal drainage THROAT: Mucous membranes moist, posterior pharynx clear. NECK: Neck supple, non-tender without lymphadenopathy, masses or thyromegaly. CARDIOVASCULAR: Regular rate and rhythm without murmurs, gallops, or rubs. RESPIRATORY: coarse throughout all lung gloria. Breath sounds equal bilaterally. No wheezes, rales, or rhonchi. SKIN: warm, Dry, intact with no suspicious lesions or rash, good texture and turgor. NEURO: awake, alert, and oriented to person, place and time. There were no obvious focal neurologic abnormalities. EXTREMITIES: No joint tenderness, effusion, or edema noted. Course Course Level of Care: Express Care Visit Vital Signs Vital signs: Vital Signs Temperature 36.6 C 09/17/24 15:51 Pulse Rate 74 09/17/24 15:51 Respiratory Rate 18 09/17/24 15:51 Blood Pressure 118/61 09/17/24 15:51 Pulse Oximetry 97 09/17/24 15:51 Oxygen Delivery Room Air 09/17/24 15:51 Temperature 36.6 C 09/17/24 15:51 Pulse Rate 74 09/17/24 15:51 Respiratory Rate 18 09/17/24 15:51 Blood Pressure 118/61 09/17/24 15:51 Pulse Oximetry 97 09/17/24 15:51 Oxygen Delivery Room Air 09/17/24 15:51 reviewed MDM - URI/Sore Throat MDM Narrative Medical decision making narrative: discussed x-ray results with patient. Will treat for pneumonia. Patient is alert, nontoxic. Recommend follow-up with primary care physician in 1 week. Please be advised this is a medical document. It is intended for [id number] communication. It is written in medical language and may contain unfamiliar abbreviations or verbiage. Medical documents are intended to carry relevant information, facts as evident, and the clinical opinion of the practitioner at the time of the encounter. This report may have been done utilizing a voice recognition system. Attempts have been made to correct errors. However, there may be uncorrected grammatical, spelling, and recognition errors present. The file time of this note does not necessarily represent the time of service. Lab Data Labs: Lab Results 09/17/24 Range/Units 16:45 POC Influenza A Ag Negative (Negative) POC Influenza B Ag Negative (Negative) Imaging Data My impression: agree with radiologist Radiologist's impression: EXAMINATION: XR chest 2V DATE: 09/17/2024 16:24 INDICATION: Asthma presenting with 5 days of cough and coarse lung sounds. TECHNIQUE: frontal and lateral views of the chest were obtained. COMPARISON: Chest radiograph dated 02/17/2020 FINDINGS: Mild elevation the left hemidiaphragm. Mild opacities along the left lung base which could represent atelectasis or pneumonia. No pulmonary edema, pleural effusion or pneumothorax. The cardiomediastinal silhouette is normal. Visualized bones and soft tissues are unremarkable. IMPRESSION: 1. Mild elevation the left hemidiaphragm with left basilar atelectasis versus pneumonia. Discharge Plan Discharge Clinical Impression: Pneumonia, Asthma exacerbation Patient Disposition: Home, Self-Care Condition: Stable Instructions: Antibiotic Form, Pneumonia (ED) Additional Instructions: your chest x-ray showed possible pneumonia. Take antibiotic as prescribed until gone. Start prednisone prescription tomorrow morning. Continue using inhalers as prescribed. Follow-up with your primary care physician in 1 week. Patient Language: Luxembourgish Prescriptions: New doxycycline hyclate 100 mg capsule 100 mg PO BID 7 Days Qty: 14 0RF benzonatate 200 mg capsule 200 mg PO TID PRN (Reason: cough) Qty: 20 0RF prednisone 20 mg tablet 40 mg PO DAILY 5 Days Qty: 10 0RF No Action bisoprolol fumarate 10 mg tablet PO DAILY fluticasone propionate 50 mcg/actuation spray,suspension intranasal hairs, skin, nails PO multivit with min-folic acid [One-A-Day Women's 50 Plus] 0.4 mg tablet PO vitamin K2 40 mcg tablet 40 mcg PO DAILY refresh optive michel 3 tablet PO magnesium glycinate 100 mg magnesium capsule PO metamucil PO albuterol sulfate 2.5 mg /3 mL (0.083 %) solution for nebulization 2.5 mg continuous nebulization Q4-6H PRN (Reason: bronchospasm) Qty: 150 3RF alprazolam 0.25 mg tablet 0.25 mg PO TID PRN (Reason: anxiety) Qty: 90 5RF atorvastatin 20 mg tablet See Rx Instructions .ROUTE .COMPLEX Qty: 90 3RF Dose Instruction: TAKE 1 TABLET BY MOUTH EVERYDAY AT BEDTIME Rx Instructions: TAKE 1 TABLET BY MOUTH EVERYDAY AT BEDTIME bupropion HCl 300 mg tablet extended release 24 hr 300 mg PO QAM Qty: 90 3RF clonidine HCl 0.2 mg tablet See Rx Instructions .ROUTE .COMPLEX Qty: 90 3RF Dose Instruction: TAKE 1 TABLET BY MOUTH EVERY DAY AT BEDTIME Rx Instructions: TAKE 1 TABLET BY MOUTH EVERY DAY AT BEDTIME duloxetine 60 mg capsule,delayed release(DR/EC) 60 mg PO DAILY Qty: 90 3RF ferrous sulfate 325 mg (65 mg iron) tablet 325 mg PO BID Qty: 60 11RF levothyroxine 50 mcg tablet 50 mcg PO DAILY Qty: 90 3RF montelukast 10 mg tablet See Rx Instructions .ROUTE .COMPLEX Qty: 90 3RF Dose Instruction: TAKE 1 TABLET BY MOUTH EVERY DAY AT BEDTIME Rx Instructions: TAKE 1 TABLET BY MOUTH EVERY DAY AT BEDTIME tramadol 50 mg tablet 50 mg PO BID PRN (Reason: pain) Qty: 60 5RF Vitamin D3 2,000 Unit Softg See Rx Instructions .ROUTE .COMPLEX Qty: 90 3RF Dose Instruction: TAKE 1 CAPSULE BY MOUTH DAILY Rx Instructions: TAKE 1 CAPSULE BY MOUTH DAILY amlodipine 5 mg tablet 10 mg PO DAILY isosorbide mononitrate 60 mg tablet extended release 24 hr 120 mg PO ONCE Rx Instructions: 1.5 tablets to equal 90 mg nitroglycerin 0.4 mg tablet, sublingual 0.4 mg sublingual Q5M PRN Rx Instructions: do not exceed 3 doses per episode furosemide 20 mg tablet 10 mg PO QAM PRN (Reason: edema) (DME) peak flow meter Device See Rx Instructions .ROUTE .MEDSUPPLY Qty: 1 0RF Rx Instructions: As directed aspirin [Adult Low Dose Aspirin] 81 mg tablet,delayed release (DR/EC) 81 mg PO DAILY Qty: 90 3RF levalbuterol tartrate 45 mcg/actuation HFA aerosol inhaler 2 inh inhalation Q6H PRN (Reason: shortness of breath or wheezing) Qty: 45 3RF Follow-up/Referrals: Ciera Duncan MD [Primary Care Provider] - Time of Disposition: 17:06
[2024-09-17] MEDS: predniSONE 20 MG TABLET 40 MG PO (16:34)
[2024-09-17] MEDS: IPRATROPIUM 0.5 MG/ALBUTEROL SULFATE 2.5 MG AMPUL.NEB 3 ML INHALATION (16:34)
[2024-09-17 16:47] LABS: EDINFLUASCREEN Negative (Negative); EDINFLUBSCREEN Negative (Negative)
--- OUTSIDE RECORDS SUMMARY | 2024-09-17 17:01 | XMS_ITS | Encounter Summary ---
Author Organization [facility] Healthcare Address [address] [place] [address] Care Team Providers Care Package Dyeing Machine Operator Name Role Phone Gisela Ribera MD PhD Unavailable Rae Oviedo MD Unavailable [phone] Ciera Duncan MD Primary Care Provider + Yolanda Brannon TEACHER EDUCATION DIRECTOR Unavailable [phone] Delroy Noel MD, Aquilino Nguyen Unavailable + Linda Marcial RN Unavailable Maame Mirian East MD Unavailable Roxanne Spring MD Unavailable [phone] Reason for Referral * Diagnostic Imaging (Routine) - Closed Specialty Diagnoses / Procedures Referred By Contac t Referred To Contact Diagnoses Mass of right breast, unspecified quadrant Procedures US Breast Right Limited Franny Mark NP [address] [facility] [id number] [place] [address] Phone: tel: fax: [facility] [address] [place] [address] Referral ID Status Reason Start Date Expiration Date Visits Re quested Visits Authorized [id number] Closed 08/21/2024 09/20/2025 1 1 Reason for Visit * Diagnostic Imaging (Routine) - Closed Specialty Diagnoses / Procedures Referred By Contac t Referred To Contact Diagnoses Mass of right breast, unspecified quadrant Procedures US Breast Right Limited Franny Mark NP [address] [id number] [place] [address] Phone: tel: fax: [facility] [address] [place] [address] Referral ID Status Reason Start Date Expiration Date Visits Re quested Visits Authorized [id number] Closed 08/21/2024 09/20/2025 1 1 Encounter Details Date Type Department Care Team (Latest Contact Info) Description 09/17/2024 9:20 AM CDT Hospital Encounter [facility] - Breast Imaging [address] [facility] [address] [place] [address] Mass of right breast, unspecified quadrant Social History Tobacco Use Types Packs/Day Years [...] on file Legal Sex Female 10:00 AM DIRECTOR OF DIGITAL TECHNOLOGY Gender Identity Female 06/21/2021 11:15 AM DIRECTOR OF DIGITAL TECHNOLOGY Sexual Orientation Straight 12/04/2018 12 :10 PM CDT documented as of this encounter Plan of Treatment Not on file documented as of this encounter Goals Goal Patient Goal Type Associated Problems Recent Progress Patient-Stated? Author CCM Chronic Pain Care Plan Chronic Care Management No change(11/2022 11:13 AM CDT) No Suzan Isabel, RN Note: Problem: Chronic Pain Goals: 1. [...] glitch) Problems with Health Conditions No Anabelle Tanner LCSW Note: New Extended Expected End Date 07/07/2022 06/09/2022 - Extended. 1) Pt had an opportunity to drive Parents car back from another state; it was the most relaxed time - no care to parents - no phone calls except are you ok ? It was so relaxing! 2) Pt met [...] know contributes to her feeling hopeless and anxious . 05/12 start date; Pt states frustration that [...] glitch) Poor Satisfaction with Living Conditions No Anabelle Tanner, SKILLED TRADES TEACHER Note: New Extended Expected End Date 07/07/2022 [...] for example) she is asking for a [employer] present from a family member to complete the task. 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 Focal asymmetry in the upper outer RIGHT breast that partially effaces and is favored to represent evolving fat necrosis/postsurgical change as seen on previous MRI. Of note, multiple biopsies of the RIGHT breast have been performed since the patient's breast conservation therapy in 2019, returning benign with findings of fibrosis and fat necrosis. Overall, findings are considered probably benign and six-month follow-up is recommended. 2. No suspicious mammographic or sonographic abnormality at the area of palpated concern. OVERALL FINAL ASSESSMENT: BI-RADS Category 3: Probably Benign. RECOMMENDATION: 1. Recommend follow-up diagnostic breast imaging in 6 months time with diagnostic mammogram of the RIGHT breast, and possible sonogram. Note that patient is also due for breast MRI around the same time. 2. Clinical follow-up. Dr. Leonel Cooley MD, Ph.D discussed the above findings and recommendations with the patient, who expressed her understanding of the management plan. Dictated by: Leonel Cooley MD, Ph.D The radiology attending physician has personally reviewed this study, and had reviewed and/or edited this written report and agrees with it. Electronically signed by: Ulysses Frost MD Narrative 09/17/2024 1:21 PM CDT EXAMINATION: RIGHT UNILATERAL DIGITAL DIAGNOSTIC MAMMOGRAM AND DIGITAL BREAST TOMOSYNTHESIS; RIGHT BREAST SONOGRAM HISTORY: 64-year-old woman with history of RIGHT breast invasive mucinous carcinoma post breast conservation therapy in 2019. New right breast lump and tenderness. COMPARISON: Screening mammogram 07/22/2024, 07/18/2023. MRI 02/04/2024. TECHNIQUE: Full field digital mammographic views of the RIGHT breast were performed, including computer aided detection (CAD) and digital breast tomosynthesis (DBT). Directed ultrasound evaluation of the RIGHT breast was performed by a trained cashier ticket selling and by Leonel Cooley MD, Ph.D. BREAST PARENCHYMAL COMPOSITION: There are scattered areas of fibroglandular density. MAMMOGRAM FINDINGS: Post breast conservation therapy changes in the RIGHT breast. A triangular marker on the skin of the RIGHT breast designates the site of patient reported palpable. There is no radiographic abnormality at the site of palpable concern. There is a focal asymmetry in the upper outer RIGHT breast (more medial and inferior to the site of palpable) that partially effaces on spot compression views, most prominent on MLO views. Targeted ultrasound was performed at this location. SONOGRAM FINDINGS: Targeted ultrasound of the RIGHT breast in the upper outer quadrant was performed, including at the area of palpable concern. There is no focal abnormal solid or cystic lesion suggestive of malignancy upper outer quadrant spanning to the nipple. Procedure Note Ulysses Frost MD - 09/17/2024 EXAMINATION: RIGHT UNILATERAL DIGITAL DIAGNOSTIC MAMMOGRAM AND DIGITAL BREAST TOMOSYNTHESIS; RIGHT BREAST SONOGRAM HISTORY: 64-year-old woman with history of RIGHT breast invasive mucinous carcinoma post breast conservation therapy in 2019. New right breast lump and tenderness. COMPARISON: Screening mammogram 07/22/2024, 07/18/2023. MRI 02/04/2024. TECHNIQUE: Full field digital mammographic views of the RIGHT breast were performed, including computer aided detection (CAD) and digital breast tomosynthesis (DBT). Directed ultrasound evaluation of the RIGHT breast was performed by a trained cashier ticket selling and by Leonel Cooley MD, Ph.D. BREAST PARENCHYMAL COMPOSITION: There are scattered areas of fibroglandular density. MAMMOGRAM FINDINGS: Post breast conservation therapy changes in the RIGHT breast. A triangular marker on the skin of the RIGHT breast designates the site of patient reported palpable. There is no radiographic abnormality at the site of palpable concern. There is a focal asymmetry in the upper outer RIGHT breast (more medial and inferior to the site of palpable) that partially effaces on spot compression views, most prominent on MLO views. Targeted ultrasound was performed at this location. SONOGRAM FINDINGS: Targeted ultrasound of the RIGHT breast in the upper outer quadrant was performed, including at the area of palpable concern. There is no focal abnormal solid or cystic lesion suggestive of malignancy upper outer quadrant spanning to the nipple. IMPRESSION: 1. Focal asymmetry in the upper outer RIGHT breast that partially effaces and is favored to represent evolving fat necrosis/postsurgical change as seen on previous MRI. Of note, multiple biopsies of the RIGHT breast have been performed since the patient's breast conservation therapy in 2019, returning benign with findings of fibrosis and fat necrosis. Overall, findings are considered probably benign and six-month follow-up is recommended. 2. No suspicious mammographic or sonographic abnormality at the area of palpated concern. OVERALL FINAL ASSESSMENT: BI-RADS Category 3: Probably Benign. RECOMMENDATION: 1. Recommend follow-up diagnostic breast imaging in 6 months time with diagnostic mammogram of the RIGHT breast, and possible sonogram. Note that patient is also due for breast MRI around the same time. 2. Clinical follow-up. Dr. Leonel Cooley MD, Ph.D discussed the above findings and recommendations with the patient, who expressed her understanding of the management plan. Dictated by: Leonel Cooley MD, Ph.D The radiology attending physician has personally reviewed this study, and had reviewed and/or edited this written report and agrees with it. Electronically signed by: Ulysses Frost MD Franny Mark NP IMG MAMMO PROCEDURES Fi nal Result documented in this encounter Visit Diagnoses Diagnosis Mass of right breast, unspecified quadrant documented in this encounter Additional Health Concerns Active Problems Noted Date Diagnosed Date Problem 1 (Reinstated 11/25) EPIC/EMR glitch) Problems with Health Conditions 12/13/2021 Note: [...] for listed symptoms of Depression, and Chronic Gvhh-Qbmnrfdlb-Xlvbcy-Disorder, in order to report improved management of [...] health condition changes which resulted in early halfway from career work, placement in [employer] & [...] for listed symptoms of Depression, and Chronic Lzbs-Nkbhkozkn-Wuivsd-Disorder, in order to report improved management of [...] individual only for 3x; Tx Order from Cycle Director/Psychiatrist to 1D/Wk Group Psychotherapy & 1Ind/@ 2wks 10/07. Pts next session was week of 10/17 and week of 10/24. Pt psychiatric re-evaluation was 10/28 with ON HOLD order for 30 days while she went to [place] to return with both of her aging parents ([place], [place]); her next psychiatric re-evaluation is scheduled [...] Due Date: 10/19/2021 Responsible User: Anabelle Tanner LCSW documented as of this encounter Care Teams Package Dyeing Machine Operator Relationship Specialty Start Date End Date Ciera Duncan MD [address] [facility] [address] [place] [address] PCP - General Family Medicine 07/16/20 Gisela Ribera MD PhD [address] [facility] [address] [place] [address] Radiation Oncologist Radiation Oncology 11/10/18 Rae Oviedo MD [address] [facility] [address] [place] [address] Surgeon Surgical Oncology 12/12/18 Yolanda Brannon, TARA [address] [facility] [address] [place] [address] Nurse Practitioner Nurse Practitioner 08/05/20 Aquilino Potts Jr., MD [address] [facility] [address] [place] [address] Consulting Physician Neurology 08/05/20 Linda Marcial, RN Registered Nurse Pulmonary Disease 09/06/22 Mirian Stratton MD Consulting Physician Cardiology 02/06/23 Roxanne Spring MD [address] [place] [address] Referring Physician Pulmonary Disease 02/06/23 documented as of this encounter
--- OUTSIDE RECORDS SUMMARY | 2024-09-17 17:01 | XMS_ITS | Encounter Summary ---
Author Organization [facility] Address 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 Associated Symptoms: elbow was bent and heard it pop, bruising across her elbow, swollen up and fingers are swollen, excruciating pain at accident and extreme when moved now Onset: 11 hours ago Location: rt elbow Pain Assessment: 1 - 10 with 10 being the most severe pain 1 when immobilized, 7 if moved now Treatment so far for current presenting problem: immobilized, pain meds History (Clinical Problems): (elevated cholesterol, asthma) tripped over the dog Medications: review- oral Medication reactions: review-oral <<<<<<<< TRIAGE NOTE >>>>>>>> Triage Note: Technologist Infectious Disease Karina Danielle added this note on Nov 01 2014 9:53AM: Pt states she will go to [facility] in [place], [place]. <<<<<<<< TRIAGE/OUTCOME >>>>>>>> Guideline Title: Elbow Injury Recommended Disposition: See ED Immediately Original Inclination: Seek Care in ER Intended Action: Seek care in ER Physician Contacted: No Unbearable pain since injury ? YES documented in this encounter Plan of Treatment Not on file documented as of this encounter Visit Diagnoses Not on filedocumented in this encounter
--- OUTSIDE RECORDS SUMMARY | 2024-09-17 17:01 | XMS_ITS | Clinical Summary ---
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
--- OUTSIDE RECORDS SUMMARY | 2024-09-17 17:01 | XMS_ITS | Encounter Summary ---
Author Organization [facility] Healthcare Address [address] [place] [address] Care Team Providers Care Hospital Tray Service Worker Name Role Phone Gisela Ribera MD PhD Unavailable Rae Oviedo MD Unavailable Lenora Gallo MD Unavailable [phone] Jil Mazariegos DPT Unavailable Ciera Duncan MD Primary Care Provider + Patrizia Arriaga DPT Unavail able Yolanda Brannon BASS FISHER Unavailable Delroy Noel MD, Aquilino Nguyen Unavailable + Linda Marcial RN Unavailable Maame Mirian East MD Unavailable [phone] Roxanne Spring MD Unavailable Encounter Details Date Type Department Care Team (Late st Contact Info) Description 02/02/2023 Documentation [facility] Senior Counseling [address] [place] [address] [place] [address] [facility] [address] [place] [address] Social History Tobacco Use Types Packs/Day Years Used Date Smoking Tobacco: Former Cigarettes 0.3 8 0 07/02/1990 - 07/02/1998 Smokeless Tobacco: Never Comments:smoked 2 packs a we ek for about 8 years Alcohol Use Standard Drinks/Week Comments Yes 0 (1 standard drink = 0.6 oz pur e alcohol) 4 drinks a year AUDIT-C Answer Date Recorded Q1: How often do you have a drink containing alc ohol? Monthly or less 05/15/2022 Average Number of Drinks Not on file 022 Frequency of Binge Drinking Not on file 05/02 PHQ-2 Answer Date Recorded PHQ-2 Total Score (If total score is 3 or more points, staff should administer the PHQ-9) 4 07/28/2021 Hunger Vital Sign Answer Date Recorded Within the past 12 months, y ou worried that your food would run out before you got the money to buy more. Never true 01/11/20 23 Within the past 12 months, t he food you bought just didn't last and you didn't have money to get more. Never true 01/10/2023 Comments No Sex and Gender Information Value Date Recorded Sex Assigned at Not on file Legal Sex Female 10:00 AM PRINCIPAL ANDROID DEVELOPER Gender Identity Female 06/21/2021 11:15 AM PRINCIPAL ANDROID DEVELOPER Sexual Orientation Straight 12/04/2018 12 :10 PM [...] Care Plan Problem 2. (Reinstated 11/25) EPIC/EMR edinson) Poor Satisfaction with Living Conditions No Anabelle Tanner, ASSOCIATE CONSULTING ENGINEER Note: New Extended Expected End Date 07/07/2022 [...] for example) she is asking for a [place] present from a family member to complete the task. 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 This goal will support her to identify 3 ways in which she can improve the satisfaction level of her current living conditions (recall Pt lives alone in her own home, and Parents live relatively close in their own home). documented as of this encounter Visit Diagnoses Not on filedocumented in this encounter Additional Health Concerns Active [...] for listed symptoms of Depression, and Chronic Nxsh-Tomgloanu-Mpxvar-Disorder, in order to report improved management of [...] health condition changes which resulted in early detention from career work, placement in [employer] & [...] for listed symptoms of Depression, and Chronic Axjz-Snashqjan-Llsufz-Disorder, in order to report improved management of [...] individual only for 3x; Tx Order from Manager Configuration/Psychiatrist to 1D/Wk Group Psychotherapy & 1Ind/@ 2wks 10/07. Pts next session was week of 10/17 and week of 10/24. Pt psychiatric re-evaluation was 10/28 with ON HOLD order for 30 days while she went to [place] to return with both of her aging parents ([place], [place]); her next psychiatric re-evaluation is scheduled for [...] Date: 10/19/2021 Responsible User: Anabelle Tanner LCSW Infection Onset Date Last Indicated Resolved Time COVID: Suspected 09/07/2023 09/07/2023 09/07/2023 6:27 PM PRINCIPAL ANDROID DEVELOPER documented as of this encounter Care Teams Hospital Tray Service Worker Relationship Specialty Start Date End Date Ciera Duncan MD [address] [facility] [address] [place] [address] PCP - General Family Medicine 07/16/20 Gisela Ribera MD PhD [address] [facility] [address] [place] [address] Radiation Oncologist Radiation Oncology 11/10/18 Rae Oviedo MD [address] [facility] [address] [place] [address] Surgeon Surgical Oncology 12/12/18 Lenora Gallo MD [address] [facility] [address] [place] [address] Medical Oncologist/Registered Sales Assistant Medical Oncology 01/07/19 02/05/23 Jil Mazariegos, DPT [address] [facility] [address] [address] Physical Therapist Physical Therapy 05/21/20 02/05/23 Patrizia Arriaga, DPT [address] [facility] [address] [address] Physical Therapist Physical Therapy 07/26/20 02/05/23 Yolanda Brannon, BASS FISHER [address] [facility] [address] [address] Nurse Practitioner Nurse Practitioner 08/05/20 Aquilino Potts Jr., MD [address] [facility] [address] [address] Consulting Physician Neurology 08/05/20 Linda Marcial, RN Registered Nurse Pulmonary Disease 09/06/22 Mirian Stratton MD Consulting Physician Cardiology 02/06/23 Roxanne Spring MD [address] [facility] [address] [place] [address] Referring Physician Pulmonary Disease 02/06/23 documented as of this encounter
--- OUTSIDE RECORDS SUMMARY | 2024-09-17 17:01 | XMS_ITS | Encounter Summary ---
Author Organization [facility] Healthcare Address [address] [place] [address] Care Team Providers Care Flight Communications Specialist Name Role Phone Gisela Ribera MD PhD Unavailable Rae Oviedo MD Unavailable [phone] Ciera Duncan MD Primary Care Provider + Yolanda Brannon NP Unavailable [phone] Delroy Noel MD, Aquilino Nguyen Unavailable + Linda Marcial RN Unavailable Maame Mirian East MD Unavailable [phone] Roxanne Spring MD Unavailable [phone] Reason for Visit * Diagnostic Imaging (Routine) - Closed Specialty Diagnoses / Procedures Referred By Felicia duffy Referred To Contact Diagnoses Mass of right breast, unspecified quadrant Breast pain Procedures Diagnostic Mammogram Right W Chaitanya Diagnostic Mammogram Bilateral W Chaitanya Franny Mark NP [address] [id number] [place] [address] Phone: tel: fax: [address] [phone] Referral ID Status Reason Start Date Expiration Date Visits Re quested Visits Authorized [id number] Closed 08/21/2024 09/20/2025 1 1 Encounter Details Date Type Department Care Team (Latest Contact Info) Description 09/17/2024 9:18 AM CDT Hospital Encounter [facility] - Breast Imaging [address] [facility] Floor [address] [place] [address] Mass of right breast, unspecified quadrant; Breast pain Social History Tobacco Use Types Packs/Day Years [...] on file 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 Care Plan Problem 2. (Reinstated 11/25) [employer]/EMR edinson) Poor Satisfaction with Living Conditions No Anabelle Tanner LCSW Note: New [...] for example) she is asking for a [place] present from a family member to complete the task. 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 BREAST [...] RIGHT breast was performed by a trained production consultant and by Leonel Cooley MD, Ph.D. BREAST [...] Electronically signed by: Ulysses Frost MD Franny Burden Jas PHARMACIST MANAGER IMG MAMMO PROCEDURES Fi nal Result documented in this encounter Visit Diagnoses Diagnosis Mass of right breast, unspecified quadrant Breast pain Mastodynia documented in this encounter Additional Health Concerns Active Problems Noted Date Diagnosed Date Problem 1 (Reinstated 11/25) [employer] glitch) Problems with Health Conditions 12/13/2021 Note: [...] for listed symptoms of Depression, and Chronic Ofam-Dcxskhudz-Ramxvv-Disorder, in order to report improved management of health management disfficulties and to report increased functional ability. 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 (Reinstated 11/25) [employer] glitch) Poor Satisfaction with Living Conditions 12/13/2021 Note: Problem 2: Problem Statement. Pt struggles with day-to-day living from significant life event and health condition changes which resulted in early care home from career work, placement in [employer] & [...] for listed symptoms of Depression, and Chronic Rbrh-Guogjqnik-Oncidz-Disorder, in order to report improved management of [...] individual only for 3x; Tx Order from It Risk Analyst/Psychiatrist to 1D/Wk Group Psychotherapy & 1Ind/@ 2wks 10/07. Pts next session was week of 10/17 and week of 10/24. Pt psychiatric re-evaluation was 10/28 with ON HOLD order for 30 days while she went to [place] to return with both of her aging parents ([place], [place]); her next psychiatric re-evaluation is scheduled [...] documented as of this encounter Care Teams Flight Communications Specialist Relationship Specialty Start Date End Date Ciera Duncan MD [address] [facility] [address] [place] [address] PCP - General Family Medicine 07/16/20 Gisela Ribera MD PhD [address] # [facility] [address] [place] [address] Radiation Oncologist Radiation Oncology 11/10/18 Rae Oviedo MD [address] [facility] [address] [facility] [address] [place] [address] Surgeon Surgical Oncology 12/12/18 Yolanda Brannon, TARA [address] [facility] [address] [place] [address] Nurse Practitioner Nurse Practitioner 08/05/20 Aquilino Potts Jr., MD [address] [facility] [address] [facility] [address] [place] [address] Consulting Physician Neurology 08/05/20 Linda Marcial, RN Registered Nurse Pulmonary Disease 09/06/22 Mirian Stratton MD Consulting Physician Cardiology 02/06/23 Roxanne Spring MD [address] [address] Referring Physician Pulmonary Disease 02/06/23 documented as of this encounter
--- OUTSIDE RECORDS SUMMARY | 2024-09-17 17:01 | XMS_ITS | Encounter Summary ---
Author Organization [facility] Address [address] [facility] [address] [place] [address] Phone Care Team Providers Care Franchise Business Consultant Name Role Phone Gisela Ribera MD PhD Unavailable Rae Oviedo MD Unavailable [phone] Ciera Duncan MD Primary Care Provider + Yolanda Brannon POLYMER TESTER Unavailable [phone] Delroy Noel MD, Aquilino Nguyen Unavailable + Linda Marcial RN Unavailable Maame Mirian East MD Unavailable Roxanne Spring MD Unavailable [phone] Reason for Referral * Diagnostic Imaging (Routine) - Authorized Specialty Diagnoses / Procedures Referred By Contac t Referred To Contact Diagnoses Abnormal mammogram of right breast Mass of right breast, unspecified quadrant Procedures US Breast Right Limited Franny Mark NP [address] [facility] [phone] [place] [address] Phone: tel: fax: [facility] (All Locations) Referral ID Status Reason Start Date Expiration Date V isits Requested Visits Authorized [id number] Authorized 09/17/2024 10/17/2025 1 1 * Diagnostic Imaging (Routine) - Authorized Specialty Diagnoses / Procedures Referred By Felicia duffy Referred To Contact Diagnoses Abnormal mammogram of right breast Mass of right breast, unspecified quadrant Procedures Diagnostic Mammogram Bilateral W Chaitanya Franny Mark NP [address] [facility] [phone] [place] [address] Phone: tel: fax: [facility] (All Locations) Referral ID Status Reason Start Date Expiration Date V isits Requested Visits Authorized [id number] Authorized 09/17/2024 10/17/2025 1 1 Encounter Details Date Type Department Care Team (Late st Contact Info) Description 09/17/2024 9:15 AM CDT Office Visit [facility] Surgery [address] [facility] Floor [address] [place] [phone] Franny Mark NP [address] [facility] [phone] [place] [address] Abnormal mammogram of right breast (Primary Dx); Mass of right breast, unspecified quadrant Social [...] on file Legal Sex Female 10:00 AM SERVICE PARTS COORDINATOR Gender Identity Female 06/21/2021 11:15 AM SERVICE PARTS COORDINATOR Sexual Orientation Straight 12/04/2018 12 :10 PM CDT documented as of this encounter Last Filed Vital Signs Vital Sign Reading Time Taken Comments Blood Pressure - - Pulse - - Temperature - - Respiratory Rate - - Oxygen Saturation - - Inhaled Oxygen Concentration - - Weight 106.1 kg (233 lb 12.8 oz) 09/17/2024 9:05 AM CDT Height 166.7 cm (5' 5.63 ) 09/17/2024 9:05 AM CD T Body Mass Index 38.16 09/17/2024 9:05 AM CDT documented in this encounter Plan of Treatment Scheduled Orders Name Type Priority Associated Diagnoses Orde r Schedule Diagnostic Mammogram Bilateral W Chaitanya Imaging Schedule Routine, Read Routine (OP Routine) Abnormal mammogram of right breast Mass of right breast, unspecified quadrant Expected: 03/20/2025 (Approximate), Expires: 03/20/2026 US Breast Right Limited Imaging Schedule Routine, Read Routine (OP Routine) Abnormal mammogram of right breast Mass of right breast, unspecified quadrant Expected: 03/20/2025 (Approximate), Expires: 09/17/2025 documented as of this encounter Goals Goal [...] practices. Care Plan Problem 1 (Reinstated 11/25) [employer] [employer]/[place] glitch) Problems with Health Conditions No Anabelle [...] decline). Care Plan Problem 2. (Reinstated 11/25) [facility]/[employer] [place] glitch) Poor Satisfaction with Living Conditions No Anabelle Tanner, JUMANA Note: New [...] for example) she is asking for a [place] present from a family member to complete the task. 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 This goal will support her to identify 3 ways in which she can improve the satisfaction level of her current living conditions (recall Pt lives alone in her own home, and Parents live relatively close in their own home). documented as of this encounter Visit Diagnoses Diagnosis Abnormal mammogram of right breast- Primary Mass of right breast, unspecified quadrant documented in this encounter Discontinued Medications Medication Sig Discontinue Reason Start Date End Da te chlorthalidone (HYGROTON) 25 mg tablet Take 1 tablet (25 mg total) by mouth daily Therapy completed 08/15/2024 09/17/2024 documented as of this encounter Additional Health Concerns Active Problems [...] for listed symptoms of Depression, and Chronic Mncj-Ykwsomsoa-Jtfaqz-Disorder, in order to report improved management of [...] health condition changes which resulted in early mcfp from career work, placement in [employer] & loss of work family support, loss [...] for listed symptoms of Depression, and Chronic Mapn-Eqemfirqx-Gkkpnf-Disorder, in order to report improved management of [...] individual only for 3x; Tx Order from Tactical Debriefer/Psychiatrist to 1D/Wk Group Psychotherapy & 1Ind/@ 2wks 10/07. Pts next session was week of 10/17 and week of 10/24. Pt psychiatric re-evaluation was 10/28 with ON HOLD order for 30 days while she went to [place] to return with both of her aging parents ([place], [place]); her next psychiatric re-evaluation is scheduled [...] documented as of this encounter Care Teams Franchise Business Consultant Relationship Specialty Start Date End Date Ciera Duncan MD [address] [place] [address] PCP - General Family Medicine 07/16/20 Gisela Ribera MD PhD [address] [place] [address] Radiation Oncologist Radiation Oncology 11/10/18 Rae Oviedo MD [address] [facility] [address] [place] [address] Surgeon Surgical Oncology 12/12/18 Yolanda Brannon, TARA [address] [place] [address] Nurse Practitioner Nurse Practitioner 08/05/20 Aquilino Potts Jr., MD [address] [place] [address] Consulting Physician Neurology 08/05/20 Linda Marcial, RN Registered Nurse Pulmonary Disease 09/06/22 Mirian Stratton MD Consulting Physician Cardiology 02/06/23 Roxanne Spring MD [address] [place] [address] Referring Physician Pulmonary Disease 02/06/23 documented as of this encounter
--- OUTSIDE RECORDS SUMMARY | 2024-09-17 17:01 | XMS_ITS | Encounter Summary ---
Author Organization [facility] Address [address] [place] [address] Phone Care Team Providers Care Hardboard Grinder Name Role Phone Gisela Ribera MD PhD Unavailable [phone] Rae Oviedo MD Unavailable [phone] Lenora Gallo MD Unavailable [phone] Jil Mazariegos DPT Unavailable Ciera Duncan MD Primary Care Provider + Patrizia Arriaga DPT Unavail able Yolanda Brannon ONCOLOGY PATIENT NAVIGATOR Unavailable [phone] Delroy Noel MD, Aquilino Nguyen Unavailable + Linda Marcial RN Unavailable Maame vailable Reason for Referral * Procedure (Routine) - Closed Specialty Diagnoses / Procedures Referred By Contac t Referred To Contact Diagnoses Mild persistent asthma without complication Procedures Pulmonary Function Test -[facility] Adult PFT Lab- [facility]; Spirometry, Oxygen Assessment Titration Roxanne Spring MD [address] [place] [address] Phone: tel: fax: Referral ID Status Reason Start Date Expiration Date Visits Re quested Visits Authorized [id number] Closed 01/01/2023 01/31/2024 1 1 Reason for Visit * Procedure (Routine) - Closed Specialty Diagnoses / Procedures Referred By Contac t Referred To Contact Diagnoses Mild persistent asthma without complication Procedures Pulmonary Function Test -[facility] Adult PFT Lab- [facility]; Spirometry, Oxygen Assessment Titration Roxanne Spring MD [address] [facility] [address] [place] [address] Phone: tel: fax: Referral ID Status Reason Start Date Expiration Date Visits Re quested Visits Authorized [id number] Closed 01/01/2023 01/31/2024 1 1 Encounter Details Date Type Department Care Team (Latest Contact Info) Description 01/16/2023 7:14 AM CDT Hospital Encounter [facility] PFT Lab [address] [facility] [address] [place] [phone] Mild persistent asthma without complication Social History [...] on file Legal Sex Female 10:00 AM LABORER SALVAGE Gender Identity Female 06/21/2021 11:15 AM LABORER SALVAGE Sexual Orientation Straight 12/04/2018 12 :10 PM CDT documented as of this encounter Functional Status * Audit-C Score Answer Date of Assessment Author 1 [...] on one occasion? Never 12/19/2023 8:50 AM CDT Joselyn Vale RN documented as of this [...] Satisfaction with Living Conditions No Anabelle Tanner, TALENT ACQUISITION MANAGER Note: New Extended Expected End Date 07/07/2022 [...] for example) she is asking for a [place] present from a family member to complete the task. 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 FVC %PRE PRED 69 % [facility] FEV1 PRE 1.81 L [facility] FEV1 %PRE PRED 70 % [facility] FEV1/FVC PRE 79.7 % [facility] Anatomical Region Laterality Modality PFT 01/16/2023 7:18 AM CDT Narrative 01/19/2023 1:36 PM CDT Table formatting from the original result was not included. [facility] Division of Pulmonary & Critical Care Medicine [address] [place] [address]; [address] [facility]; [place] [address]; [phone] Pulmonary Function Laboratory Pulmonary Stress Test Simple/Oxygen [...] Work [distance (m) x body wt (kg)]: 52724 kg.m (normal >60,000kg.m) Oxygen required to maintain [...] with the written final report. PFT performed at:->[facility] Adult PFT Lab- [facility] Procedure:->Spirometry Procedure:->Oxygen Assessment Titration us Roxanne Spring MD PFT ORDERABLES Final Result documented in this encounter Visit Diagnoses Diagnosis Mild persistent asthma without complication documented in this encounter Additional Health Concerns Active Problems Noted Date Diagnosed Date Problem 1 (Reinstated 11/25) [employer]/EMR glitch) Problems with Health Conditions 12/13/2021 Note: [...] for listed symptoms of Depression, and Chronic Lozn-Omhknuaav-Aazkmq-Disorder, in order to report improved management of [...] health condition changes which resulted in early mcc from career work, placement in [employer] & loss of work family support, loss [...] for listed symptoms of Depression, and Chronic Cswe-Jseoxibpw-Ihninm-Disorder, in order to report improved management of [...] individual only for 3x; Tx Order from Front End Software Developer/Psychiatrist to 1D/Wk Group Psychotherapy & 1Ind/@ 2wks 10/07. Pts next session was week of 10/17 and week of 10/24. Pt psychiatric re-evaluation was 10/28 with ON HOLD order for 30 days while she went to [place] to return with both of her aging parents ([place], [place]); her next psychiatric re-evaluation is scheduled [...] COVID: Suspected 09/07/2023 09/07/2023 09/07/2023 6:27 PM LABORER SALVAGE documented as of this encounter Care Teams Hardboard Grinder Relationship Specialty Start Date End Date Ciera Duncan MD [address] [facility] [address] [place] [address] PCP - General Family Medicine 07/16/20 Gisela Ribera MD PhD [address] [facility] [address] [place] [address] Radiation Oncologist Radiation Oncology 11/10/18 Rae Oviedo MD [address] [place] [address] Surgeon Surgical Oncology 12/12/18 Lenora Gallo MD [address] [place] [address] Medical Oncologist/Mining Detail Draftsperson Medical Oncology 01/07/19 02/05/23 Jil Mazariegos, TEGANT [address] [facility] [place] [address] [address] Physical Therapist Physical Therapy 05/21/20 02/05/23 Patrizia Arriaga DPT [address] [facility] [place] [address] [facility] [place] [address] Physical Therapist Physical Therapy 07/26/20 02/05/23 Yolanda Brannon, TARA [address] [facility] [place] [address] [facility] [place] [address] Nurse Practitioner Nurse Practitioner 08/05/20 Aquilino Potts Jr., MD [address] [facility] [place] [address] [address] Consulting Physician Neurology 08/05/20 Linda Marcial, SANDRA Registered Nurse Pulmonary Disease 09/06/22 documented as of this encounter
--- OUTSIDE RECORDS SUMMARY | 2024-09-17 17:01 | XMS_ITS ---
Author Organization [facility] Address [address] [place] [address] Care Team Providers Care Hide Dyer Name Role Phone Gisela Ribera MD PhD Unavailable Rae Oviedo MD Unavailable Ciera Duncan MD Primary Care Provider + Yoladna Brannon HEMSTITCHER Unavailable [phone] Delroy Noel MD, Aquilino Nguyen Unavailable + Linda Marcial RN Unavailable Maame Mirian East MD Unavailable [phone] Roxanne Spring MD Unavailable [phone] Active Problems Problem Noted Date Diagnosed Date Ataxia 02/01/2024 Abnormal MRI, breast 08/23/2023 Coronary artery disease invo lving [place] coronary artery of [place] heart with angina pectoris 07/31/2023 Agatston coronary artery calcium score between 2 00 and 399 07/31/2023 Hiatal hernia with GERD 07/04/2023 Dysphotopsia 06/14/2023 Assessment & Plan (06/14/2023 9:55 AM GIS SOFTWARE DEVELOPER): Monovision with OS set for near. Wants spectacle independence - best route is CTL or lasik for OS to be set for distance. S/P yag cap OU. Given diplopia with need for prism - will need MRx anyway. CTL trial for distance OS. Do not recommend surgery other than LASIK eval if she is doing well in CTL Incontinence of feces with fecal urgency 023 Esophageal dysphagia 05/14/2023 Dry eyes 02/14/2023 Bicuspid aortic valve 12/06/2022 Assessment & Plan (12/06/2022 12:04 PM CDT): CMR from 06/22 noted bicuspid AV with mild aortic stenosis. She is clinically stable with no heart failure symptoms. TTE every 3-5 years for monitoring. Nonobstructive atherosclerosis of coronary arter y 12/06/2022 Assessment & Plan (12/06/2022 12:05 PM CDT): PET/CT myocardial stress test showed mild microvascular dysfunction with reduced MFR and LHC 06/01/21: Mild non-obstructive coronary artery disease. Has post COVID symptoms of chest pain, palpitations and shortness of breath. Today patient reports that her symptoms have slightly improved. Continue medical therapy with ASA, Atorvastatin, bisoprolol and Imdur. Essential hypertension 12/06/2022 Assessment & Plan (12/06/2022 12:08 PM CDT): Recently elevated home blood pressure readings with up-titration of Bisoprolol to 10 mg daily. Blood pressure today well controlled. Reviewed home log that also noted improvement. Continue Bisoprolol 10 mg Daily. On Clonidine 0.2 mg nightly for non cardiac reasons. Continue periodically checking blood pressure and notify our clinic if consistently >130/>90. Hyperlipidemia 12/06/2022 Assessment & Plan (12/06/2022 12:09 PM CDT): Continue Atorvastatin 20 mg daily. Long COVID 12/06/2022 Assessment & Plan (12/06/2022 12:12 PM CDT): COVID-19 infection in December 2019 complicated by new onset hypertension, palpitations, shortness of breath, memory impairment. She has been treated with multiple therapies with minimal relief. Was encouraged to try clinical trial at last clinic visit and has put in application. Does report some improvement in her symptoms since her last clinic visit. Continue Bisoprolol and Imdur. Mixed obsessional thoughts and acts 05/24/2022 Major depressive disorder, recurrent episode, mi ld 11/25/2021 PLMD (periodic limb movement disorder) Assessment & Plan (10/24/2021 10:06 AM CDT): Patient continue with Neurontin 300 mg p.o. q.h.s.. Low iron 10/24/2021 Assessment & Plan (10/24/2021 10:05 AM CDT): Patient continues on iron supplement and is tolerating it well. Lung cyst 10/24/2021 Assessment & Plan (10/24/2021 10:06 AM CDT): The patient denies the want for a CT scan of the chest at this time. The patient is agreeable to a chest x-ray. This is will be completed prior to her next appointment. Morbid (severe) obesity due to excess calories 0 10/24/2021 BMI 40.0-44.9, adult 10/24/2021 Chronic posttraumatic stress disorder 09/09/2021 Mild persistent asthma without complication 06/02 Assessment & Plan (10/24/2021 10:06 AM CDT): Patient continue with her Trelegy one inhalation once a day. Patient continue with her nebulizer or inhaler. The patient was encouraged to increase the use of her inhaler she does feel short of breath. The patient continues with pulmonary rehab. Assessment & Plan (08/30/2021 1:55 PM GIS SOFTWARE DEVELOPER): Patient continue to use her Trelegy 1 inhalation once a day. Patient continue to use her albuterol inhaler as needed up to 4 times a day for shortness of breath. Pulmonary rehab if the shortness of breath is not related to a cardiac issue. Assessment & Plan (06/21/2021 3:04 PM GIS SOFTWARE DEVELOPER): Patient will continue with Trelegy 1 puff daily, Singulair 10 mg daily and Flonase. I will refer her to see Dr. Nova in [place] for skin testing and possible Dupixent injections. She will follow-up with me in 2 months. SOPHY (obstructive sleep apnea) 03/24/2021 Assessment & Plan (12/06/2022 12:15 PM CDT): Intermittently non compliant with her mask. Would like to follow with sleep medicine at [facility]. Referral placed. Assessment & Plan (10/24/2021 10:06 AM CDT): Patient continue to wear CPAP in auto titrating range of 13-20 cm water pressure while sleeping. Her DME is [employer]. Assessment & Plan (08/30/2021 1:55 PM GIS SOFTWARE DEVELOPER): Patient continue to wear her CPAP in auto titrating range of 13-20 cm water pressure while sleeping. Her DME is [employer]. Assessment & Plan (06/21/2021 3:05 PM GIS SOFTWARE DEVELOPER): Patient is compliant with the auto titrating CPAP unit with a range of 10-20 cm water pressure. Her AHI remains elevated. She she continues to wake up gasping at night. I will increase the auto titrating range of 13-20 cm water pressure. She would also like to look at a variety of CPAP mask. Her DME supplier is [employer]. Assessment & Plan (05/03/2021 2:05 PM CDT): She continues to benefit from the auto titrating CPAP unit with a range of 10-20 cm water pressure. Her DME supplier is [facility] [employer] [facility]. She will follow-up with me in 2 months. Assessment & Plan (03/24/2021 3:09 PM CDT): Due to the patient stating that she does not have enough pressure and an elevated AHI, I have increased her CPAP setting to 10-20 cm water pressure to treat obstructive sleep apnea. Patient denied need for supplies. DME company [employer]. Patient is benefitting from CPAP therapy. Pseudophakia of both eyes 01/11/2021 Assessment & Plan (01/11/2021 10:19 AM CDT): status post (s/p) CEIOL both eyes (OU) 03/[address] Cristian Otoole. Postop with glare/halos and increase bothersome of vitreous floaters. She is describing both positive and negative dysphotopsias OS ; relatively mild and will observe She is having issues dealing with the mono vision associated with her pseudophakia. One solution would be to get a pair of a reader is that her prescription that would help the right eye at near so that she has binocular near vision. She will discuss her refractive needs with her head transfer clerk Choroidal nevus of right eye 01/11/2021 Assessment & Plan (01/11/2021 10:07 AM CDT): Small, peripheral, flat Mild cognitive impairment 11/24/2020 Headache due to viral infection 11/02/2020 Assessment & Plan (11/24/2020 2:42 PM CDT): Advised trial of gabapentin 100 mg TID as this has been very helpful for a many patients with post-COVID headache syndromes. Discussed possible side effects. Reach out if no improvement after a few days. Next steps would be trial of Topamax. Pt is established w/ neuro. Tachycardia 09/02/2020 History of 2019 novel coronavirus disease (COVID -19) 07/16/2020 Assessment & Plan (03/24/2021 3:23 PM CDT): COVID-19 has resolved since last chest x-ray. The patient is still suffering from the residuals of COVID-19. Patient was diagnosed with mild cognitive impairment Assessment & Plan (01/25/2021 3:44 PM CDT): The patient has multiple residual since having COVID-19 in December of 2019, such as memory, fatigue, headache and balance issues. Shortness of breath 07/16/2020 Assessment & Plan (05/03/2021 2:04 PM CDT): The patient continues to have dyspnea on exertion. I will check an IgE level, CBC with differential to evaluate the eosinophil count and an ABG. I will also enroll or in the pulmonary rehab program and her cardiac evaluation is in progress. Assessment & Plan (03/24/2021 3:23 PM CDT): I have ordered the patient a methacholine challenge to evaluate dyspnea on exertion for asthma related component. The patient will continue Trelegy 1 puff daily and rinse mouth after use . The patient has an albuterol nebulizer or inhaler that she may use on a p.r.n. basis and up to 4 times a day as needed for symptom control. The patient will continue with Singulair and Flonase. The patient was instructed that if the methacholine challenge comes back positive we could enroll her into pulmonary rehab and if the methacholine challenge came back negative we would proceed with a cardiopulmonary exercise challenge. Assessment & Plan (01/25/2021 3:44 PM CDT): Due to the patient's complaint of shortness of breath and a normal PFT, I have ordered the patient a bronchial provocation challenge and a 6 minutes walk test and x-ray to evaluate breathing status and to determine if asthma symptoms are present. Chronic constipation with overflow 07/16/2020 Forgetfulness 07/16/2020 Other chest pain 07/16/2020 Weakness generalized 07/16/2020 Localized, primary osteoarthritis of hand 2019 Postviral fatigue syndrome 05/03/2020 Overview (05/03/2020): After COVID infection December 2019 Facet arthropathy, cervical 04/08/2020 Cervicalgia 03/16/2020 Parafoveal telangiectasia, type I, bilateral 03/2019 Assessment & Plan (05/08/2023 9:28 AM GIS SOFTWARE DEVELOPER): She has significant visual difficulty associated with distance intermediate and near vision. This is complicated by her diplopia for which she uses prisms. She is currently using 3 pairs of glasses but her acuity still suboptimal. I have recommended that she see a low television anchor at the [facility] low vision clinic. Discussed CNTF data Monovision OD for distance Assessment & Plan (01/11/2021 10:01 AM CDT): Stable exam and OCT Assessment & Plan (01/07/2019 10:04 AM CDT): No e/o CNV or CME Amsler grid and continue f/u with Dr Askew who can refer if worsening Vitreous syneresis of both eyes 01/07/2019 Assessment & Plan (01/11/2021 10:03 AM CDT): Worsening floater symptoms left eye (OS), stable exam OU Sensorineural hearing loss, bilateral 12/27/2018 Encounter for follow-up exam ination after completed treatment for malignant neoplasm 12/12/2018 History of breast cancer 12/12/2018 Personal history of irradiation 12/12/2018 Malignant neoplasm of centra l portion of right breast in female, estrogen receptor positive 10/21/2018 Cancer Staging:Clinical stage from 10/31/2018:Stage IA(cT1, cN0, cM0, G2, ER+, CO+, HER2-) - Signed by Gisela Ribera MD PhD on 11/10/2018 Pathologic:Stage IA(pT1b, pN0, cM0, G2, ER+, CO+, HER2-) - Signed by Gisela Ribera MD PhD on 11/10/2018 Breast cancer screening, high risk patient 08/30 Hiatal hernia 09/21/2017 Elbow pain 12/03/2014 Assessment & Plan (08/30/2021 1:54 PM GIS SOFTWARE DEVELOPER): I have ordered an iron and ferritin level. Current Treatment and Therapy Plans No current plan information found. Past Treatment and Therapy Plans No past plan information found. Radiation Treatments * Course C1 R BREAST 2019 11/22/2018 - 11/29/2018 Treatment Period Energy Fraction Dose Fractions Total Dose Plans Planned VR RT BRST 11/22/2018 - 11/29/2018 385 10 / 3,850 Reference Points Delivered RT BREAST 3850 11/22/2018 - 11/29/2018 3,850 Lifetime Dose Tracking * Chemical Lifetime Dose Automatic Entry Manual Entr y Fluoro Time 14.42 minutes 14.42 minutes 0 minutes Air kerma at the reference point (Ka,r) 1,093.2 mGy 2 29.2 mGy 864 mGy DLP 1,971 mGycm 1,971 mGycm 0 mGycm Resolved Problems Problem Noted Date Diagnosed Date Resolved Date Generalized anxiety disorder 05/24/2022 05/24/2022 Recurrent major depression i n partial remission 10/28/2021 11/25/2021 Snoring 01/25/2021 06/21/2021 Hypersomnia 01/25/2021 05/03/2021 Assessment & Plan (01/25/2021 3:45 PM CDT): Due to the patient's snoring and hypersomnia, I have recommended the patient complete a nocturnal polysomnogram with split night protocol no MSLT. The patient and I also discussed an in-home nocturnal polysomnogram as an option. Both procedures were detailed in depth. The patient is COVID-19 vaccinated. The patient is agreeable to follow through with the recommendation. Severe episode of recurrent major depressive disorder, without psychotic features 12/30/2020 COVID-19 09/29/2020 09/29/2020 Moderately severe depression 07/16/2020 10/07/2021 Moderate anxiety 07/16/2020 10/07/2021 [facility] current use of aromatase inhibitor 9 03/18/2019
--- OUTSIDE RECORDS SUMMARY | 2024-09-17 17:01 | XMS_ITS | Referral Summary ---
Author Organization [facility] Address [address] [place] [address] Care Team Providers Care Site Safety Coordinator Name Role Phone Gisela Ribera MD PhD Unavailable [phone] Rae Oviedo MD Unavailable Ciera Duncan MD Primary Care Provider + Yolanda Brannon BOBBIN DUMPER Unavailable [phone] Delroy Noel MD, Aquilino Nguyen Unavailable + Linda Marcial RN Unavailable Maame Mirian East MD Unavailable [phone] Roxanne Spring MD Unavailable Encounters Date Type Department Care Team Description 09/17/2024 9:15 AM CDT Office Visit [facility] [address] [place] [address] 8 [place] [address] Franny Mark NP Abnormal mammogram of right breast (Primary Dx); Mass of right breast, unspecified quadrant 09/17/2024 9:18 AM CDT Hospital Encounter [facility] - Breast Imaging [address] [place] [address] 8 [place] [address] Mass of right breast, unspecified quadrant; Breast pain 09/17/2024 9:20 AM CDT Hospital Encounter [facility] - Breast Imaging [address] [place] [address] 8 [place] [address] Mass of right breast, unspecified quadrant 08/21/2024 Orders Only [facility] Floor [address] [place] [address] Franny Mark NP Mass of right breast, unspecified quadrant (Primary Dx); Breast pain 08/21/2024 Telephone [facility] Floor 8 [place] [address] Rae Oviedo MD Medical Question/Miscellane ous 08/14/2024 Telephone [facility] [address] [facility] 8th [place] [address] [place] [address] Mirian Stratton MD 07/22/2024 Telephone [facility] Transplant Heart [address] [place] [address] [address] [id number] [place] [address] Ciera Bro 07/22/2024 11:00 AM FOOT CASTER Office Visit [facility] [address] [place] [address] 8 [place] [address] Lakisha Flowers NP Malignant neoplasm of central portion of right breast in female, estrogen receptor positive (HCC) (Primary Dx); History of breast cancer; History of partial mastectomy of right breast; Encounter for screening mammogram for malignant neoplasm of breast 07/22/2024 11:14 AM FOOT CASTER - 07/22/2024 11:59 PM FOOT CASTER Hospital Encounter [facility] - Breast Imaging [address] [place] [address] Floor 8 [place] [address] Encounter for follow-up examination after completed treatment for malignant neoplasm; Encounter for screening mammogram for malignant neoplasm of breast Discharge Disposition: Discharge to home or self care 07/08/2024 Documentation [facility] [address] [facility] 8th [place] [address] [place] [address] Roxanne Spring MD Test Results 07/08/2024 Telephone [facility] Heart [address] [place] [address] [address] [id number] [place] [address] Hoang Hicks RN 07/04/2024 9:00 AM FOOT CASTER - 07/04/2024 11:59 PM FOOT CASTER Hospital Encounter [facility] [address] [facility] [address] [place] [address] Long COVID Discharge Disposition: Discharge to home or self care from Last 3 Months Allergies Active Allergy Reactions Criticality Noted Date Comments Adhesive Rash Medium 09/27/2017 Erythromycin Hives,Rash Medium 05/01/2011 Hives Xnioraen-Frwvcwmsky-Uorw myxin Rash Medium 10/22/2018 Succinylcholine Other (See comments) Low 09/27/2017 Flu like symptoms - Made me miserable - couldn't hardly move for three days Muscle rigidity Plecanatide Diarrhea,Other (See comments),Stomach upset Low 06/13/2023 Causes explosive movements and impossibility to make it to the toilet. I also mess the bed. Vortioxetine Other (See comments) Low 08/30/2018 Flu like symptoms Medications mupirocin (BACTROBAN) 2 % ointmentIndicat ions:Minor Bacterial Skin Infections Apply 1 Application topically as needed 0 05/13/20 19 Active carboxymethyl/g ly/poly80/PF (REFRESH OPTIVE LASHONDA-3, PF, OPHT) Administer 1 Application into both eyes as needed 05/13/20 21 Active ALPRAZolam (XANAX) 0.25 mg tablet Take 1 tablet (0.25 mg total) by mouth nightly as needed for anxiety 06/15/20 21 Active fluticasone propionate (FLONASE) 50 mcg/actuation nasal spray Administer 2 sprays into each nostril daily 16 g 6 06/13/20 23 Active ascorbic acid-vitamin E-biotin (Hair, Skin, Nails with Biotin) 7.5-7.5-1,250 mg-unit-mcg tablet,chewable Take 1 tablet/chew tab by mouth every morning Crush medications for 2 weeks after surgery, after the 2 weeks may take whole pills 08/31/19 24 Active atorvastatin (LIPITOR) 20 mg tabletIndicatio ns:hyperlipidem ia Take 1 tablet (20 mg total) by mouth nightly Crush medications for 2 weeks after surgery, after the 2 weeks may take whole pills 08/31/19 Active cloNIDine (CATAPRES) 0.2 mg tabletIndicatio ns:Vasomotor Symptoms associated with Menopause,can't take hormones and this helps Take 1 tablet (0.2 mg total) by mouth nightly Crush medications for 2 weeks after surgery, after the 2 weeks may take whole pills 08/31/19 Active levothyroxine (SYNTHROID) 50 mcg tabletIndicatio ns:hypothyroidi sm Take 1 tablet (50 mcg total) by mouth business system consultant before breakfast Crush medications for 2 weeks after surgery, after the 2 weeks may take whole pills 08/31/19 Active montelukast (SINGULAIR) 10 mg tabletIndicatio ns:Maintenance Therapy for Asthma Take 1 tablet (10 mg total) by mouth nightly Crush medications for 2 weeks after surgery, after the 2 weeks may take whole pills 08/31/19 Active buPROPion XL (WELLBUTRIN XL) 300 mg 24 hr tabletIndicatio ns:Anxiety with Depression Take 1 tablet (300 mg total) by mouth every morning Medication not crushable , restart on 09/15 after you finish the crushable Wellbutrin 09/16/[address] (CYMBALTA) 60 mg capsuleIndicati ons:Anxiety with Depression,bradly r depressive disorder Take 1 capsule (60 mg total) by mouth every morning For 2 weeks after surgery, open capsule sprinkle medication in applesauce and take immediately, after the 2 weeks may take whole pills 08/31/19 Active Additional Information Patient taking differently:60 mg oral Every morning,(No instructions reported), Indications: Anxiety with Depression, major depressive disorder, Reported on 06/09/2024 aspirin 81 mg enteric coated tabletIndicatio ns:prevention of thrombosis,prim coral prevention Take 1 tablet (81 mg total) by mouth nightly Restart on 09/15 after you finish the crushable/chewab le Aspirin 09/16/19 Active ferrous sulfate (FeroSuL) 325 mg (65 mg of elemental iron) tablet Take 1 tablet (325 mg total) by mouth every morning Restart on 09/15 after you finish the liquid ferrous sulfate 09/16/19 Active albuterol HFA (PROVENTIL HFA,VENTOLIN HFA,PROAIR HFA) 90 mcg/actuation inhaler Inhale 2 puffs every 4 (four) hours as needed for wheezing 1 each 09/07/19 24 Active multivitamin tabletIndicatio ns:Vitamin Deficiency Prevention Take 1 tablet by mouth daily Active vitamin K2 40 mcg tablet Take by mouth daily Active traMADoL (ULTRAM) 50 mg tablet Take 1 tablet (50 mg total) by mouth 2 (two) times a day 11/27/19 24 Active amLODIPine (NORVASC) 10 mg tablet Take 1 tablet (10 mg total) by mouth daily 90 tablet 3 07/22/19 25 026 Active bisoprolol (ZEBETA) 10 mg tablet Take 1 tablet (10 mg total) by mouth daily Crush medications for 2 weeks after surgery, after the 2 weeks may take whole pills 90 tablet 3 07/22/19 25 026 Active isosorbide mononitrate ER (IMDUR) 120 mg 24 hr tabletIndicatio ns:prevention of anginal pain in coronary artery disease Take 1 tablet (120 mg total) by mouth nightly 90 tablet 3 07/22/19 25 026 Active chlorthalidone (HYGROTON) 25 mg tablet Take 1 tablet (25 mg total) by mouth daily 30 tablet 11 08/15/19 25 025 Discontin ued(Thera py completed ) Active Problems Problem Noted Date Diagnosed Date Ataxia 02/01/2024 Abnormal MRI, breast 08/23/2023 Coronary artery disease invo lving [place] coronary artery of [place] heart with angina pectoris 07/31/2023 Agatston coronary artery calcium score between 2 00 and 399 07/31/2023 Hiatal hernia with GERD 07/04/2023 Dysphotopsia 06/14/2023 Assessment & Plan (06/14/2023 9:55 AM FOOT CASTER): Monovision with OS set for near. Wants [...] rehab. Assessment & Plan (08/30/2021 1:55 PM FOOT CASTER): Patient continue to use her Trelegy 1 inhalation once a day. Patient continue to use her albuterol inhaler as needed up to 4 times a day for shortness of breath. Pulmonary rehab if the shortness of breath is not related to a cardiac issue. Assessment & Plan (06/21/2021 3:04 PM FOOT CASTER): Patient will continue with Trelegy 1 puff daily, Singulair 10 mg daily and Flonase. I will refer her to see Dr. Nova in [place] for skin testing and possible Dupixent injections. She will follow-up with me in 2 months. SOPHY (obstructive sleep apnea) 03/24/2021 Assessment & Plan (12/06/2022 12:15 PM CDT): Intermittently non compliant with her mask. Would like to follow with sleep medicine at [facility]. Referral placed. Assessment & Plan (10/24/2021 10:06 AM CDT): Patient continue to wear CPAP in auto titrating range of 13-20 cm water pressure while sleeping. Her DME is [facility]. Assessment & Plan (08/30/2021 1:55 PM FOOT CASTER): Patient continue to wear her CPAP in auto titrating range of 13-20 cm water pressure while sleeping. Her DME is [employer]. Assessment & Plan (06/21/2021 3:05 PM FOOT CASTER): Patient is compliant with the auto titrating [...] will discuss her refractive needs with her director energy Choroidal nevus of right eye 01/11/2021 Assessment [...] 03/2019 Assessment & Plan (05/08/2023 9:28 AM FOOT CASTER): She has significant visual difficulty associated with distance intermediate and near vision. This is complicated by her diplopia for which she uses prisms. She is currently using 3 pairs of glasses but her acuity still suboptimal. I have recommended that she see a low humanities division chair at the [facility] low vision clinic. Discussed [facility] data Monovision OD for distance Assessment & [...] from 10/31/2018:Stage IA(cT1, cN0, cM0, G2, ER+, CT+, HER2-) - Signed by Gisela Ribera MD PhD on 11/10/2018 Pathologic:Stage IA(pT1b, pN0, cM0, G2, ER+, CT+, HER2-) - Signed by Gisela Ribera MD PhD on 11/10/2018 Breast cancer screening, high risk patient 08/30 Hiatal hernia 09/21/2017 Elbow pain 12/03/2014 Assessment & Plan (08/30/2021 1:54 PM FOOT CASTER): I have ordered an iron and ferritin level. Resolved Problems Problem Noted Date Diagnosed Date [...] recurrent major depressive disorder, without psychotic features 12/30/20202 COVID-19 09/29/2020 09/29/2020 Moderately severe depression 07/16/2020 10/07/2021 Moderate anxiety 07/16/2020 10/07/2021 assisted current use of aromatase inhibitor 9 03/18/2019 Immunizations Immunization Administration Dates Next Due Hep A, Adult 09/18/2017 Influenza, Quadrivalent, Nael l Culture-based MDCK, Preservative Free, Antibiotic Free, Intramuscular 04/25/2021 Influenza, Quadrivalent, Rec ombinant, Egg Free, Preservative Free, Intramuscular 03/13/2019 Influenza, Quadrivalent, Spl it, Preservative Free, Intramuscular 03/29/2018 Influenza, Trivalent, Cell C ulture-based MDCK, Preservative Free, Antibiotic Free, Intramuscular 05/12/2024 Influenza, Trivalent, IM (MDV) 03/15/2013 Influenza, Trivalent, Preservative Free, Intramu scular 03/09/2016 Influenza, Unspecified 07/05/2023,02/28/2018 Moderna SARS-CoV-2 Monovalent Vaccination (12+ Y RS) 08/03/2020,07/06/2020 Pfizer Sars-Cov-2 Bivalent Vaccination (12+ YRS) 04/13/2022 Pneumococcal Polysaccharide PPV23 09/16/2020 Tdap 02/10/2021 ZOSTER Recombinant 09/26/2021,05/19/2021 Social History Tobacco Use Types Packs/Day Years Used Date Smoking Tobacco: Former Cigarettes 0.3 8 0 07/02/1990 - 07/02/1998 Smokeless Tobacco: Never Tobacco Cessation:Counseling Given: Not Answered Comments:Social smoker. Quit 1998 Alcohol Use Standard [...] on file Legal Sex Female 10:00 AM FOOT CASTER Gender Identity Female 06/21/2021 11:15 AM FOOT CASTER Sexual Orientation Straight 12/04/2018 12 :10 PM CDT Last Filed Vital Signs Vital Sign Reading Time Taken Comments Blood Pressure 148/90 05/12/2024 2:52 PM FOOT CASTER Pulse 77 05/12/2024 2:52 PM FOOT CASTER Temperature 36.2 C (97.1 F) 05/12/2024 2:52 PM FOOT CASTER Respiratory Rate 16 05/12/2024 2:52 PM FOOT CASTER Oxygen Saturation 98% 05/12/2024 2:52 PM FOOT CASTER Inhaled Oxygen Concentration - - Weight 106.1 kg (233 lb 12.8 oz) 09/17/2024 9:05 AM CDT Height 166.7 cm (5' 5.63 ) 09/17/2024 9:05 AM CD T Body Mass Index 38.16 09/17/2024 9:05 AM CDT Plan of Treatment Not on file Goals Goal Patient Goal Type Associated Problems [...] Care Plan Problem 1 (Reinstated 11/25) EPIC/EMR gl[place]ank) Problems with Health Conditions No Anabelle Tanner [...] decline). Care Plan Problem 2. (Reinstated 11/25) Curemark/EMR glidank) Poor Satisfaction with Living Conditions No Anabelle [...] task. 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 This goal will support her to identify 3 ways in which she can improve the satisfaction level of her current living conditions (recall Pt lives alone in her own home, and Parents live relatively close in their own home). Medical Devices Implanted Type Area Almond Blancher Device Identifier Shelf Expiration Date Model / Serial / Lot [employer] Angio-Seal Vip 6fr Closere Device [id number] - [id number] - [id number] Implanted:Qty: 1 on 08/13/2023 by Quincy Hoyos MD at [facility] Vascular Closure Device [id number] Enmanuel 05/01/2024 [id number] / [id number] / [id number] Rt Breast Biopsy Marker/Clip Implanted:08/30 (Quantity not on file) Right: Breast [employer] Trimark Mri Guided Rigid Deployment Device Cork Marker Breast Trimark Td 13-Mr - [id number] Implanted:Qty: 1 on 01/26/2023 at [facility] Right: Breast [employer] [id number] 02/28/2023 TRIMARK TD 13-MR / / [id number] Procedures Procedure Name Priority Date/Time Associated Diagnosis Comments US BREAST RIGHT LIMITED Schedule Routine, Read Routine (OP Routine) 09/17/2024 10:56 AM CDT Mass of right breast, unspecified quadrant DIAGNOSTIC MAMMOGRAM RIGHT W CHAITANYA Schedule Routine, Read Routine (OP Routine) 09/17/2024 10:09 AM CDT Mass of right breast, unspecified quadrant Breast pain SCREENING MAMMOGRAM BILATERAL W CHAITANYA Schedule Routine, Read Routine (OP Routine) 07/22/2024 12:26 PM FOOT CASTER Encounter for follow-up examination after completed treatment for malignant neoplasm Encounter for screening mammogram for malignant neoplasm of breast PULMONARY FUNCTION TEST (PFT) Routine 07/04/2024 10:47 AM FOOT CASTER Long COVID COLONOSCOPY 09/20/2020 11:07 AM CDT from Last 3 Months or Most Recently Relevant to Health Maintenance Results * US Breast Right Limited (09/17/2024 [...] RIGHT breast was performed by a trained concrete stone fabricating supervisor and by Leonel Cooley MD, Ph.D. BREAST [...] RIGHT breast was performed by a trained concrete stone fabricating supervisor and by Leonel Cooley MD, Ph.D. BREAST [...] signed by: Ulysses Frost MD Franny Mark BOBBIN DUMPER IMG MAMMO PROCEDURES Fi nal Result * Diagnostic Mammogram Right W Chaitanya (09/17/2024 [...] RIGHT breast was performed by a trained concrete stone fabricating supervisor and by Leonel Cooley MD, Ph.D. BREAST [...] RIGHT breast was performed by a trained concrete stone fabricating supervisor and by Leonel Cooley MD, Ph.D. BREAST [...] NP IMG MAMMO PROCEDURES Fi nal Result * Screening Mammogram Bilateral W Chaitanya (07/22/2024 12:26 PM FOOT CASTER) Anatomical Region Laterality Modality Breast Bilateral Mammography Narrative 07/23/2024 12:20 PM FOOT CASTER Mammogram Technique: Bilateral Digital Breast Tomosynthesis, Bilateral C-view 2D Screening mammogram. Views obtained: bilateral craniocaudal and bilateral mediolateral oblique. Computer Aided Detection was performed. Mammogram Findings: The present examination has been compared to prior imaging studies performed at [facility] on 11/25/2019, 07/10/2022 and 07/18/2023. There are scattered areas of fibroglandular density. There are post breast conservation therapy changes in the right breast. There is no suspicious abnormality in either breast. Impression: There is no mammographic evidence of malignancy. Annual screening mammography is recommended. OVERALL FINAL ASSESSMENT: BI-RADS CATEGORY 2: Benign. Procedure Note Rachel Slade MD - 07/23/2024 Mammogram Technique: Bilateral Digital Breast Tomosynthesis, Bilateral C-view 2D Screening mammogram. Views obtained: bilateral craniocaudal and bilateral mediolateral oblique. Computer Aided Detection was performed. Mammogram Findings: The present examination has been compared to prior imaging studies performed at [facility] on 11/25/2019, 07/10/2022 and 07/18/2023. There are scattered areas of fibroglandular density. There are post breast conservation therapy changes in the right breast. There is no suspicious abnormality in either breast. Impression: There is no mammographic evidence of malignancy. Annual screening mammography is recommended. OVERALL FINAL ASSESSMENT: BI-RADS CATEGORY 2: Benign. Elizabeth Kirby NP IMG MAMMO PROCEDURES Fin al Result * Pulmonary Function Test - (07/04/2024 10:47 AM FOOT CASTER) FVC PRE 2.58 L [facility] FVC %PRE PRED 80 % [facility] FVC POST 2.60 L [facility] FVC %POST PRED 80 % [facility] FEV1 PRE 2.11 L [facility] FEV1 %PRE PRED 83 % [facility] FEV1 POST 2.11 L [facility] FEV1 %POST PRED 83 % [facility] FEV1/FVC PRE 81.5 % [facility] FEV1/FVC POST 81.1 % [facility] FIO2 % 21.00 % [facility] PaO2 88.0 mmHg [facility] PaCO2 40.0 mmHg [facility] pH 7.46 [facility] A-aDO2 POC 12.0 mmHg [facility] METHGB % 0.2 % [facility] COHb POC 0.6 % [facility] HCO3 28.4 mEq/L [facility] Anatomical Region Laterality Modality PFT 07/04/2024 9:23 AM FOOT CASTER Narrative 07/04/2024 1:10 PM FOOT CASTER PFT performed at:->[facility] Adult PFT Lab- CAM-8D Procedure:->Pulmonary Stress Test - Complex Brief Clinical History and Reason for Exercise Study: dyspnea Study Results: The patient underwent a cardiopulmonary exercise study on a cycle ergometer with collection of gases. The workload was increased progressively at three-minute intervals until the patient stopped exercise due to leg fatgue. Peak exercise corresponded to a workload of 4.4 METS, and a VO2max of 91 % predicted. A. Ventilatory Responses: Minute ventilation (VE) at rest was mildly elevated at 16.3 L/min. The level of VE increase with incremental exercise was normal and peaked at 56 % of maximum voluntary ventilation (MVV). This corresponds with a breathing reserve (BR) of 44 % of predicted, which is normal (normal is greater than 20%) Tidal volume (Vt) and respiratory rate (RR) demonstrated a normal response to exercise. Estimated physiologic space (Vd/Vt) decreased normally from 0.26 to 0.22. Oxyhemoglobin saturation at rest was 96 % and 96 % at peak exercise. B. Cardiovascular Responses: Heart rate at rest was normal at 91 b/min. The magnitude of heart rate response to incremental exercise was normal and peaked at 83 % of predicted. Please note that motion artifact on ECG during testing did result in some HR values being reported as lower than actually observed. Systolic and diastolic blood pressure increased normally. The O2 pulse (VO2/HR) increased normally during the study peaking at 117 % predicted. The anaerobic threshold was achieved and occurred at 72 % predicted VO2max. Electrocardiographic monitoring demonstrated significant motion artifact but did not reveal any arrhytmias or ischemic changes. Interpretation: This is a normal exercise test with achievement of age, gender, and size predicted maximum. Anaerobic threshold was achieved with a visible plateau in Vo2max. Cardiac responses were normal with a symptomatic limitation around anaerobic threshold and normal chronotropic and stroke volume responses. At end of exercise there was an adequate breathing reserve suggesting no ventilatory limitation and a sufficient decrease in Vd/Vt and A-a gradient consistent with normal pulmonary vascular responses. If more conditioning is desired AT occurred around 130 BPM and exercise with only brief periods above this level would be best tolerated. us Roxanne Spring MD PFT ORDERABLES Final Result * COLONOSCOPY (09/20/2020 11:07 AM CDT) Anatomical Region Laterality Modality Other Narrative Procedure Note Ayden Andrade MD - 09/20/2020 11:07 AM CDT [facility] Patient Name: Jessica Zepeda Procedure Date: 09/20/2020 11:07 AM Date of : 1960 Admit Type: Outpatient Age: 60 Gender: Female Attending MD: Ayden Andrade M.D. Room: [facility] ENDOSCOPY ROOM 8 Note Status: Finalized Procedure: Colonoscopy Indications: Change in bowel habits, Weight loss Referring MD: KIARRA DowellTARA Providers: Ayden Andrade M.D., Sammy Crane M.D. Medicines: Monitored Anesthesia Care Complications: No immediate complications. Estimated Blood Loss: Estimated blood loss: none. Procedure: Pre-Anesthesia Assessment: - Prior to the procedure, a History and Physicalwas performed, and patient medications, allergies and sensitivities were reviewed. The patient'stolerance of previous anesthesia was reviewed. - Immediately prior to administration ofmedications, the patient was re-assessed for adequacy to receive sedatives. - The risks and benefits of the procedure and the sedation options and risks were discussed with the patient. All questions were answered and informed consent was obtained. The benefits, risks and alternatives of theprocedure and sedation were discussed and informed consentwas obtained. All questions were answered. Please referto the signed informed consent document in the medical record. The scope was passed under direct vision.The CF [id number] endoscope was introduced through the anus and advanced to the terminal ileum. The colonoscopy was performed without difficulty. The patient tolerated the procedure well. The qualityof the bowel preparation was evaluated using the BBPS ([place] Bowel Preparation Scale) with scores of:Right Colon = 3, Transverse Colon = 3 and Left Colon = 3 (entire mucosa seen well with no residual staining, small fragments of stool or opaque liquid). Thetotal BBPS score equals 9. The bowel preparation used was GoLYTELY via split dose instruction. The quality of the bowel preparation was good. Findings: The perianal and digital rectal examinations were normal. A 5 mm polyp was found in the rectum. The polyp was sessile. Thepolyp was removed with a cold snare. Resection and retrieval werecomplete. A single small-mouthed diverticulum was found in the sigmoid colon. The colon (entire examined portion) appeared normal. Biopsies for histology were taken with a cold forceps from the entire colon for evaluation of microscopic colitis. The terminal ileum appeared normal. Impression: - One 5 mm polyp in the rectum, removed with a cold snare. Resected and retrieved. - Diverticulosis in the sigmoid colon. - The entire examined colon is normal. Biopsied. - The examined portion of the ileum was normal. Recommendation: - Discharge patient to home. - Continue present medications. - Await pathology results. - Return to GI office as previously scheduled. - Repeat colonoscopy date to be determined after pending pathology results are reviewed for surveillance. Electronically signed by Ayden Andrade MD Ayden Andrade M.D. 09/20/2020 12:03:31 PM . Number of Addenda: 0 Note Initiated On: 09/20/2020 11:07 AM Recognized by the [place] for promoting quality in endoscopy Ayden Andrade MD ENDOSCOPY PROCEDURES Final Resu lt from Last 3 Months or Most Recently Relevant to Health Maintenance Additional Health Concerns Active Problems Noted Date [...] for listed symptoms of Depression, and Chronic Xxkw-Xuvxffidy-Xmqiec-Disorder, in order to report improved management of [...] early mcfp from career work, placement in [employer] & loss of work family support, loss [...] for listed symptoms of Depression, and Chronic Hcon-Gwjbapoyb-Tpbjhe-Disorder, in order to report improved management of [...] individual only for 3x; Tx Order from Assistant Passenger Locomotive Engineer/Psychiatrist to 1D/Wk Group Psychotherapy & 1Ind/@ 2wks 10/07. Pts next session was week of 10/17 and week of 10/24. Pt psychiatric re-evaluation was 10/28 with ON HOLD order for 30 days while she went to [place] to return with both of her aging parents ([place], [place]); her next psychiatric re-evaluation is scheduled [...] 11/03/2021 Due Date: 10/19/2021 Responsible User: Anabelle Tanner, [facility] Insurance CHOICE [place] MEDICARE [facility] [place] MEDICARE PHYSICIANS [employer] [place] MEDICARE [employer] CLAIMS OFFICE [employer]ICI[employer] [place] Advance Directives For more information, please contact: [phone] Documents on File Type Date Recorded Patient Dealer Accounts Investigator Expl anation ADVANCE DIRECTIVE 10/23/2018 7:19 PM POWER OF DOCTOR OF MEDICINE-MEDICAL * Full Code (Latest Code Status on File) Date Activated Date Inactivated Comments 08/30/2023 9:21 PM 09/02/2023 6:54 PM * Full Code Date Activated Date Inactivated Comments 08/13/2023 11:32 AM 08/13/2023 5:13 PM * Full Code Date Activated Date Inactivated Comments 05/15/2023 12:18 PM 05/15/2023 6:19 PM * Full Code Date Activated Date Inactivated Comments 09/20/2020 9:55 AM 09/20/2020 4:52 PM * Full Code Date Activated Date Inactivated Comments 10/21/2018 2:34 PM 10/22/2018 4:54 PM Care Teams Site Safety Coordinator Relationship Specialty Start Date End Date Ciera Duncan MD [address] [place] [address] PCP - General Family Medicine 07/16/20 Gisela Ribera MD PhD [address] LL [facility] [address] [place] [address] Radiation Oncologist Radiation Oncology 11/10/18 Rae Oviedo MD [address] [place] [address] Surgeon Surgical Oncology 12/12/18 Yolanda Brannon NP [address] [place] [address] Nurse Practitioner Nurse Practitioner 08/05/20 Aquilino Potts Jr., MD [address] LL [facility] [address] [place] [address] Consulting Physician Neurology 08/05/20 Linda Marcial, RN Registered Nurse Pulmonary Disease 09/06/22 Mirian Stratton MD Consulting Physician Cardiology 02/06/23 Roxanne Spring MD [address] [place] [address] Referring Physician Pulmonary Disease 02/06/23
--- OUTSIDE RECORDS SUMMARY | 2024-09-17 17:02 | XMS_ITS | Encounter Summary ---
Author Organization [facility] Healthcare Address [address] [place] [address] Care Team Providers Care Tool And Die Maker Name Role Phone Gisela Ribera MD PhD Unavailable [phone] Rae Oviedo MD Unavailable [phone] Lenora Gallo MD Unavailable [phone] Jil Mazariegos DPT Unavailable Ciera Duncan MD Primary Care Provider + Patrizia Arriaga DPT Unavail able Yolanda Brannon REELING AND TUBING MACHINE OPERATOR Unavailable Delroy Noel MD, Aquilino Nguyen Unavailable + Linda Marcial RN Unavailable Maame Mirian East MD Unavailable [phone] Roxanne Spring MD Unavailable Encounter Details Date Type Department Care Team (Late st Contact Info) Description 11/03/2022 Documentation [facility] [address] [place] [address] [place] [address] [address] [facility] [address] [place] [address] Social History Tobacco Use Types [...] staff should administer the PHQ-9) 4 07/28/2021 Comments No Sex and Gender Information Value Date Recorded Sex Assigned at Not on file Legal Sex Female 10:00 AM DATA SOFTWARE ENGINEER Gender Identity Female 06/21/2021 11:15 AM DATA SOFTWARE ENGINEER Sexual Orientation Straight 12/04/2018 12 :10 PM [...] EPIC/EMR glitch) Poor Satisfaction with Living Conditions Anabelle Montano, CUSTOMER CARE VOICE CONSULTANT Note: New Extended Expected End Date 07/07/2022 [...] for example) she is asking for a Hodges present from a family member to complete the task. 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 (Reinstated 11/25) Nerdies/Snappy shuttle glitch) Poor Satisfaction with Living Conditions 12/13/2021 Note: Problem 2: Problem Statement. 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 Pts next session was week of 10/17 and week of 10/24. Pt psychiatric re-evaluation was 10/28 with ON HOLD order for 30 days while she went to [place] to return with both of her aging parents ([place], [place]); her next psychiatric re-evaluation is scheduled [...] COVID: Suspected 09/07/2023 09/07/2023 09/07/2023 6:27 PM DATA SOFTWARE ENGINEER documented as of this encounter Care Teams Tool And Die Maker Relationship Specialty Start Date End Date Ciera Duncan MD [address] [facility] [address] [place] [address] PCP - General Family Medicine 07/16/20 Gisela Ribera MD PhD [address] [place] [address] Radiation Oncologist Radiation Oncology 11/10/18 Rae Oviedo MD [address] [place] [address] Surgeon Surgical Oncology 12/12/18 Lenora Gallo MD [address] [place] [address] Medical Oncologist/Foil Spinner Medical Oncology 01/07/19 02/05/23 Jil Mazariegos DPT [address] [facility] [address] [place] [address] Physical Therapist Physical Therapy 05/21/20 02/05/23 Patrizia Arriaga DPT [address] [facility] [address] [address] Physical Therapist Physical Therapy 07/26/20 02/05/23 Yolanda Brannon, REELING AND TUBING MACHINE OPERATOR [address] [facility] [address] [facility] [place], [place] [id number] Nurse Practitioner Nurse Practitioner 08/05/20 Aquilino Potts Jr., MD [address] [place] [id number] [address] Consulting Physician Neurology 08/05/20 Linda Marcial, SANDRA Registered Nurse Pulmonary Disease 09/06/22 Mirian Stratton MD Consulting Physician Cardiology 02/06/23 Roxanne Spring MD [address] [facility] [address] [place] [address] Referring Physician Pulmonary Disease 02/06/23 documented as of this encounter
--- OUTSIDE RECORDS SUMMARY | 2024-09-17 17:02 | XMS_ITS | Encounter Summary ---
Author Organization [facility] Address [address] [place] [address] Phone Care Team Providers Care Marble Setter Helper Name Role Phone Ciera Duncan MD Primary Care Provider + Mikel Noel MD, Rebel Unavailable + [phone] Gisela Ribera MD PhD Unavailable Rae Oviedo MD Unavailable [phone] Lenora Gallo MD Unavailable Jil Mazariegos DPT Unavailable Ciera Duncan MD Primary Care Provider + Anabelle Villegas OT Unavailable [phone] Patrizia Arriaga DPT Unavail able Yolanda Brannon PROTECTION CONSULTANT Unavailable [phone] Delroy Noel MD, Aquilino Nguyen Unavailable + Linda Marcial RN Unavailable Maame Mirian East MD Unavailable Roxanne Spring MD Unavailable Encounter Details Date Type Department Care Team (Late st Contact Info) Description 11/06/2018 Telephone [facility] Oncology [address] [facility] [place] [address] [place] [id number] Nichelle Garcia CMA Social History Tobacco Use Types Packs/Day Years Used Date Smoking Tobacco: Former Cigarettes 0.3 8 0 07/02/1990 - 07/02/1998 Smokeless Tobacco: Never Comments:smoked 2 packs a we ek for about 8 years Alcohol Use Standard Drinks/Week Comments Yes 0 (1 standard drink = 0.6 oz pur e alcohol) socially (maybe 2-3 a week) AUDIT-C Answer Date Recorded Frequency of Alcohol Consumption Monthly or less 10/15/2018 Average Number of Drinks Not on file 019 Frequency of Binge Drinking Never 09/30 Comments No Sex and Gender Information Value Date Recorded Sex Assigned at Not on file Legal Sex Female 10:00 AM BUSINESS OFFICE TECHNOLOGY INSTRUCTOR Gender Identity Female 06/21/2021 11:15 AM BUSINESS OFFICE TECHNOLOGY INSTRUCTOR Sexual Orientation Straight 12/04/2018 12 :10 PM CDT documented as of this encounter Plan of Treatment Not on file documented as of this encounter Visit Diagnoses Not on filedocumented in this encounter Additional Health Concerns Infection Onset Date Last Indicated Resolved Time COVID: Suspected 09/07/2023 09/07/2023 09/07/2023 6:27 PM BUSINESS OFFICE TECHNOLOGY INSTRUCTOR documented as of this encounter Care Teams Marble Setter Helper Relationship Specialty Start Date End Date Ciera Duncan MD PCP - General 08/16/17 07/13/20 Ciera Duncan MD PCP - General Family Medicine 07/16/20 Rebel Morin Jr., MD Medical Oncologist/Claims Clerk Medical Oncology 10/31/18 01/06/19 Gisela Ribera MD PhD [address] [facility] [address] LL LL [address] [place] [address] Radiation Oncologist Radiation Oncology 11/10/18 Rae Oviedo MD [address] [place] [address] Surgeon Surgical Oncology 12/12/18 Lenora Gallo MD [address] [place] [address] Medical Oncologist/Claims Clerk Medical Oncology 01/07/19 02/05/23 Jil Mazariegos, DPT [address] [facility] [address] [facility] [place] [address] Physical Therapist Physical Therapy 05/21/20 02/05/23 Anabelle Villegas OT [address] [facility] [address] [facility] [place] [address] Occupational Therapist Occupational Therapy 07/26/20 1 08/16/20 Patrizia Arriaga, TEGANT [address] [facility] [address] [place] [address] Physical Therapist Physical Therapy 07/26/20 02/05/23 Yolanda Brannon, TARA [address] [facility] [address] [place] [address] Nurse Practitioner Nurse Practitioner 08/05/20 Aquilino Potts Jr., MD [address] [facility] [address] [facility] [place] [address] Consulting Physician Neurology 08/05/20 Linda Marcial, RN Registered Nurse Pulmonary Disease 09/06/22 Mirian Stratton MD Consulting Physician Cardiology 02/06/23 Roxanne Spring MD [address] [facility] [address] [place] [address] Referring Physician Pulmonary Disease 02/06/23 documented as of this encounter
--- OUTSIDE RECORDS SUMMARY | 2024-09-17 17:02 | XMS_ITS | Continuity of Care Document ---
Author Organization [facility] Address [address] [place] [address] Phone Care Team Providers Care Cake Cutter Machine Name Role Phone Saida LOCK FACS, Jimmy [...] Diagnoses Date Provider Providers Copied on Encounter [facility], [address] [place] [address] [address], [place], [place], [id number], tel:[phone] [facility] No Information 2 Saida Marquez. [address] [place] [address] [email or web address], [address], [place], [address], . tel:[phone] Referring Provider: Roxanne Krmaer, [address] [facility] [address] [facility], [place], [address] . tel:[phone] [facility], [address], [place], [place], [address], tel:[phone] [place] [address] No Information 2 Saida Marquez. [address] [place] [address] [email or web address], [address], [place], [place], [address], . tel:[phone] Referring Provider: Roxanne Kramer, [address] [facility] [address], [place], [address] . tel:[phone] Office/outpa tient Visit, Est [facility], [address] [place] [address] [address], [place], [place], [address], [place] tel:[phone] SEC Maryellen Guerrero NP complete exam (chief complaint) PCO (posterior capsular opacification), bilateralBilatera l dry eyes 2 Saida Marquez. [address], [address], [place], [place], [address], [place]. tel:[phone] Akil Mccall MD.Referri ng Provider: Roxanne Kramer, [address] [place] [address] [address], [place], [address] . tel:[phone] [facility], [address] [place] [address] [address], [place], [place], [address], [place] tel:[phone] [facility] No Information 8 Kwabena Leos. [facility] , [address], [place], [place], [facility], [place]. tel:[phone] [facility], [address] [place] [address] [address], [place], [place], [address], [place] tel:[phone] [facility] No Information 2-200 7 Kwabena Leos. [address] [facility] , [address], [place], [place], [facility], [place]. tel:[phone] Referring Provider: Deric Aiken, [address] [address], [place], [place], [facility]. tel:[phone] [facility], [address] [place] [address] [address], [place], [place], [address], [place] tel:[phone] [facility] No Information 8-200 7 Kwabena Leos. [address] [facility] , [address], [place], [place], [facility], [place]. tel:[phone] Referring Provider: Ciera Duncan MD, [address] [place], [place], [facility]. tel:[phone] Family History Family Member Type Diagnosis Age At Onset Problem Family history of Glaucoma Problem Family history of Diabetes m ellitus Problem Family history of Retinal de tachment Payers Payer name Insurance type Covered alliance party ID Jacqueline bustillos(s) [employer] Out [place] [id number] Social History Type Description Quantity Date Captured Comments Sex Female Smoking Status No Information Chief Complaint And Reason For Visit No Information Reason For Referral Reason For Referral No Information Plan Of Treatment Date Type Action Status Goal Tobacco cessation counseling completed Patient Education Learning About YAG Lase r Capsulotomy completed History Of Present Illness Encounter Date Complaint History Of Prese nt Illness PLATFORM MAN complete exam The 61 year old patient presents for evaluation of PLATFORM MAN complete exam in the right eye and [...]
--- OUTSIDE RECORDS SUMMARY | 2024-09-17 17:02 | XMS_ITS | Encounter Summary ---
Author Organization [facility] Healthcare Address [address] [place] [address] Care Team Providers Care Software Solutions Architect Name Role Phone Ciera Duncan MD Primary Care Provider + Gisela Ribera MD PhD Unavailable [phone] Rae Oviedo MD Unavailable [phone] Lenora Gallo MD Unavailable + [phone] Jil Mazariegos DPT Unavailable Ciera Duncan MD Primary Care Provider + Anabelle Villegas OT Unavailable [phone] Patrizia Arriaga DPT Unavail able Yolanda Brannon FARMHAND Unavailable [phone] Delroy Noel MD, Steven Richard Unavailable + Linda Marcial RN Unavailable Maame Mirian East MD Unavailable [phone] Roxanne Spring MD Unavailable [phone] Encounter Details Date Type Department Care Team (Late st Contact Info) Description 01/09/2019 Telephone [facility] Radiation Oncology at [facility] [address] [place] [address] Amee Patterson MA Social History Tobacco Use Types Packs/Day Years [...] on file Legal Sex Female 10:00 AM ASSEMBLY LINE SUPERVISOR Gender Identity Female 06/21/2021 11:15 AM ASSEMBLY LINE SUPERVISOR Sexual Orientation Straight 12/04/2018 12 :10 PM CDT documented as of this encounter Plan of Treatment Not on file documented as of this encounter Visit Diagnoses Not on filedocumented in this encounter Additional Health Concerns Infection Onset Date Last Indicated Resolved Time COVID: Suspected 09/07/2023 09/07/2023 09/07/2023 6:27 PM ASSEMBLY LINE SUPERVISOR documented as of this encounter Care Teams Software Solutions Architect Relationship Specialty Start Date End Date Ciera Duncan MD PCP - General 08/16/17 07/13/20 Ciera Duncan MD PCP - General Family Medicine 07/16/20 Gisela Ribera MD PhD [address] [place] [address] Radiation Oncologist Radiation Oncology 11/10/18 Rae Oviedo MD [address] [place] [address] Surgeon Surgical Oncology 12/12/18 Lenora Gallo MD [address] [facility] [address] [place] [address] Medical Oncologist/Transportation Associate Medical Oncology 01/07/19 02/05/23 Jil Mazariegos, DPT [address] [facility] [address] [address] Physical Therapist Physical Therapy 05/21/20 02/05/23 Anabelle Villegas OT [address] [facility] [address] [address] Occupational Therapist Occupational Therapy 07/26/20 1 08/16/20 Patrizia Arriaga, DPT [address] [facility] [address] [address] Physical Therapist Physical Therapy 07/26/20 02/05/23 Yolanda Brannon, TARA [address] [facility] [address] [address] Nurse Practitioner Nurse Practitioner 08/05/20 Aquilino Potts Jr., MD [address] [facility] [address] [address] Consulting Physician Neurology 08/05/20 Linda Marcial, SANDRA Registered Nurse Pulmonary Disease 09/06/22 Mirian Stratton MD Consulting Physician Cardiology 02/06/23 Roxanne Spring MD [address] [facility] [address] [place] [address] Referring Physician Pulmonary Disease 02/06/23 documented as of this encounter
--- OUTSIDE RECORDS SUMMARY | 2024-09-17 17:02 | XMS_ITS | Encounter Summary ---
Author Organization [facility] Healthcare Address [address] [place] [address] Care Team Providers Care Kiln Remover Name Role Phone Ciera Duncan MD Primary Care Provider + Gisela Ribera MD PhD Unavailable [phone] Rae Oviedo MD Unavailable [phone] Lenora Gallo MD Unavailable + [phone] Jil Mazariegos DPT Unavailable Ciera Duncan MD Primary Care Provider + Anabelle Villegas OT Unavailable [phone] Patrizia Arriaga DPT Unavail able Yolanda Brannon CABLE SPLICING TECHNICIAN Unavailable [phone] Delroy Noel MD, Steven Richard Unavailable + Linda Marcial RN Unavailable Maame Mirian East MD Unavailable [phone] Roxanne Spring MD Unavailable [phone] Reason for Visit * Reason Onset Date Comments Pre-Surgical Call 04/12/2020 Encounter Details Date Type Department Care Team (Late st Contact Info) Description 04/12/2020 Telephone [facility] [address] [facility] [address] [place] [address] Lety Worrell MD PhD [address] [place] [address] Pre-Surgical Call Social History Tobacco Use Types Packs/Day Years Used Date Smoking Tobacco: Former Cigarettes 0.3 8 0 07/02/1990 - 07/02/1998 Smokeless Tobacco: Never Comments:smoked 2 packs a we ek for about 8 years Alcohol Use Standard Drinks/Week Comments Yes 0 (1 standard drink = 0.6 oz pur e alcohol) 4 drinks a year AUDIT-C Answer Date Recorded Frequency of Alcohol Consumption Monthly or less 10/15/2018 Average Number of Drinks Not on file 019 Frequency of Binge Drinking Never 09/30 Comments No Sex and Gender Information Value Date Recorded Sex Assigned at Not on file Legal Sex Female 10:00 AM EFFICIENCY MANAGER Gender Identity Female 06/21/2021 11:15 AM EFFICIENCY MANAGER Sexual Orientation Straight 12/04/2018 12 :10 PM CDT documented as of this encounter Plan of Treatment Not on file documented as of this encounter Goals Goal Patient Goal Type Associated Problems Recent Progress Patient-Stated? Author CCM Chronic Pain Care Plan Chronic Care Management No change(03/07 11:13 AM CDT) No Suzan Isabel, RN Note: Problem: Chronic Pain Goals: 1. Minimize further functional decline 2. Maximize quality of life 3. Control pain Strategies: - Activity/exercise program recommendation - Conservative stepwise pain medicine strategy with multi-disciplinary approach - Recommend healthy lifestyle strategies and compensatory methods as needed documented as of this encounter Visit Diagnoses Not on filedocumented in this encounter Additional Health Concerns Infection Onset Date Last Indicated Resolved Time COVID: Suspected 09/07/2023 09/07/2023 09/07/2023 6:27 PM EFFICIENCY MANAGER documented as of this encounter Care Teams Kiln Remover Relationship Specialty Start Date End Date Ciera Duncan MD PCP - General 08/16/17 07/13/20 Ciera Duncan MD PCP - General Family Medicine 07/16/20 Gisela Ribera MD PhD [address] [place] [address] Radiation Oncologist Radiation Oncology 11/10/18 Rae Oviedo MD [address] [place] [address] Surgeon Surgical Oncology 12/12/18 Lenora Gallo MD [address] [place] [address] Medical Oncologist/Clinical Dental Technician Medical Oncology 01/07/19 02/05/23 Jil Mazariegos, DPT [address] [place] [facility] [place] [address] Physical Therapist Physical Therapy 05/21/20 02/05/23 Anabelle Villegas OT [address] [place] [place] [address] Occupational Therapist Occupational Therapy 07/26/20 1 08/16/20 Patrizia Arriaga, DPT [address] [place] [place] [address] Physical Therapist Physical Therapy 07/26/20 02/05/23 Yolanda Brannon, CABLE SPLICING TECHNICIAN [address] [place] [address] [facility] [place] [address] Nurse Practitioner Nurse Practitioner 08/05/20 Auqilino Potts Jr., MD [address] [facility] [address] [place] [address] Consulting Physician Neurology 08/05/20 Linda Marcial, SANDRA Registered Nurse Pulmonary Disease 09/06/22 Mirian Stratton MD Consulting Physician Cardiology 02/06/23 Roxanne Spring MD [address] [facility] [address] [place] [address] Referring Physician Pulmonary Disease 02/06/23 documented as of this encounter
--- OUTSIDE RECORDS SUMMARY | 2024-09-17 17:02 | XMS_ITS | Encounter Summary ---
Author Organization [facility] Address [address] [place] [address] Phone Care Team Providers Care Automotive Internet Sales Manager Name Role Phone Gisela Ribera MD PhD Unavailable [phone] Rae Oviedo MD Unavailable [phone] Ciera Duncan MD Primary Care Provider + Yolanda Brannon BLASTING GANG MINER Unavailable [phone] Delroy Noel MD, Aquilino Nguyen Unavailable + Linda Marcial RN Unavailable Maame Mirian East MD Unavailable [phone] Roxanne Spring MD Unavailable [phone] Encounter Details Date Type Department Care Team (Latest Contact Info) Description 10/18/2023 Orders Only [facility] Scanning, Provider Social History Tobacco Use Types Packs/Day Years Used Date Smoking Tobacco: Former Cigarettes 0.3 8 0 07/02/1990 - 07/02/1998 Smokeless Tobacco: Never Comments:Social smoker. Quit 1998 Alcohol Use Standard Drinks/Week Comments Yes 0 (1 standard drink = 0.6 oz pur e alcohol) 4 drinks a year AUDIT-C Answer Date Recorded Q1: How often do you have a drink containing alcohol? Never 08/30/2023 Q2: How many drinks containi ng alcohol do you have on a typical day when you are drinking? Patient does not drink 4 Q3: How often do you have si x or more drinks on one occasion? Never 08/30/2023 PHQ-2 Answer Date Recorded PHQ-2 Total Score [...] making you feel afraid or unsafe? 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 (Reinstated 11/25) EPIC/EMR edinson) Poor Satisfaction with Living Conditions 12/13/2021 Note: Problem 2: Problem Statement. Pt struggles with day-to-day living from significant life event and health condition changes which resulted in early correction from career work, placement in [employer] & [...] for listed symptoms of Depression, and Chronic Goho-Jjaocajgf-Hzkjwr-Disorder, in order to report improved management of [...] individual only for 3x; Tx Order from Receivable Manager/Psychiatrist to 1D/Wk Group Psychotherapy & 1Ind/@ 2wks 10/07. Pts next session was week of 10/17 and week of 10/24. Pt psychiatric re-evaluation was 10/28 with ON HOLD order for 30 days while she went to [place] to return with both of her aging parents ([place], [place]); her next psychiatric re-evaluation is scheduled [...] documented as of this encounter Care Teams Automotive Internet Sales Manager Relationship Specialty Start Date End Date Ciera Duncan MD [address] [place] [address] PCP - General Family Medicine 07/16/20 Gisela Ribera MD PhD [address] [place] [address] Radiation Oncologist Radiation Oncology 11/10/18 Rae Oviedo MD [address] [place] [address] Surgeon Surgical Oncology 12/12/18 Yolanda Brannon NP [address] [place] [address] Nurse Practitioner Nurse Practitioner 08/05/20 Aquilino Potts Jr., MD [address] [facility] [address] [place] [address] Consulting Physician Neurology 08/05/20 Linda Marcial, RN Registered Nurse Pulmonary Disease 09/06/22 iMrian Stratton MD Consulting Physician Cardiology 02/06/23 Roxanne Spring MD [address] [place] [address] Referring Physician Pulmonary Disease 02/06/23 documented as of this encounter
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
--- OUTSIDE RECORDS SUMMARY | 2024-09-17 17:02 | XMS_ITS | Encounter Summary ---
Author Organization [facility] Address [address] [place] [address] Phone Care Team Providers Care Guillotine Trimmer Name Role Phone Ciera Duncan MD Primary Care Provider + Gisela Ribera MD PhD Unavailable [phone] Rae Oviedo MD Unavailable [phone] Lenora Gallo MD Unavailable [phone] Jil Mazariegos DPT Unavailable Ciera Duncan MD Primary Care Provider + Anabelle Villegas OT Unavailable [phone] Patrizia Arriaga DPT Unavail able Yolanda Brannon BIBLE TEACHER Unavailable [phone] Delroy Noel MD, Aquilino Nguyen Unavailable + Linda Marcial RN Unavailable Maame Mirian East MD Unavailable Roxanne Spring MD Unavailable [phone] Encounter Details Date Type Department Care Team (Latest Contact Info) Description 06/10/2020 Orders Only [facility] ED Scanning, Provider Social History Tobacco Use Types [...] on file Legal Sex Female 10:00 AM INFORMATION CODER Gender Identity Female 06/21/2021 11:15 AM INFORMATION CODER Sexual Orientation Straight 12/04/2018 12 :10 PM [...] as needed documented as of this encounter Procedures Procedure Name Priority Date/Time Associated Diagnosis Comments SCAN - RADIOLOGY/IMAGING 06/10/2020 documented in this encounter Results * SCAN - RADIOLOGY/IMAGING (06/10/2020) Anatomical Region Laterality Modality Other us Provider Scanning Final Result documented in this encounter Visit Diagnoses Not on filedocumented in this encounter Additional Health Concerns Infection Onset Date Last Indicated Resolved Time COVID: Suspected 09/07/2023 09/07/2023 09/07/2023 6:27 PM INFORMATION CODER documented as of this encounter Care Teams Guillotine Trimmer Relationship Specialty Start Date End Date Ciera Duncan MD PCP - General 08/16/17 07/13/20 Ciera Duncan MD PCP - General Family Medicine 07/16/20 Gisela Ribera MD PhD [address] [place] [address] Radiation Oncologist Radiation Oncology 11/10/18 Rae Oviedo MD [address] [place] [address] Surgeon Surgical Oncology 12/12/18 Lenora Gallo MD [address] [place] [address] Medical Oncologist/Boat Dock Operator Medical Oncology 01/07/19 02/05/23 Jil Mazariegos, DPT [address] [facility] [place] [address] Physical Therapist Physical Therapy 05/21/20 02/05/23 Anabelle Villegas OT [address] [place] [facility] [place] [address] Occupational Therapist Occupational Therapy 07/26/20 1 08/16/20 Patrizia Arriaga, DPT [address] [place] [address] Physical Therapist Physical Therapy 07/26/20 02/05/23 Yolanda Brannon, TARA [address] [place] [facility] [place] [address] Nurse Practitioner Nurse Practitioner 08/05/20 Aquilino Potts Jr., MD [address] [facility] [address] [place] [address] Consulting Physician Neurology 08/05/20 Linda Marcial, SANDRA Registered Nurse Pulmonary Disease 09/06/22 Mirian Stratton MD Consulting Physician Cardiology 02/06/23 Roxanne Spring MD [address] [facility] [address] [place] [address] Referring Physician Pulmonary Disease 02/06/23 documented as of this encounter
--- OUTSIDE RECORDS SUMMARY | 2024-09-17 17:02 | XMS_ITS | Encounter Summary ---
Author Organization [facility] Address [address] [place] [address] Phone Care Team Providers Care Heater Operator Helper Name Role Phone Gisela Ribera MD PhD Unavailable [phone] Rae Oviedo MD Unavailable [phone] Ciera Duncan MD Primary Care Provider + Yolanda Brannon DONOR RECRUITER Unavailable [phone] Delroy Noel MD, Aquilino Nguyen Unavailable + Linda Marcial RN Unavailable Maame Mirian East MD Unavailable [phone] Roxanne Spring MD Unavailable [phone] Encounter Details Date Type Department Care Team (Latest Contact Info) Description 09/14/2023 Orders Only [facility] PULMONARY Scanning, Provider [...] on file Legal Sex Female 10:00 AM ENRICHMENT ASSISTANT Gender Identity Female 06/21/2021 11:15 AM ENRICHMENT ASSISTANT Sexual Orientation Straight 12/04/2018 12 :10 PM [...] Satisfaction with Living Conditions No Anabelle Tanner, VP OF DIGITAL MARKETING Note: New Extended Expected End Date 07/07/2022 [...] for example) she is asking for a [place] present from a family member [...] conditions in which 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 (second only to her brother and [...] Name Priority Date/Time Associated Diagnosis Comments PULMONARY - RESULT SCAN 09/20/2023 documented in this encounter Results * PULMONARY - RESULT SCAN (09/20/2023) Anatomical Region Laterality Modality Other us Provider Scanning Edited Result - Final documented in this encounter Visit Diagnoses Not [...] for listed symptoms of Depression, and Chronic Rydg-Lqymfisqq-Vcquuw-Disorder, in order to report improved management of [...] health condition changes which resulted in early prison from career work, placement in [employer] & [...] for listed symptoms of Depression, and Chronic Wsnc-Ejxbhgqou-Vxuzyc-Disorder, in order to report improved management of [...] individual only for 3x; Tx Order from Audio Visual Arts Director/Psychiatrist to 1D/Wk Group Psychotherapy & 1Ind/@ 2wks 10/07. Pts next session was week of 10/17 and week of 10/24. Pt psychiatric re-evaluation was 10/28 with ON HOLD order for 30 days while she went to [place] to return with both of her aging parents ([place], [place]); her next psychiatric re-evaluation is scheduled [...] documented as of this encounter Care Teams Heater Operator Helper Relationship Specialty Start Date End Date Ciera Duncan MD [address] [place] [address] PCP - General Family Medicine 07/16/20 Gisela Ribera MD PhD [address] [place] [address] Radiation Oncologist Radiation Oncology 11/10/18 Rae Oviedo MD [address] [place] [address] Surgeon Surgical Oncology 12/12/18 Yolanda Brannon NP [address] [place] [address] Nurse Practitioner Nurse Practitioner 08/05/20 Aquilino Potts Jr., MD [address] [facility] [address] [place] [address] Consulting Physician Neurology 08/05/20 Linda Marcial, RN Registered Nurse Pulmonary Disease 09/06/22 Mirian Stratton MD Consulting Physician Cardiology 02/06/23 Roxanne Spring MD [address] [place] [address] Referring Physician Pulmonary Disease 02/06/23 documented as of this encounter
--- OUTSIDE RECORDS SUMMARY | 2024-09-17 17:02 | XMS_ITS | Clinical Summary ---
Author Organization [facility] Address [address] [place] [address] Care Team Providers Care Propeller Layout Worker Name Role Phone None, Provider MD Primary Care Provider Unavaila ble Allergies Active Allergy Reactions Criticality Noted Date Comments Erythromycin Hives,Rash Medium 05/01/2011 Reaction: HIVES Neomycin-Bacitracin Zn-Polymyx Other (see comment) Medium 10/22/2018 Pt. Has allergy Succinylcholine Other (see comment) Low 09/27/2017 Flu like symptoms - Made me miserable - couldn't hardly move for three days Muscle rigidity Tape Rash Low 09/27/2017 Reaction: BLISTERS, Vortioxetine Other (see comment) Low 08/30/2018 Flu like symptoms Medications venlafaxine (EFFEXOR) 37.5 MG tablet Take 1 tablet (37.5 mg total) by mouth daily. Active atorvastatin 20 MG tablet Take 1 tablet (20 mg total) by mouth nightly at bedtime. Active cloNIDine 0.2 MG tablet Take 1 tablet (0.2 mg total) by mouth nightly. Active traZODone 50 MG tablet Take 1 tablet (50 mg total) by mouth nightly at bedtime. Active fluticasone propionate 50 MCG/ACT nasal spray 50 sprays. 9 Active ALPRAZolam 0.25 MG tablet Take 1 tablet (0.25 mg total) by mouth 3 (three) times daily as needed. Active aspirin EC (ECOTRIN) 81 MG tablet Take 1 tablet (81 mg total) by mouth daily. Active albuterol sulfate HFA 108 (90 Base) MCG/ACT inhaler Inhale 2 puffs into the lungs every 4 (four) hours as needed for Wheezing or Shortness of breath. Active Biotin w/ Vitamins C & E (HAIR SKIN & NAILS GUMMIES) 1250-7.5-7.5 MCG-MG-UNT Chew Tab Chew 1 tablet by mouth daily. 4 Active bisoprolol (ZEBETA) 10 MG tablet Take 1 tablet (10 mg total) by mouth daily. Active buPROPion (WELLBUTRIN) 100 MG tablet Take 1 tablet (100 mg total) by mouth daily. 4 Active cholecalciferol (VITAMIN D-[address]) 25 mcg Tab tablet Take 2 tablets (2,000 Units total) by mouth daily. 4 Active DULoxetine (CYMBALTA) 60 MG capsule Take 1 capsule (60 mg total) by mouth daily. Active ferrous sulfate, 65 mg elemental, 325 (65 FE) MG tablet Take 1 tablet (325 mg total) by mouth daily. 4 Active gabapentin (NEURONTIN) 300 MG capsule Take 1 capsule (300 mg total) by mouth 2 (two) times daily. Active isosorbide mononitrate ER (IMDUR) 30 MG 24 hr tablet Take 1 tablet (30 mg total) by mouth daily. 4 Active latanoprost (XALATAN) 0.005 % ophthalmic solution Place 1 drop into both eyes nightly at bedtime. Active levothyroxine (SYNTHROID) 50 MCG tablet Take 1 tablet (50 mcg total) by mouth daily. Active Menaquinone-7 40 MCG Tab Take 1 tablet by mouth daily. Active montelukast (SINGULAIR) 10 MG tablet Take 1 tablet (10 mg total) by mouth nightly at bedtime. Active Multiple Vitamin (MULTI-VITAMIN) tablet Take 1 tablet by mouth daily. Active nitroglycerin (NITROSTAT) 0.[address] 1 tablet (0.4 mg total) under the tongue every 5 (five) minutes as needed. Active traMADol (ULTRAM) 50 MG tablet Take 1 tablet (50 mg total) by mouth 2 (two) times daily. 4 Active furosemide (LASIX) 20 MG tablet Take 1 tablet (20 mg total) by mouth daily as needed. 08/31/19 25 Active Problems Problem Noted Date Diagnosed Date Right knee pain 12/18/2023 Social History Tobacco Use Types Packs/Day Years Used Date Smoking Tobacco: Former Cigarettes Smokeless Tobacco: Never Tobacco Cessation:Counseling Given: Not Answered Alcohol Use Standard Drinks/Week Comments Yes 0 (1 standard drink = 0.6 oz pur e alcohol) occasionally AUDIT-C Answer Date Recorded Q1: How often do you have a drink containing alc ohol? Never 01/25/2020 Average Number of Drinks Not on file 020 Frequency of Binge Drinking Not on file 12/31 Comments No Sex and Gender Information Value Date Recorded Sex Assigned at Not on file Legal Sex Female 8:02 PM CDT Gender Identity Not on file Sexual Orientation Not on file Last Filed Vital Signs Vital Sign Reading Time Taken Comments Blood Pressure 122/60 01/19/2024 1:30 AM CDT Pulse 65 01/19/2024 1:30 AM CDT Temperature 36.6 C (97.8 F) 01/19/2024 12:36 AM CDT Respiratory Rate 20 01/19/2024 12:36 AM CDT Oxygen Saturation 97% 01/19/2024 1:30 AM CDT Inhaled Oxygen Concentration - - Weight 106.6 kg (235 lb) 01/19/2024 12:36 AM CDT Height 167.6 cm (5' 6 ) 01/19/2024 12:36 AM CDT Body Mass Index 37.93 01/19/2024 12:36 AM CDT Plan of Treatment Health Maintenance Due Date Last Done Comments Cervical Cancer Screening Pap Smear (Age 30 to 64) Every 3 Years 1962 Colorectal Cancer Screening Colonoscopy (10 Years) 1962 Annual Physical 1965 Hepatitis C 1980 Cervical Cancer Screening Pap with HPV Testing (Age 30 to 64) Every 5 Years 1992 Cervical Cancer Screening with HPV 1992 COVID-19 Vaccine ( season) 2024 04/13/2022, 08/03/2020, 07/06/2020 Influenza Adult (#1) 2024 07/05/2023, 04/25/2021, 03/18/2020, Additional history exists Mammogram Screening 07/18/2025 07/18/2023, 07/10/2022, 11/25/2019, Additional history exists DTaP, Tdap and Td Vaccines (2 - Td or Tdap) 02/10/2031 02/10/2021 RSV Immunization or 60+ Years (1 - 1-dose 75+ series) 2037 Pneumococcal Vaccine: Pediatrics (0 to 5 Years) and At-Risk Patients (6 to 64 Years) Aged Out 09/16/2020 No longer eligible based on patient's age to complete this topic Zoster Vaccines Completed 09/26/2021, 05/19/2021 Meningococcal B Vaccine Aged Out No l onger eligible based on patient's age to complete this topic Meningococcal Vaccine Aged Out No yulissa fer eligible based on patient's age to complete this topic RSV Immunizations Under 20 Months Aged Out No longer eligible based on patient's age to complete this topic Insurance MEDICARE Care Teams Propeller Layout Worker Relationship Specialty Start Date End Date None, Provider, PCP - General 01/25/20
--- OUTSIDE RECORDS SUMMARY | 2024-09-17 17:02 | XMS_ITS | Encounter Summary ---
Author Organization [facility] Address [address] [place] [address] Phone Care Team Providers Care Parts Clerk Name Role Phone Ciera Duncan MD Primary Care Provider + Gisela Ribera MD PhD Unavailable [phone] Rae Oviedo MD Unavailable [phone] Lenora Gallo MD Unavailable [phone] Jil Mazariegos DPT Unavailable Ciera Duncan MD Primary Care Provider + Anabelle Villegas OT Unavailable [phone] Patrizia Arriaga DPT Unavail able Yolanda Brannon PIPE FITTER SOFT COPPER Unavailable [phone] Delroy Noel MD, Aquilino Nguyen Unavailable + Linda Marcial RN Unavailable Maame Mirian East MD Unavailable [phone] Roxanne Spring MD Unavailable [phone] Encounter Details Date Type Department Care Team (Latest Contact Info) Description 06/05/2020 Orders Only [facility] ED Scanning, Provider Social History [...] on file Legal Sex Female 10:00 AM RIPSAW MATCHER Gender Identity Female 06/21/2021 11:15 AM RIPSAW MATCHER Sexual Orientation Straight 12/04/2018 12 :10 PM [...] Date/Time Associated Diagnosis Comments CARDIOLOGY DOCUMENT SCAN 06/05/2020 documented in this encounter Results * SCAN - CARDIOLOGY (06/05/2020) Anatomical Region Laterality Modality Other us Provider Scanning CV CARDIAC SERVICES PROCEDURES Final Result documented in this encounter Visit Diagnoses Not on filedocumented in this encounter Additional Health Concerns Infection Onset Date Last Indicated Resolved Time COVID: Suspected 09/07/2023 09/07/2023 09/07/2023 6:27 PM RIPSAW MATCHER documented as of this encounter Care Teams Parts Clerk Relationship Specialty Start Date End Date Ciera Duncan MD PCP - General 08/16/17 07/13/20 Ciera Duncan MD PCP - General Family Medicine 07/16/20 Gisela Ribera MD PhD [address] [place] [address] Radiation Oncologist Radiation Oncology 11/10/18 Rae Oviedo MD [address] [place] [address] Surgeon Surgical Oncology 12/12/18 Lenora Gallo MD [address] [place] [address] Medical Oncologist/Retail Advertising Sales Manager Medical Oncology 01/07/19 02/05/23 Jil Mazariegos, DPT [address] [facility] [place] [address] Physical Therapist Physical Therapy 05/21/20 02/05/23 Anabelle Villegas OT [address] [place] [facility] [place] [address] Occupational Therapist Occupational Therapy 07/26/20 1 08/16/20 Patrizia Arriaga, DPT [address] [place] [address] Physical Therapist Physical Therapy 07/26/20 02/05/23 Yolanda Brannon, TARA [address] [facility] [place] [address] Nurse Practitioner Nurse Practitioner 08/05/20 Aquilino Potts Jr., MD [address] [facility] [address] [place] [address] Consulting Physician Neurology 08/05/20 Linda Marcial, SANDRA Registered Nurse Pulmonary Disease 09/06/22 Mirian Stratton MD Consulting Physician Cardiology 02/06/23 Roxanne Spring MD [address] [facility] [address] [place] [address] Referring Physician Pulmonary Disease 02/06/23 documented as of this encounter
--- OUTSIDE RECORDS SUMMARY | 2024-09-17 17:02 | XMS_ITS | Encounter Summary ---
Author Organization [facility] Address [address] [place] [address] Phone Care Team Providers Care Cell Plasterer Name Role Phone Ciera Duncan MD Primary Care Provider + Mikel Noel MD, Rebel Unavailable + [phone] Gisela Ribera MD PhD Unavailable Rae Oviedo MD Unavailable [phone] Lenora Gallo MD Unavailable Jil Mazariegos DPT Unavailable Ciera Duncan MD Primary Care Provider + Anabelle Villegas OT Unavailable [phone] Patrizia Arriaga DPT Unavail able Yolanda Brannon CONCRETE BLOCK MOLDER Unavailable [phone] Delroy Noel MD, Aquilino Nguyen Unavailable + Linda Marcial RN Unavailable Maame Mirian East MD Unavailable [phone] Roxanne Spring MD Unavailable Encounter Details Date Type Department Care Team (Latest Contact Info) Description 11/01/2018 Orders Only [facility] ONCOLOGY Scanning, Provider Social History Tobacco Use Types [...] file Legal Sex Female 10:00 AM LABORER PRESTRESSED CONCRETE Gender Identity Female 06/21/2021 11:15 AM LABORER PRESTRESSED CONCRETE Sexual Orientation Straight 12/04/2018 12 :10 PM CDT documented as of this encounter Plan of Treatment Not on file documented as of this encounter Procedures Procedure Name Priority Date/Time Associated Diagnosis Comments SCAN - RADIOLOGY/IMAGING 11/01/2018 SCAN - LABS 11/01/2018 documented in this encounter Results * SCAN - LABS (11/01/2018) us Provider Scanning Final Result * SCAN - RADIOLOGY/IMAGING (11/01/2018) Anatomical Region Laterality Modality Other us Provider Scanning Final Result documented in this encounter Visit Diagnoses Not on filedocumented in this encounter Additional Health Concerns Infection Onset Date Last Indicated Resolved Time COVID: Suspected 09/07/2023 09/07/2023 09/07/2023 6:27 PM LABORER PRESTRESSED CONCRETE documented as of this encounter Care Teams Cell Plasterer Relationship Specialty Start Date End Date Ciera Duncan MD PCP - General 08/16/17 07/13/20 Ciera Duncan MD PCP - General Family Medicine 07/16/20 Rebel Morin Jr., MD Medical Oncologist/Grain Combine Driver Medical Oncology 10/31/18 01/06/19 Gisela Ribera MD PhD [address] [id number] Radiation Oncologist Radiation Oncology 11/10/18 Rae Oviedo MD [address] [address] Surgeon Surgical Oncology 12/12/18 Lenora Gallo MD [address] [address] Medical Oncologist/Grain Combine Driver Medical Oncology 01/07/19 02/05/23 Jil Mazariegos, DPT [address] [facility] [address] Physical Therapist Physical Therapy 05/21/20 02/05/23 Anabelle Villegas OT [address] [facility] [address] Occupational Therapist Occupational Therapy 07/26/20 1 08/16/20 Patrizia Arriaga, DPT [address] [address] Physical Therapist Physical Therapy 07/26/20 02/05/23 Yolanda Brannon, CONCRETE BLOCK MOLDER [address] [facility] [address] Nurse Practitioner Nurse Practitioner 08/05/20 Aquilino Potts Jr., MD [address] [facility] [address] [address] Consulting Physician Neurology 08/05/20 Linda Marcial, SANDRA Registered Nurse Pulmonary Disease 09/06/22 Mirian Stratton MD Consulting Physician Cardiology 02/06/23 Roxanne Spring MD [address] [facility] [address] [address] Referring Physician Pulmonary Disease 02/06/23 documented as of this encounter
--- OUTSIDE RECORDS SUMMARY | 2024-09-17 17:02 | XMS_ITS | Encounter Summary ---
Author Organization [facility] Address [address] [place] [address] Phone Care Team Providers Care Learning Solutions Specialist Name Role Phone Ciera Duncan MD Primary Care Provider + Gisela Ribera MD PhD Unavailable [phone] Rae Oviedo MD Unavailable [phone] Lenora Gallo MD Unavailable [phone] Jil Mazariegos DPT Unavailable Ciera Duncan MD Primary Care Provider + Anabelle Villegas OT Unavailable [phone] Patrizia Arriaga DPT Unavail able Yolanda Brannon HEALTH INFORMATION MANAGER Unavailable [phone] Delroy Noel MD, Aquilino Nguyne Unavailable + Linda Marcial RN Unavailable Maame Mirian East MD Unavailable Roxanne Spring MD Unavailable [phone] Encounter Details Date Type Department Care Team (Latest Contact Info) Description 06/15/2020 Orders Only [facility]RIST Scanning, Provider Social History Tobacco Use Types [...] on file Legal Sex Female 10:00 AM HUNTER TRAPPER Gender Identity Female 06/21/2021 11:15 AM HUNTER TRAPPER Sexual Orientation Straight 12/04/2018 12 :10 PM [...] Date/Time Associated Diagnosis Comments SCAN - RADIOLOGY/IMAGING 06/15/2020 documented in this encounter Results * SCAN - RADIOLOGY/IMAGING (06/15/2020) Anatomical Region Laterality Modality Other us Provider Scanning Final Result documented in this encounter Visit Diagnoses Not on filedocumented in this encounter Additional Health Concerns Infection Onset Date Last Indicated Resolved Time COVID: Suspected 09/07/2023 09/07/2023 09/07/2023 6:27 PM HUNTER TRAPPER documented as of this encounter Care Teams Learning Solutions Specialist Relationship Specialty Start Date End Date Ciera Duncan MD PCP - General 08/16/17 07/13/20 Ciera Duncan MD PCP - General Family Medicine 07/16/20 Gisela Ribera MD PhD [address] [place] [address] Radiation Oncologist Radiation Oncology 11/10/18 Rae Oviedo MD [address] [place] [address] Surgeon Surgical Oncology 12/12/18 Lenora Gallo MD [address] [place] [address] Medical Oncologist/Turret Punch Operator Medical Oncology 01/07/19 02/05/23 Jil Mazariegos, DPT [address] [facility] [place] [address] Physical Therapist Physical Therapy 05/21/20 02/05/23 Anabelle Villegas OT [address] [facility] [place] [address] Occupational Therapist Occupational Therapy 07/26/20 1 08/16/20 Patrizia Arriaga, DPT [address] [place] [address] Physical Therapist Physical Therapy 07/26/20 02/05/23 Yolanda Brannon, TARA [address] [facility] [place] [address] Nurse Practitioner Nurse Practitioner 08/05/20 Aquilino Potts Jr., MD [address] [facility] [address] [place] [address] Consulting Physician Neurology 08/05/20 Linda Marcial, SANDRA Registered Nurse Pulmonary Disease 09/06/22 Mirian Stratton MD Consulting Physician Cardiology 02/06/23 Roxanne Spring MD [address] [facility] [address] [place] [address] Referring Physician Pulmonary Disease 02/06/23 documented as of this encounter
--- OUTSIDE RECORDS SUMMARY | 2024-09-17 17:02 | XMS_ITS | Encounter Summary ---
Author Organization [facility] Address [address] [place] [address] Phone Care Team Providers Care Farmworker Grain Name Role Phone Ciera Duncan MD Primary Care Provider + Gisela Ribera MD PhD Unavailable [phone] Rae Oviedo MD Unavailable [phone] Lenora Gallo MD Unavailable [phone] Jil Mazariegos DPT Unavailable Ciera Duncan MD Primary Care Provider + Anabelle Villegas OT Unavailable [phone] Patrizia Arriaga DPT Unavail able Yolanda Brannon ADJUNCT PHLEBOTOMY INSTRUCTOR Unavailable [phone] Delroy Noel MD, Aquilino Nguyen Unavailable + Linda Marcial RN Unavailable Maame Mirian East MD Unavailable [phone] Roxanne Spring MD Unavailable [phone] Encounter Details Date Type Department Care Team (Latest Contact Info) Description 06/07/2020 Orders Only [facility] Scanning, [...] on file Legal Sex Female 10:00 AM BAG VALVER Gender Identity Female 06/21/2021 11:15 AM BAG VALVER Sexual Orientation Straight 12/04/2018 12 :10 PM [...] Priority Date/Time Associated Diagnosis Comments SCAN - LABS 06/07/2020 documented in this encounter Results * SCAN - LABS (06/07/2020) us Provider Scanning Final Result documented in this encounter Visit Diagnoses Not on filedocumented in this encounter Additional Health Concerns Infection Onset Date Last Indicated Resolved Time COVID: Suspected 09/07/2023 09/07/2023 09/07/2023 6:27 PM BAG VALVER documented as of this encounter Care Teams Farmworker Grain Relationship Specialty Start Date End Date Ciera Duncan MD PCP - General 08/16/17 07/13/20 Ciera Duncan MD PCP - General Family Medicine 07/16/20 Gisela Ribera MD PhD [address] [place] [address] Radiation Oncologist Radiation Oncology 11/10/18 Rae Oviedo MD [address] [place] [address] Surgeon Surgical Oncology 12/12/18 Lenora Gallo MD [address] [place] [address] Medical Oncologist/Child Health Associate Medical Oncology 01/07/19 02/05/23 Jil Mazariegos, TEGANT [address] [place] [address] Physical Therapist Physical Therapy 05/21/20 02/05/23 Anabelle Villegas OT [address] [place] [address] Occupational Therapist Occupational Therapy 07/26/20 1 08/16/20 Patrizia Arriaga, TEGANT [address] [place] [address] Physical Therapist Physical Therapy 07/26/20 02/05/23 Yolanda Brannon, TARA [address] [place] [address] Nurse Practitioner Nurse Practitioner 08/05/20 Aquilino Potts Jr., MD [address] [facility] [address] [place] [address] Consulting Physician Neurology 08/05/20 Linda Marcial, RN Registered Nurse Pulmonary Disease 09/06/22 Mirian Stratton MD Consulting Physician Cardiology 02/06/23 Roxanne Spring MD [address] [facility] [address] [place] [address] Referring Physician Pulmonary Disease 02/06/23 documented as of this encounter
--- OUTSIDE RECORDS SUMMARY | 2024-09-17 17:04 | XMS_ITS | Continuity of Care Document ---
Author Organization [facility] Address [address] [place] [address] Phone Care Team Providers Care Manager Mobility Name Role Phone Saida LOCK FACS, Jimmy [...] Diagnoses Date Provider Providers Copied on Encounter [facility], [address] [place] [address] [address], [place], [place], [address], tel:[phone] [facility] No Information 2 Saida Marquez. [address] [place] [address] [employer], [address], [place], [address], . tel:[phone] Referring Provider: Roxanne Kramer, [address] [facility] [address], [place], [address] . tel:[phone] [facility], [address], [place], [place], [id number], tel:[phone] [place] [address] No Information 2 Saida Marquez. [address] [place] [address] [employer], [address], [place], [place], [address], . tel:[phone] Referring Provider: Roxanne Kramer, [address] [facility] [address], [place], [address] . tel:[phone] Office/outpa tient Visit, Est [facility], [address] [place] [address] [address], [place], [place], [address], [place] tel:[phone] SEC Maryellen Guerrero NP complete exam (chief complaint) PCO (posterior capsular opacification), bilateralBilatera l dry eyes 2 Saida Marquez. [address], [address], [place], [place], [address], [place]. tel:[phone] Akil Mccall MD.Referri ng Provider: Roxanne Kramer, [address] [place] [address] [address], [place], [address] . tel:[phone] [facility], [address] [place] [address] [address], [place], [place], [address], [place] tel:[phone] [facility] No Information 8 Kwabena Leos. [facility] , [address], [place], [place], [facility], [place]. tel:[phone] [facility], [address] [place] [address] [address], [place], [place], [address], [place] tel:[phone] [facility] No Information 2-200 7 Kwabena Leos. [address] [facility] , [address], [place], [place], [facility], [place]. tel:[phone] Referring Provider: Deric Aiken, [address], [place], [place], [facility]. tel:[phone] [facility], [address] [place] [address] [address], [place], [place], [address], [place] tel:[phone] [facility] No Information 8-200 7 Kwabena Leos. [address] [facility] , [address], [place], [place], [facility], [place]. tel:[phone] Referring Provider: Ciera Duncan MD, [address] [place], [place], [facility]. tel:[phone] Family History Family Member Type Diagnosis Age At Onset Problem Family history of Glaucoma Problem Family history of Diabetes m ellitus Problem Family history of Retinal de tachment Payers Payer name Insurance type Covered constitution party ID Jacqueline bustillos(s) [employer] Out [place] [id number] Social History Type Description Quantity Date Captured Comments Sex Female Smoking Status No Information Chief Complaint And Reason For Visit No Information Reason For Referral Reason For Referral No Information Plan Of Treatment Date Type Action Status Goal Tobacco cessation counseling completed Patient Education Learning About YAG Lase r Capsulotomy completed History Of Present Illness Encounter Date Complaint History Of Prese nt Illness HOSTED SERVICES ANALYST complete exam The 61 year old patient presents for evaluation of HOSTED SERVICES ANALYST complete exam in the right eye and [...]
== END 2024-09-17 17:10 | disposition home or self-care (01) ==
PROVIDERS: Emergency Provider Nurse Practitioner Family; PCP Family Medicine
DX: J18.9 Pneumonia, unspecified organism (principal); J45.901 Unspecified asthma with (acute) exacerbation; E78.2 Mixed hyperlipidemia; M47.22 Other spondylosis with radiculopathy, cervical region; Z85.3 Personal history of malignant neoplasm of breast; Z90.11 Acquired absence of right breast and nipple; Z86.16 Personal history of COVID-19
CPT/HCPCS: 71046; 87804; 94640; 99213; G0463; J7512

== ENCOUNTER 2025-01-29 14:19 | Outpatient (CLI) | payer MEDICARE, OTHER, SELFPAY ==
--- OUTSIDE RECORDS SUMMARY | 2025-01-29 14:23 | XMS_ITS | Encounter Summary ---
Author Organization [facility] Address [address] [place] [address] Care Team Providers Care Retail Aide Name Role Phone Unavailable Primary Care Provider Unavailabl e Encounter Details Date Type Department Care Team (Late st Contact Info) Description 11/01/2014 Nurse Triage Report ST[facility] ABSTRACTION Karina Danielle RN Social History Tobacco Use Types Packs/Day Years Used Date Smoking Tobacco: Never Assessed Comments Unknown Sex and Gender Information Value Date Recorded Sex Assigned at Not on file Legal Sex Female 3:37 AM CROWN POUNCER Gender Identity Not on file Sexual Orientation [...] review-oral <<<<<<<< TRIAGE NOTE >>>>>>>> Triage Note: Retort Cooler Karina Danielle added this note on Nov 01 2014 9:53AM: Pt states she will go to [facility] in [place], [place]. <<<<<<<< TRIAGE/OUTCOME >>>>>>>> Guideline Title: Elbow [...]
--- OUTSIDE RECORDS SUMMARY | 2025-01-29 14:23 | XMS_ITS | Encounter Summary ---
Author Organization [facility] Address [address] [place] [address] Care Team Providers Care Beauty Specialist Name Role Phone Gisela Ribera MD PhD Unavailable Rae Ovideo MD Unavailable [phone] Lenora Gallo MD Unavailable [phone] Jil Mazariegos DPT Unavailable Ciera Duncan MD Primary Care Provider + Patrizia Arriaga DPT Unavail able Yolanda Brannon TRANSVERSE ABDOMINAL MUSCLE SURGEON Unavailable Delroy Noel MD, Aquilino Nguyen Unavailable + Linda Marcial RN Unavailable Maame Mirian East MD Unavailable [phone] Roxanne Spring MD Unavailable Encounter Details Date Type Department Care Team (Late st Contact Info) Description 02/02/[address] 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 Pts next session was week of 10/17 and week of 10/24. Pt psychiatric re-evaluation was 10/28 with ON HOLD order for 30 days while she went to [place] to return with both of her aging parents ([place], [place]); her next psychiatric re-evaluation is scheduled for [...] COVID: Suspected 09/07/2023 09/07/2023 09/07/2023 6:27 PM TOOL POLISHING MACHINE OPERATOR documented as of this encounter Care Teams Beauty Specialist Relationship Specialty Start Date End Date Ciera Duncan MD [address] [facility] [address] [place] [address] PCP - General Family Medicine 07/16/20 Gisela Ribera MD PhD [address] LL [facility] [address] [place] [address] Radiation Oncologist Radiation Oncology 11/10/18 Rae Oviedo MD [address] LL [facility] [address] [place] [address] Surgeon Surgical Oncology 12/12/18 Lenora Gallo MD [address] LL [facility] [address] [place] [address] Medical Oncologist/Residential Roofer Helper Medical Oncology 01/07/19 02/05/23 Jil Mazariegos, DPT [address] [facility] [address] [address] Physical Therapist Physical Therapy 05/21/20 02/05/23 Patrizia Arriaga, DPT [address] [facility] [address] [address] Physical Therapist Physical Therapy 07/26/20 02/05/23 Yolanda Brannon, TRANSVERSE ABDOMINAL MUSCLE SURGEON [address] [facility] [address] [address] Nurse Practitioner Nurse Practitioner 08/05/20 Aquilino Potts Jr., MD [address] [facility] [address] [address] Consulting Physician Neurology 08/05/20 Linda Marcial, RN Registered Nurse Pulmonary Disease 09/06/22 Mirian Stratton MD Consulting Physician Cardiology 02/06/23 Roxanne Spring MD [address] [facility] [address] [place] [address] Referring Physician Pulmonary Disease 02/06/23 documented as of this encounter
--- OUTSIDE RECORDS SUMMARY | 2025-01-29 14:23 | XMS_ITS | Encounter Summary ---
Author Organization [facility] Address [address] [facility] [address] [place] [address] Phone Care Team Providers Care Site Acquisition Manager Name Role Phone Gisela Ribera MD PhD Unavailable [phone] Rae Oviedo MD Unavailable Ciera Duncan MD Primary Care Provider + Yolanda Brannon NEWS VIDEO EDITOR Unavailable Delroy Noel MD, Aquilino Nguyen Unavailable + Linda Marcial RN Unavailable Maame amandailaMirian Alas MD Unavailable [phone] Roxanne Spring MD Unavailable Encounter Details Date Type Department Care Team (Late st Contact Info) Description 01/19/2025 Results Follow-Up [facility] [address] [facility] [address] [place] [address] Lakisha Flowers NP [address] [facility] [id number] [place] [address] MRI Breast Bilateral W WO Contrast Social History Tobacco Use Types Packs/Day Years [...] on file Legal Sex Female 10:00 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 Care Plan Problem 2. 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 Pts next session was week of 10/17 and week of 10/24. Pt psychiatric re-evaluation was 10/28 with ON HOLD order for 30 days while she went to [place] to return with both of her aging parents ([place], [place]); her next psychiatric re-evaluation is scheduled [...] documented as of this encounter Care Teams Site Acquisition Manager Relationship Specialty Start Date End Date Ciera Duncan MD [address] [place] [address] PCP - General Family Medicine 07/16/20 Gisela Ribera MD PhD [address] LL [facility] [address] [place] [address] Radiation Oncologist Radiation Oncology 11/10/18 Rae Oviedo MD [address] LL [facility] [address] [place] [address] Surgeon Surgical Oncology 12/12/18 Yolanda Brannon NP [address] [place] [address] Nurse Practitioner Nurse Practitioner 08/05/20 Aquilino Potts Jr., MD [address] [facility] [address] [place] [address] Consulting Physician Neurology 08/05/20 Linda Marcial, RN Registered Nurse Pulmonary Disease 09/06/22 Mirian Stratton MD Consulting Physician Cardiology 02/06/23 Roxanne Spring MD [address] [place] [address] Referring Physician Pulmonary Disease 02/06/23 documented as of this encounter
--- OUTSIDE RECORDS SUMMARY | 2025-01-29 14:23 | XMS_ITS | Encounter Summary ---
Author Organization [facility] Address [address] [place] [address] Phone Care Team Providers Care Medical Logistics Specialist Name Role Phone Gisela Ribera MD PhD Unavailable Rae Oviedo MD Unavailable [phone] Ciera Duncan MD Primary Care Provider + Yolanda Brannon TOLL SETTLEMENT CLERK Unavailable [phone] Delroy Noel MD, Aquilino Nguyen Unavailable + Linda Marcial RN Unavailable Maame vailable Mirian Stratton MD Unavailable Roxanne Spring MD Unavailable Encounter Details Date Type Department Care Team (Latest Contact Info) Description 01/03/2025 Results Follow-Up [facility] Cardiology [address] [facility] [address] [place] [address] Mirian Stratton MD [facility] [address] [place] [address] Transthoracic Echo (TTE) Complete W Doppler/CF Social History Tobacco Use Types Packs/Day Years [...] on file 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 Care Plan Problem 2. 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 Pts next session was week of 10/17 and week of 10/24. Pt psychiatric re-evaluation was 10/28 with ON HOLD order for 30 days while she went to [place] to return with both of her aging parents ([place], [place]); her next psychiatric re-evaluation is scheduled [...] documented as of this encounter Care Teams Medical Logistics Specialist Relationship Specialty Start Date End Date Ciera Duncan MD [address] [place] [address] PCP - General Family Medicine 07/16/20 Gisela Ribera MD PhD [address] LL [facility] [address] [place] [address] Radiation Oncologist Radiation Oncology 11/10/18 Rae Oviedo MD [address] [place] [address] Surgeon Surgical Oncology 12/12/18 Yolanda Brannon NP [address] [place] [address] Nurse Practitioner Nurse Practitioner 08/05/20 Aquilino Potts Jr., MD [address] [facility] [address] [place] [address] Consulting Physician Neurology 08/05/20 Linda Marcial, RN Registered Nurse Pulmonary Disease 09/06/22 Mirian Stratton MD Consulting Physician Cardiology 02/06/23 Roxanne Spring MD [address] [place] [address] Referring Physician Pulmonary Disease 02/06/23 documented as of this encounter
--- OUTSIDE RECORDS SUMMARY | 2025-01-29 14:23 | XMS_ITS | Clinical Summary ---
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
--- OUTSIDE RECORDS SUMMARY | 2025-01-29 14:24 | XMS_ITS | Encounter Summary ---
Author Organization [facility] Healthcare Address [address] [place] [address] Care Team Providers Care Diesel Engine Engineer Name Role Phone Gisela Ribera MD PhD Unavailable Rae Oviedo MD Unavailable Lenora Gallo MD Unavailable [phone] Jil Mazariegos DPT Unavailable Ciera Duncan MD Primary Care Provider + Patrizia Arriaga DPT Unavail able Yolanda Brannon FIXTURE BUILDER Unavailable Delroy Noel MD, Aquilino Nguyen Unavailable + Linda Marcial RN Unavailable Maame Mirina East MD Unavailable [phone] Roxanne Spring MD Unavailable Encounter Details Date Type Department Care Team (Late st Contact Info) Description 11/03/2022 Documentation [facility] Senior Counseling [address] [place] [address] [place] [address] [place], [place] [id number] Social History Tobacco Use Types Packs/Day Years [...] on file Legal Sex Female 10:00 AM FILTER TANK TENDER Gender Identity Female 06/21/2021 11:15 AM FILTER TANK TENDER Sexual Orientation Straight 12/04/2018 12 :10 PM [...] Poor Satisfaction with Living Conditions Anabelle Montano, FORMING YARDAGE CONTROL OPERATOR Note: New Extended Expected End Date 07/07/2022 [...] task. 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 Pt struggles with day-to-day living from significant life event and health condition changes which resulted in early assisted from career work, placement in [employer] & loss of work family support, loss [...] for listed symptoms of Depression, and Chronic Jrvh-Nifulzxtj-Ppjgan-Disorder, in order to report improved management of [...] individual only for 3x; Tx Order from Cable Systems Installer/Psychiatrist to 1D/Wk Group Psychotherapy & 1Ind/@ 2wks 10/07. Pts next session was week of 10/17 and week of 10/24. Pt psychiatric re-evaluation was 10/28 with ON HOLD order for 30 days while she went to [place] to return with both of her aging parents ([place], [place]); her next psychiatric re-evaluation is scheduled [...] COVID: Suspected 09/07/2023 09/07/2023 09/07/2023 6:27 PM FILTER TANK TENDER documented as of this encounter Care Teams Diesel Engine Engineer Relationship Specialty Start Date End Date Ciera Duncan MD [address] [facility] [address] [place] [address] PCP - General Family Medicine 07/16/20 Gisela Ribera MD PhD [address] [place] [address] Radiation Oncologist Radiation Oncology 11/10/18 Rae Oviedo MD [address] [place] [address] Surgeon Surgical Oncology 12/12/18 Lenora Gallo MD [address] [place] [address] Medical Oncologist/Upper Cutter Out Medical Oncology 01/07/19 02/05/23 Jil Mazariegos DPT [address] [facility] [address] [place] [address] Physical Therapist Physical Therapy 05/21/20 02/05/23 Patrizia Arriaga DPT [address] [facility] [address] [address] Physical Therapist Physical Therapy 07/26/20 02/05/23 Yolanda Brannon, FIXTURE BUILDER [address] [facility] [address] [facility] [place], [place] [id number] Nurse Practitioner Nurse Practitioner 08/05/20 Aquilino Potts Jr., MD [address] [place] [address] [address] Consulting Physician Neurology 08/05/20 Linda Marcial, SANDRA Registered Nurse Pulmonary Disease 09/06/22 Mirian Stratton MD Consulting Physician Cardiology 02/06/23 Roxanne Spring MD [address] [facility] [address] [place] [address] Referring Physician Pulmonary Disease 02/06/23 documented as of this encounter
--- OUTSIDE RECORDS SUMMARY | 2025-01-29 14:24 | XMS_ITS ---
Author Organization [facility] Address [address] [facility] [place] [address] Care Team Providers Care Administrative Analyst Name Role Phone Gisela Ribera MD PhD Unavailable Rae Oviedo MD Unavailable Ciera Duncan MD Primary Care Provider + Yolanda Brannon MICROARRAY OPERATIONS VICE PRESIDENT Unavailable Delroy Noel MD, Aquilino Nguyen Unavailable + Linda Marcial RN Unavailable Maame Mirian East MD Unavailable Roxanne Spring MD Unavailable [phone] Active Problems Problem Noted Date Diagnosed Date Class 2 severe obesity due t o excess calories with serious comorbidity and body mass index (BMI) of 37.0 to 37.9 in adult 01/08/2025 Ataxia 02/01/2024 Abnormal MRI, breast 08/23/2023 Coronary artery disease invo lving [place] coronary artery of [place] heart with angina pectoris 07/31/2023 Agatston coronary artery calcium score between 2 00 and 399 07/31/2023 Hiatal hernia with GERD 07/04/2023 Dysphotopsia 06/14/2023 Assessment & Plan (06/14/2023 9:55 AM MOLD FORMS BUILDER): Monovision with OS set for near. Wants [...] be completed prior to her next appointment. Chronic posttraumatic stress disorder 09/09/2021 Mild persistent [...] rehab. Assessment & Plan (08/30/2021 1:55 PM MOLD FORMS BUILDER): Patient continue to use her Trelegy 1 inhalation once a day. Patient continue to use her albuterol inhaler as needed up to 4 times a day for shortness of breath. Pulmonary rehab if the shortness of breath is not related to a cardiac issue. Assessment & Plan (06/21/2021 3:04 PM MOLD FORMS BUILDER): Patient will continue with Trelegy 1 puff daily, Singulair 10 mg daily and Flonase. I will refer her to see Dr. Nova in [place] for skin testing and possible Dupixent injections. She will follow-up with me in 2 months. SOPHY (obstructive sleep apnea) 03/24/2021 Assessment & Plan (12/06/2022 12:15 PM CDT): Intermittently non compliant with her mask. Would like to follow with sleep medicine at [facility]. Referral placed. Assessment & Plan (10/24/2021 10:06 AM CDT): Patient continue to wear CPAP in auto titrating range of 13-20 cm water pressure while sleeping. Her DME is [facility]. Assessment & Plan (08/30/2021 1:55 PM MOLD FORMS BUILDER): Patient continue to wear her CPAP in auto titrating range of 13-20 cm water pressure while sleeping. Her DME is [facility]. 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 We had seen her a few years ago and the diagnosis then. She does have some hyper reflective foci consistent with this in both eyes. She describes a para foveal scotoma both superiorly in the temporal field and the nasal field. In the left eye, on OCT, she has a wedge-shaped defect inferior to the fovea. She does have vascular lesions consistent with the diagnosis. She has received anti VEGF pharmacotherapy in both eyes we discussed with her the natural history of the disease and the data surrounding anti VEGF pharmacotherapy in perifoveal telangiectasia . At this time, I do not see definite evidence of choroidal neovascularization in either eye and I do not see overt ellipsoid zone defects. As such, I will defer any injections today and I discussed this with her. I also discussed the data surrounding serine supplementation and the genetic as well as a metabolic data published by many groups. We discussed the recent approval of the ciliary neuro trophic factor implant but given her intact ellipsoid zone I have recommended monitoring for now as the risks of the surgical procedure outweigh any marginal benefits that she might see. Of Course, will continue to monitor this and get appropriate imaging in the future. Assessment & Plan (05/08/2023 9:28 AM MOLD FORMS BUILDER): She has significant visual difficulty associated with distance intermediate and near vision. This is complicated by her diplopia for which she uses prisms. She is currently using 3 pairs of glasses but her acuity still suboptimal. I have recommended that she see a low color television console monitor at the [facility] low vision clinic. Discussed CNTF [...] from 10/31/2018:Stage IA(cT1, cN0, cM0, G2, ER+, GA+, HER2-) - Signed by Gisela Ribera MD PhD on 11/10/2018 Pathologic:Stage IA(pT1b, pN0, cM0, G2, ER+, GA+, HER2-) - Signed by Gisela Ribera MD PhD on 11/10/2018 Breast cancer screening, high risk patient 08/30 Hiatal hernia 09/21/2017 Elbow pain 12/03/2014 Assessment & Plan (08/30/2021 1:54 PM MOLD FORMS BUILDER): I have ordered an iron and ferritin [...] depression i n partial remission 10/28/2021 11/25/2021 Morbid (severe) obesity due to excess calories 10/24/2021 01/08/2025 BMI 40.0-44.9, adult 10/24/2021 025 Snoring 01/25/2021 06/21/2021 Hypersomnia 01/25/2021 05/03/2021 Assessment [...] depression 07/16/2020 10/07/2021 Moderate anxiety 07/16/2020 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
--- OUTSIDE RECORDS SUMMARY | 2025-01-29 14:24 | XMS_ITS | Encounter Summary ---
Author Organization [facility] Address [address] [place] [address] Phone Care Team Providers Care Petroleum Inspector Name Role Phone Gisela Ribera MD PhD Unavailable [phone] Rae Oviedo MD Unavailable [phone] Lenora Gallo MD Unavailable [phone] Jil Mazariegos DPT Unavailable Ciera Duncan MD Primary Care Provider + Patrizia Arriaga DPT Unavail able Yolanda Brannon NP Unavailable [phone] Delroy Noel MD, Aquilino Nguyen Unavailable + Linda Marcial RN Unavailable Maame vailable Reason for Referral * Procedure (Routine) - Closed Specialty Diagnoses / Procedures Referred By Contac t Referred To Contact Diagnoses Mild persistent asthma without complication Procedures Pulmonary Function Test -[facility] Adult PFT Lab- [facility]; Spirometry, Oxygen Assessment Titration Roxanne Spring MD [address] [place] [address] Phone: tel: fax: Referral ID Status Reason Start Date Expiration Date Visits Re quested Visits Authorized [id number] Closed 01/01/2023 01/31/2024 1 1 Reason for Visit * Procedure (Routine) - Closed Specialty Diagnoses / Procedures Referred By Contac t Referred To Contact Diagnoses Mild persistent asthma without complication Procedures Pulmonary Function Test -[facility] Adult PFT Lab- [facility]; Spirometry, Oxygen Assessment Titration Roxanne Spring MD [address] [facility] [address] [place] [address] Phone: tel: fax: Referral ID Status Reason Start Date Expiration Date Visits Re quested Visits Authorized [id number] Closed 01/01/2023 01/31/2024 1 1 Encounter Details Date Type Department Care Team (Latest Contact Info) Description 01/16/2023 7:14 AM CDT Hospital Encounter [facility] PFT Lab [address] [place] [id number] Mild persistent asthma without complication Social History [...] on file Legal Sex Female 10:00 AM BIAS CUTTER HELPER Gender Identity Female 06/21/2021 11:15 AM BIAS CUTTER HELPER Sexual Orientation Straight 12/04/2018 12 :10 PM [...] Satisfaction with Living Conditions No Anabelle Tanner, DONOR CENTER TECHNICIAN Note: New Extended Expected End Date 07/07/2022 [...] task. 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 [facility] Division of Pulmonary & Critical Care Medicine [address] [place] [address]; [place] [address]; [place] [address]; [phone] Pulmonary Function Laboratory Pulmonary Stress Test Simple/Oxygen [...] Work [distance (m) x body wt (kg)]: 84358 kg.m (normal >60,000kg.m) Oxygen required to maintain [...] with the written final report. PFT performed at:->[facility] Adult PFT Lab- [facility] Procedure:->Spirometry Procedure:->Oxygen Assessment Titration us Roxanne Spring MD PFT ORDERABLES Final Result documented in this encounter Visit Diagnoses Diagnosis Mild persistent asthma without complication documented in this encounter Additional Health Concerns Active Problems Noted Date Diagnosed Date Problem 1 (Reinstated 11/25) Scoutmob/EMR glitch) Problems with Health Conditions 12/13/2021 Note: [...] for listed symptoms of Depression, and Chronic Grzs-Wlqrpljzp-Ihnjeg-Disorder, in order to report improved management of [...] health condition changes which resulted in early residential from career work, placement in [employer] & loss of work family support, loss [...] for listed symptoms of Depression, and Chronic Vgxo-Xhsiflfpy-Igfulc-Disorder, in order to report improved management of [...] individual only for 3x; Tx Order from Retail Support Associate/Psychiatrist to 1D/Wk Group Psychotherapy & 1Ind/@ 2wks 10/07. Pts next session was week of 10/17 and week of 10/24. Pt psychiatric re-evaluation was 10/28 with ON HOLD order for 30 days while she went to [place] to return with both of her aging parents ([place], [place]); her next psychiatric re-evaluation is scheduled [...] Due Date: 10/19/2021 Responsible User: Anabelle Tanner [facility] Infection Onset Date Last Indicated Resolved Time COVID: Suspected 09/07/2023 09/07/2023 09/07/2023 6:27 PM BIAS CUTTER HELPER documented as of this encounter Care Teams Petroleum Inspector Relationship Specialty Start Date End Date Ciera Duncan MD [address] [facility] [address] [place] [address] PCP - General Family Medicine 07/16/20 Gisela Ribera MD PhD [address] [facility] [address] [place] [address] Radiation Oncologist Radiation Oncology 11/10/18 Rae Oviedo MD [address] [place] [address] Surgeon Surgical Oncology 12/12/18 Lenora Gallo MD [address] [place] [address] Medical Oncologist/Operating Room Specialist Medical Oncology 01/07/19 02/05/23 Jil Mazariegos, TEGANT [address] [address] Physical Therapist Physical Therapy 05/21/20 02/05/23 Patrizia Arriaga DPT [address] [facility] [address] [facility] [place] [address] Physical Therapist Physical Therapy 07/26/20 02/05/23 Yolanda Brannon, TARA [address] [facility] [address] [facility] [place] [address] Nurse Practitioner Nurse Practitioner 08/05/20 Aquilino Potts Jr., MD [address] [facility] [address] [address] Consulting Physician Neurology 08/05/20 Linda Marcial, RN Registered Nurse Pulmonary Disease 09/06/22 documented as of this encounter
--- OUTSIDE RECORDS SUMMARY | 2025-01-29 14:24 | XMS_ITS | Encounter Summary ---
Author Organization [facility] Address [address] [place] [address] Phone Care Team Providers Care Social Work Supervisor Name Role Phone Ciera Duncan MD Primary Care Provider + Gisela Ribera MD PhD Unavailable [phone] Rae Oviedo MD Unavailable [phone] Lenora Gallo MD Unavailable [phone] Jil Mazariegos DPT Unavailable Ciera Duncan MD Primary Care Provider + Anabelle Villegas OT Unavailable [phone] Patrizia Arriaga DPT Unavail able Yolanda Brannon RESOURCING CONSULTANT Unavailable [phone] Delroy Noel MD, Aquilino Nguyen Unavailable + Linda Marcial RN Unavailable Maame Mirian East MD Unavailable [phone] Roxanne Spring MD Unavailable [phone] Encounter Details Date Type Department Care Team [...] on file Legal Sex Female 10:00 AM EXPANDED DUTY DENTAL ASSISTANT Gender Identity Female 06/21/2021 11:15 AM EXPANDED DUTY DENTAL ASSISTANT Sexual Orientation Straight 12/04/2018 12 :10 PM CDT documented as of this encounter Plan of Treatment Not on file documented as of this encounter Goals Goal Patient Goal Type Associated Problems Recent Progress Patient-Stated? Author CCM Chronic Pain Care Plan Chronic Care Management No change(03/07 11:13 AM CDT) No Suzan Isabel RN [...] COVID: Suspected 09/07/2023 09/07/2023 09/07/2023 6:27 PM EXPANDED DUTY DENTAL ASSISTANT documented as of this encounter Care Teams Social Work Supervisor Relationship Specialty Start Date End Date Ciera Duncan MD PCP - General 08/16/17 07/13/20 Ciera Duncan MD PCP - General Family Medicine 07/16/20 Gisela Ribera MD PhD [address] [place] [address] Radiation Oncologist Radiation Oncology 11/10/18 Rae Oviedo MD [address] [place] [address] Surgeon Surgical Oncology 12/12/18 Lenora Gallo MD [address] [place] [address] Medical Oncologist/Interactive Media Marketing Strategist Medical Oncology 01/07/19 02/05/23 Jil Mazariegos, DPT [address] [place] [address] Physical Therapist Physical Therapy 05/21/20 02/05/23 Anabelle Villegas OT [address] [place] [address] Occupational Therapist Occupational Therapy 07/26/20 1 08/16/20 Patrizia Arriaga, TEGANT [address] [place] [address] Physical Therapist Physical Therapy 07/26/20 02/05/23 Yolanda Brannon, TARA [address] [place] [address] Nurse Practitioner Nurse Practitioner 08/05/20 Aquilino Potts Jr., MD [address] [facility] [address] [place] [address] Consulting Physician Neurology 08/05/20 Linda Marcial, SANDRA Registered Nurse Pulmonary Disease 09/06/22 Mirian Stratton MD Consulting Physician Cardiology 02/06/23 Roxanne Spring MD [address] [facility] [address] [place] [address] Referring Physician Pulmonary Disease 02/06/23 documented as of this encounter
--- OUTSIDE RECORDS SUMMARY | 2025-01-29 14:24 | XMS_ITS | Clinical Summary ---
Author Organization [facility] Address [address] [place] [address] Care Team Providers Care National Van Owner Operator Name Role Phone None, Provider MD Primary [...] mouth 2 (two) times daily. 4 Active Active Problems Problem Noted Date Diagnosed Date [...] 12:36 AM CDT Height 167.6 cm (5' 6) 01/19/2024 12:36 AM CDT Body Mass Index [...] 1992 Cervical Cancer Screening with HPV 1992 Pneumococcal Vaccine: 50+ Years (2 of 2 - PCV) 09/16/2021 09/16/2020 COVID-19 Vaccine ( season) 2024 04/13/2022, 08/03/2020, 07/06/2020 Mammogram Screening 07/18/2025 07/18/2023, 07/10/2022, 11/25/2019, Additional history exists DTaP, Tdap and Td Vaccines (2 - Td or Tdap) 02/10/2031 02/10/2021 RSV Immunization or 60+ Years (1 - 1-dose 75+ series) 2037 Zoster Vaccines Completed 09/26/2021, 05/19/2021 Meningococcal B Vaccine Aged Out No l onger eligible based on patient's age to complete this topic Meningococcal Vaccine Aged Out No yulissa fer eligible based on patient's age to complete this topic RSV Immunizations Under 20 Months Aged Out No longer eligible based on patient's age to complete this topic Insurance MEDICARE Care Teams National Van Owner Operator Relationship Specialty Start Date End Date None, ProviderMD PCP - General 01/25/20
--- OUTSIDE RECORDS SUMMARY | 2025-01-29 14:24 | XMS_ITS | Encounter Summary ---
Author Organization [facility] Address [address] [place] [address] Phone Care Team Providers Care Shot Lighter Name Role Phone Ciera Duncan MD Primary Care Provider + Mikel Noel MD, Rebel Unavailable + [phone] Gisela Ribera MD PhD Unavailable [phone] Rae Oviedo MD Unavailable Lenora Gallo MD Unavailable Jil Mazariegos DPT Unavailable Ciera Duncan MD Primary Care Provider + Anabelle Villegas OT Unavailable [phone] Patrizia Arriaga DPT Unavail able Yolanda Brannon RADIOLOGY TRANSCRIPTIONIST Unavailable [phone] Delroy Noel MD, Aquilino Nguyen Unavailable + Linda Marcial RN Unavailable Maame Mirian East MD Unavailable Roxanne Spring MD Unavailable Encounter Details Date Type Department Care Team (Late st Contact Info) Description 11/06/2018 Telephone [facility] Physicians [facility] Oncology [address] [facility] [place] [address] [place] [address] Nichelle Garcia CMA Social History Tobacco Use [...] on file Legal Sex Female 10:00 AM EXERCISE PHYSIOLOGIST CERTIFIED Gender Identity Female 06/21/2021 11:15 AM EXERCISE PHYSIOLOGIST CERTIFIED Sexual Orientation Straight 12/04/2018 12 :10 PM CDT documented as of this encounter Plan of Treatment Not on file documented as of this encounter Visit Diagnoses Not on filedocumented in this encounter Additional Health Concerns Infection Onset Date Last Indicated Resolved Time COVID: Suspected 09/07/2023 09/07/2023 09/07/2023 6:27 PM EXERCISE PHYSIOLOGIST CERTIFIED documented as of this encounter Care Teams Shot Lighter Relationship Specialty Start Date End Date Ciera Duncan MD PCP - General 08/16/17 07/13/20 Ciera Duncan MD PCP - General Family Medicine 07/16/20 Rebel Morin Jr., MD Medical Oncologist/Soft Mud Molder Medical Oncology 10/31/18 01/06/19 Gisela Ribera MD PhD [address] [facility] [address] [place] [address] Radiation Oncologist Radiation Oncology 11/10/18 Rae Oviedo MD [address] [place] [address] Surgeon Surgical Oncology 12/12/18 Lenora Gallo MD [address] [place] [address] Medical Oncologist/Soft Mud Molder Medical Oncology 01/07/19 02/05/23 Jil Mazariegos, DPT [address] [place] [address] [facility] [place] [address] Physical Therapist Physical Therapy 05/21/20 02/05/23 Anabelle Villegas OT [address] [facility] [place] [address] [facility] [place] [address] Occupational Therapist Occupational Therapy 07/26/20 1 08/16/20 Patrizia Arriaga, TEGANT [address] [place] [address] [place] [address] Physical Therapist Physical Therapy 07/26/20 02/05/23 Yolanda Brannon, TARA [address] [place] [address] [place] [address] Nurse Practitioner Nurse Practitioner 08/05/20 Aquilino Potts Jr., MD [address] [place] [address] [place] [address] Consulting Physician Neurology 08/05/20 Broccard, Linda Micaela, RN Registered Nurse Pulmonary Disease 09/06/22 Mirian Stratton MD Consulting Physician Cardiology 02/06/23 Roxanne Spring MD [address] [facility] [address] [place] [address] Referring Physician Pulmonary Disease 02/06/23 documented as of this encounter
--- OUTSIDE RECORDS SUMMARY | 2025-01-29 14:24 | XMS_ITS | Encounter Summary ---
Author Organization [facility] Address [address] [place] [address] Care Team Providers Care Family Nurse Practitioner Name Role Phone Ciera Duncan MD Primary Care Provider + Gisela Ribera MD PhD Unavailable +[phone] Rae Oviedo MD Unavailable [phone] Lenora Gallo MD Unavailable +- [phone] Jil Mazariegos DPT Unavailable Ciera Duncan MD Primary Care Provider + Anabelle Villegas OT Unavailable [phone] Patrizia Arriaga DPT Unavail able Yolanda Brannon DRUM WORKER Unavailable [phone] Delroy Noel MD, Aquilino Nguyen Unavailable + Linda Marcial RN Unavailable Maame Mirian East MD Unavailable +[phone] Roxanne Spring MD Unavailable [phone] Reason for Visit * Reason Onset Date Comments Pre-Surgical Call 04/12/2020 Encounter Details Date Type Department Care Team (Late st Contact Info) Description 04/12/2020 Telephone [facility] [address] [facility] [address] [place] [address] Lety Worrell MD PhD [address] [place] [address] Pre-Surgical Call Social History Tobacco Use Types [...] on file Legal Sex Female 10:00 AM TRACK MECHANIC Gender Identity Female 06/21/2021 11:15 AM TRACK MECHANIC Sexual Orientation Straight 12/04/2018 12 :10 PM [...] COVID: Suspected 09/07/2023 09/07/2023 09/07/2023 6:27 PM TRACK MECHANIC documented as of this encounter Care Teams Family Nurse Practitioner Relationship Specialty Start Date End Date Ciera Duncan MD PCP - General 08/16/17 07/13/20 Ciera Duncan MD PCP - General Family Medicine 07/16/20 Gisela Ribera MD PhD [address] [place] [address] Radiation Oncologist Radiation Oncology 11/10/18 Rae Oviedo MD [address] [place] [address] Surgeon Surgical Oncology 12/12/18 Lenora Gallo MD [address] [place] [address] Medical Oncologist/Underwriting Analyst Medical Oncology 01/07/19 02/05/23 Jil Mazariegos, DPT [address] [place] [address] [facility] [place] [address] Physical Therapist Physical Therapy 05/21/20 02/05/23 Anabelle Villegas OT [address] [place] [address] [facility] [place] [address] Occupational Therapist Occupational Therapy 07/26/20 1 08/16/20 Patrizia Arriaga, DPT [address] [place] [address] [place] [address] Physical Therapist Physical Therapy 07/26/20 02/05/23 Yolanda Brannon, TARA [address] [place] [address] [place] [address] Nurse Practitioner Nurse Practitioner 08/05/20 Aquilino Potts Jr., MD [address] [facility] [address] [place] [address] Consulting Physician Neurology 08/05/20 Linda Marcial, SANDRA Registered Nurse Pulmonary Disease 09/06/22 Mirian Stratton MD Consulting Physician Cardiology 02/06/23 Roxanne Spring MD [address] [facility] [address] [place] [address] Referring Physician Pulmonary Disease 02/06/23 documented as of this encounter
--- OUTSIDE RECORDS SUMMARY | 2025-01-29 14:24 | XMS_ITS | Encounter Summary ---
Author Organization [facility] Address [address] [place] [address] Phone Care Team Providers Care Insurance Auditor Name Role Phone Ciera Duncan MD Primary Care Provider + Gisela Ribera MD PhD Unavailable [phone] Rae Oviedo MD Unavailable +[phone] Lenora Gallo MD Unavailable [phone] Jil Mazariegos DPT Unavailable Ciera Duncan MD Primary Care Provider + Anabelle Villegas OT Unavailable [phone] Patrizia Arriaga DPT Unavail able Yolanda Brannon TOOL SUPERVISOR Unavailable [phone] Delroy Noel MD, Aquilino Nguyen Unavailable + Linda Marcial RN Unavailable Maame Mirian East MD Unavailable [phone] Roxanne Spring MD Unavailable [phone] Encounter Details Date Type Department Care Team (Latest Contact Info) Description 06/10/2020 Orders Only [facility] Scanning, [...] on file Legal Sex Female 10:00 AM GENETIC PHYSICIAN Gender Identity Female 06/21/2021 11:15 AM GENETIC PHYSICIAN Sexual Orientation Straight 12/04/2018 12 :10 PM [...] COVID: Suspected 09/07/2023 09/07/2023 09/07/2023 6:27 PM GENETIC PHYSICIAN documented as of this encounter Care Teams Insurance Auditor Relationship Specialty Start Date End Date Ciera Duncan MD PCP - General 08/16/17 07/13/20 Ciera Duncan MD PCP - General Family Medicine 07/16/20 Gisela Ribera MD PhD [address] [place] [address] Radiation Oncologist Radiation Oncology 11/10/18 Rae Oviedo MD [address] [place] [address] Surgeon Surgical Oncology 12/12/18 Lenora Gallo MD [address] [place] [address] Medical Oncologist/Veneer Repairer Machine Medical Oncology 01/07/19 02/05/23 Jil Mazariegos, DPT [address] [place] [address] [place] [address] Physical Therapist Physical Therapy 05/21/20 02/05/23 Anabelle Villegas OT [address] [place] [address] [place] [address] Occupational Therapist Occupational Therapy 07/26/20 1 08/16/20 Patrizia Arriaga, DPT [address] [place] [address] [place] [address] Physical Therapist Physical Therapy 07/26/20 02/05/23 Yolanda Brannon, TARA [address] [place] [address] [place] [address] Nurse Practitioner Nurse Practitioner 2/4/21 Aquilino Potts Jr., MD [address] [facility] [address] [place] [address] Consulting Physician Neurology 08/05/20 Linda Marcial, RN Registered Nurse Pulmonary Disease 09/06/22 Mirian Stratton MD Consulting Physician Cardiology 02/06/23 Roxanne Spring MD [address] [facility] [address] [place] [address] Referring Physician Pulmonary Disease 02/06/23 documented as of this encounter
--- OUTSIDE RECORDS SUMMARY | 2025-01-29 14:24 | XMS_ITS | Encounter Summary ---
Author Organization [facility] Address [address] [place] [address] Phone Care Team Providers Care Assembler Body Name Role Phone Gisela Ribera MD PhD Unavailable [phone] Rae Oviedo MD Unavailable Ciera Duncan MD Primary Care Provider + Yolanda Brannon RADIOLOGY ASST Unavailable Delroy Noel MD, Aquilino Nguyen Unavailable + Linda Marcial RN Unavailable Maame Mirian East MD Unavailable [phone] Roxanne Spring MD Unavailable [phone] Encounter Details Date Type Department Care Team [...] on file 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 Pts next session was week of 10/17 and week of 10/24. Pt psychiatric re-evaluation was 10/28 with ON HOLD order for 30 days while she went to [place] to return with both of her aging parents ([place], [place]); her next psychiatric re-evaluation is scheduled [...] documented as of this encounter Care Teams Assembler Body Relationship Specialty Start Date End Date Ciera Duncan MD [address] [place] [address] PCP - General Family Medicine 07/16/20 Gisela Ribera MD PhD [address] [place] [address] Radiation Oncologist Radiation Oncology 11/10/18 Rae Oviedo MD [address] [place] [address] Surgeon Surgical Oncology 12/12/18 Yolanda Brannon NP [address] [place] [address] Nurse Practitioner Nurse Practitioner 08/05/20 Aquilino Potts Jr., MD [address] [place] [address] Consulting Physician Neurology 08/05/20 Linda Marcial, RN Registered Nurse Pulmonary Disease 09/06/22 Mirian Stratton MD Consulting Physician Cardiology 02/06/23 Roxanne Spring MD [address] [place] [address] Referring Physician Pulmonary Disease 02/06/23 documented as of this encounter
--- OUTSIDE RECORDS SUMMARY | 2025-01-29 14:24 | XMS_ITS | Encounter Summary ---
Author Organization [facility] Healthcare Address [address] [place] [address] Care Team Providers Care Composition Floor Setter Name Role Phone Ciera Duncan MD Primary Care Provider + Gisela Ribera MD PhD Unavailable [phone] Rae Oviedo MD Unavailable [phone] Lenora Gallo MD Unavailable + [phone] Jil Mazariegos DPT Unavailable Ciera Duncan MD Primary Care Provider + Anabelle Villegas OT Unavailable [phone] Patrizia Arriaga DPT Unavail able Yolanda Brannon SAMPLE CASE PORTER Unavailable [phone] Delroy Noel MD, Aquilino Nguyen Unavailable + Linda Marcial RN Unavailable Maame Mirian East MD Unavailable [phone] Roxanne Spring MD Unavailable [phone] Encounter Details Date Type Department Care Team (Late st Contact Info) Description 01/09/2019 Telephone [facility] Radiation Oncology at [facility] [address] [place] [address] Amee Patterson MA Social History Tobacco Use [...] on file 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 Gender Identity Female 06/21/2021 11:15 AM DOOR OPERATOR Sexual Orientation Straight 12/04/2018 12 :10 PM CDT documented as of this encounter Plan of Treatment Not on file documented as of this encounter Visit Diagnoses Not on filedocumented in this encounter Additional Health Concerns Infection Onset Date Last Indicated Resolved Time COVID: Suspected 09/07/2023 09/07/2023 09/07/2023 6:27 PM DOOR OPERATOR documented as of this encounter Care Teams Composition Floor Setter Relationship Specialty Start Date End Date Ciera Duncan MD PCP - General 08/16/17 07/13/20 Ciera Duncan MD PCP - General Family Medicine 07/16/20 Gisela Ribera MD PhD [address] [place] [address] Radiation Oncologist Radiation Oncology 11/10/18 Rae Oviedo MD [address] [place] [address] Surgeon Surgical Oncology 12/12/18 Lenora Gallo MD [address] [facility] [address] [place] [address] Medical Oncologist/Dipping Machine Operator Medical Oncology 01/07/19 02/05/23 Jil Mazariegos, DPT [address] [facility] [address] [address] Physical Therapist Physical Therapy 05/21/20 02/05/23 Anabelle Villegas OT [address] [facility] [address] [address] Occupational Therapist Occupational Therapy 07/26/20 1 08/16/20 Patrizia Arriaga, DPT [address] [facility] [address] [address] Physical Therapist Physical Therapy 07/26/20 02/05/23 Yolanda Brannon, TARA [address] [facility] [address] [facility] [place] [address] Nurse Practitioner Nurse Practitioner 08/05/20 Aquilino Potts Jr., MD [address] [facility] [address] [address] Consulting Physician Neurology 08/05/20 Linda Marcial, SANDRA Registered Nurse Pulmonary Disease 09/06/22 Mirian Stratton MD Consulting Physician Cardiology 02/06/23 Roxanne Spring MD [address] [facility] [address] [place] [address] Referring Physician Pulmonary Disease 02/06/23 documented as of this encounter
--- OUTSIDE RECORDS SUMMARY | 2025-01-29 14:24 | XMS_ITS | Clinical Summary ---
Author Organization [facility] Address [address] [place] [address] Care Team Providers Care Lead Pressman Name Role Phone Gisela Ribera MD PhD Unavailable [phone] Rae Oviedo MD Unavailable [phone] Ciera Duncan MD Primary Care Provider + Yolanda Brannon CARTRIDGE ASSEMBLER Unavailable [phone] Delroy Noel MD, Aquilino Nguyen Unavailable + Linda Marcial RN Unavailable Maame Lacho East MD Unavailable Roxanne Spring MD Unavailable [phone] Allergies Active Allergy Reactions Criticality Noted Date Comments Adhesive Rash Medium 09/27/2017 Erythromycin Hives,Rash Medium 05/01/2011 Hives Uvpitllh-Fqoueqpanc-Xymb myxin Rash Medium 10/22/2018 Succinylcholine Other (See comments) Low 09/27/2017 Flu like symptoms - Made me miserable - couldn't hardly move for three days Muscle rigidity Plecanatide Diarrhea,Other (See comments),Stomach upset Low 06/13/2023 Causes explosive movements and impossibility to make it to the toilet. I also mess the bed. Vortioxetine Other (See comments) Low 08/30/2018 Flu like symptoms Medications mupirocin (BACTROBAN) 2 % ointmentIndicati ons:Minor Bacterial Skin Infections Apply 1 Application topically as needed 0 9 Active carboxymethyl/gl y/poly80/PF (REFRESH OPTIVE LASHONDA-3, PF, OPHT) Administer 1 Application into both eyes as needed 1 Active ALPRAZolam (XANAX) 0.25 mg tablet Take 1 tablet (0.25 mg total) by mouth nightly as needed for anxiety 1 Active fluticasone propionate (FLONASE) 50 mcg/actuation nasal spray Administer 2 sprays into each nostril daily 16 g 6 3 Active ascorbic acid-vitamin E-biotin (Hair, Skin, Nails with Biotin) 7.5-7.5-1,250 mg-unit-mcg tablet,chewable Take 1 tablet/chew tab by mouth every morning Crush medications for 2 weeks after surgery, after the 2 weeks may take whole pills 4 Active atorvastatin (LIPITOR) 20 mg tabletIndication s:hyperlipidemia Take 1 tablet (20 mg total) by mouth nightly Crush medications for 2 weeks after surgery, after the 2 weeks may take whole pills 4 Active cloNIDine (CATAPRES) 0.2 mg tabletIndication s:Vasomotor Symptoms associated with Menopause,can't take hormones and this helps Take 1 tablet (0.2 mg total) by mouth nightly Crush medications for 2 weeks after surgery, after the 2 weeks may take whole pills 4 Active levothyroxine (SYNTHROID) 50 mcg tabletIndication s:hypothyroidism Take 1 tablet (50 mcg total) by mouth director of early childhood education before breakfast Crush medications for 2 weeks after surgery, after the 2 weeks may take whole pills 4 Active montelukast (SINGULAIR) 10 mg tabletIndication s:Maintenance Therapy for Asthma Take 1 tablet (10 mg total) by mouth nightly Crush medications for 2 weeks after surgery, after the 2 weeks may take whole pills 4 Active buPROPion XL (WELLBUTRIN XL) 300 mg 24 hr tabletIndication s:Anxiety with Depression Take 1 tablet (300 mg total) by mouth every morning Medication not crushable , restart on 09/15 after you finish the crushable Wellbutrin 03/17/[address] (CYMBALTA) 60 mg capsuleIndicatio ns:Anxiety with Depression,major depressive disorder Take 1 capsule (60 mg total) by mouth every morning For 2 weeks after surgery, open capsule sprinkle medication in applesauce and take immediately, after the 2 weeks may take whole pills 4 Active aspirin 81 mg enteric coated tabletIndication s:prevention of thrombosis,prima ry prevention Take 1 tablet (81 mg total) by mouth nightly Restart on 09/15 after you finish the crushable/chewa ble Aspirin 4 Active ferrous sulfate (FeroSuL) 325 mg (65 mg of elemental iron) tablet Take 1 tablet (325 mg total) by mouth every morning Restart on 09/15 after you finish the liquid ferrous sulfate 4 Active albuterol HFA (PROVENTIL HFA,VENTOLIN HFA,PROAIR HFA) 90 mcg/actuation inhaler Inhale 2 puffs every 4 (four) hours as needed for wheezing 1 each 4 Active multivitamin tabletIndication s:Vitamin Deficiency Prevention Take 1 tablet by mouth daily Active vitamin K2 40 mcg tablet Take by mouth daily Active traMADoL (ULTRAM) 50 mg tablet Take 1 tablet (50 mg total) by mouth 2 (two) times a day 4 Active amLODIPine (NORVASC) 10 mg tablet Take 1 tablet (10 mg total) by mouth daily 90 tablet 3 5 07/22/19 26 Active bisoprolol (ZEBETA) 10 mg tablet Take 1 tablet (10 mg total) by mouth daily Crush medications for 2 weeks after surgery, after the 2 weeks may take whole pills 90 tablet 3 5 07/22/19 26 Active isosorbide mononitrate ER (IMDUR) 120 mg 24 hr tabletIndication s:prevention of anginal pain in coronary artery disease Take 1 tablet (120 mg total) by mouth nightly 90 tablet 3 5 07/22/19 26 Active topiramate (TOPAMAX) 25 mg tabletIndication s:Ataxia,Major depressive disorder, recurrent episode, mild,Long COVID TAKE 1 TABLET BY MOUTH TWICE A DAY 180 tablet 1 5 Active Active Problems Problem Noted Date Diagnosed Date Class 2 severe obesity due t o excess calories with serious comorbidity and body mass index (BMI) of 37.0 to 37.9 in adult 01/08/2025 Ataxia 02/01/2024 Abnormal MRI, breast 08/23/2023 Coronary artery disease invo lving [place] coronary artery of [place] heart with angina pectoris 07/31/2023 Agatston coronary artery calcium score between 2 00 and 399 07/31/2023 Hiatal hernia with GERD 07/04/2023 Dysphotopsia 06/14/2023 Assessment & Plan (06/14/2023 9:55 AM COMPUTER CONSOLE OPERATOR): Monovision with OS set for near. Wants [...] rehab. Assessment & Plan (08/30/2021 1:55 PM COMPUTER CONSOLE OPERATOR): Patient continue to use her Trelegy 1 inhalation once a day. Patient continue to use her albuterol inhaler as needed up to 4 times a day for shortness of breath. Pulmonary rehab if the shortness of breath is not related to a cardiac issue. Assessment & Plan (06/21/2021 3:04 PM COMPUTER CONSOLE OPERATOR): Patient will continue with Trelegy 1 puff daily, Singulair 10 mg daily and Flonase. I will refer her to see Dr. Nova in [place] for skin testing and possible Dupixent injections. She will follow-up with me in 2 months. SOPHY (obstructive sleep apnea) 03/24/2021 Assessment & Plan (12/06/2022 12:15 PM CDT): Intermittently non compliant with her mask. Would like to follow with sleep medicine at [facility]. Referral placed. Assessment & Plan (10/24/2021 10:06 AM CDT): Patient continue to wear CPAP in auto titrating range of 13-20 cm water pressure while sleeping. Her DME is [facility]. Assessment & Plan (08/30/2021 1:55 PM COMPUTER CONSOLE OPERATOR): Patient continue to wear her CPAP in auto titrating range of 13-20 cm water pressure while sleeping. Her DME is [employer]. Assessment & Plan (06/21/2021 3:05 PM COMPUTER CONSOLE OPERATOR): Patient is compliant with the auto titrating [...] will discuss her refractive needs with her hot wort settler Choroidal nevus of right eye 01/11/2021 Assessment [...] future. Assessment & Plan (05/08/2023 9:28 AM COMPUTER CONSOLE OPERATOR): She has significant visual difficulty associated with distance intermediate and near vision. This is complicated by her diplopia for which she uses prisms. She is currently using 3 pairs of glasses but her acuity still suboptimal. I have recommended that she see a low cable television installer at the [facility] low vision clinic. Discussed CNTF data Monovision [...] 12/03/2014 Assessment & Plan (08/30/2021 1:54 PM COMPUTER CONSOLE OPERATOR): I have ordered an iron and ferritin [...] depression 07/16/2020 10/07/2021 Moderate anxiety 07/16/2020 10/07/2021 [facility] current use of aromatase inhibitor 9 03/18/2019 Encounters Date Type Department Care Team Description 01/19/2025 10:47 AM CDT - 01/19/2025 11:59 PM CDT Hospital Encounter [facility] [address] [place], [place] [id number] History of breast cancer Discharge Disposition: Discharge to home or self care 01/19/2025 Results Follow-Up [facility] Surgery [address] [place] [phone] Lakisha Flowers NP MRI Breast Bilateral W WO Contrast 01/03/2025 Results Follow-Up [facility] Cardiology [address] [place] [phone] Lacho Carbone MD Transthoracic Echo (TTE) Complete W Doppler/CF 12/17/2024 10:29 AM CDT - 12/17/2024 11:59 PM CDT Hospital Encounter [facility] Cardiac Diagnostic Lab [address] [facility] 8th [place] [phone] Aortic valve sclerosis Discharge Disposition: Discharge to home or self care 12/04/2024 11:30 AM CDT Office Visit [facility] Cardiology [facility] 8th [place] [phone] Lacho Carbone MD Long KANDIID (Primary Dx); Bicuspid aortic valve; Essential hypertension; Aortic valve sclerosis; Mixed hyperlipidemia; Shortness of breath 11/17/[address] [facility] Neurology [address] [place] [address] Veronica Sanchez 11/14/[address] [facility] Transplant Heart [address] [facility] [facility] [address] Mailstop [id number] [place] [address] Ligia Yarbrough 11/10/2024 3:00 PM CDT Office Visit [facility] Pulmonary [address] [facility] [address]th [place] [address] [place] [address] Roxanne Spring MD Dyspnea, unspecified type (Primary Dx); Long COVID 11/07/2024 Telephone [facility] [address] [place] [phone] Jorge Luis Louis, COOKER CLEANER 11/04/2024 Telephone [facility] Diagnostic [place] [address] [place] [phone] Jorge Luis Louis, COOKER CLEANER 11/03/2024 1:30 PM CDT Office Visit [place] [id number] [facility] 6th [place] [address] [place] [address] Kalen Cline MD Major depressive disorder, recurrent episode, mild (Primary Dx); Long COVID; Memory problem 10/31/2024 10:00 AM CDT Office Visit [facility] Neurology [facility] 6th [address] [place] [phone] MD Ataxia (Primary Dx); Major depressive disorder, recurrent episode, mild; Long COVID; Malignant neoplasm of central portion of right breast in female, estrogen receptor positive (HCC) from Last 3 Months Immunizations Immunization Administration [...] Tinnitus Neck pain Kidney stone Breast cancer ([facility]) 2018 Tachycardia Parafoveal telangiectasia, t ype I, bilateral 01/07/2019 Depression Covid-19 12/2019 SOPHY on CPAP Heart murmur Hypertension CHF (congestive heart failur e) ([facility]) Rbbb Severe episode of recurrent major depressive disorder, without psychotic features ([facility]) 12/30/2020 Recurrent major depression i n partial [...] Sister 2 Maternal Grandfather Carlos Maternal Grandmother Lisbte Mother Ling Alive Paternal Grandfather Sidney Paternal Grandmother Yaneth Social History Tobacco Use Types Packs/Day Years Used Date Smoking Tobacco: Former Cigarettes 0.3 8 0 07/02/1990 - 07/02/1998 Smokeless Tobacco: Never Tobacco Cessation:Counseling Given: No Comments:Social smoker. Quit 1998 Alcohol Use Standard [...] on file Legal Sex Female 10:00 AM COMPUTER CONSOLE OPERATOR Gender Identity Female 06/21/2021 11:15 AM COMPUTER CONSOLE OPERATOR Sexual Orientation Straight 12/04/2018 12 :10 PM CDT Obstetrics History Last Filed Vital Signs Vital Sign Reading Time Taken Comments Blood Pressure 97/50 12/04/2024 12:31 PM CDT Pulse 62 12/04/2024 12:31 PM CDT Temperature 36.6 C (97.9 F) 11/10/2024 3:06 PM CDT Respiratory Rate 16 11/10/2024 3:06 PM CDT Oxygen Saturation 100% 12/04/2024 12:31 PM CDT Inhaled Oxygen Concentration - - Weight 97.5 kg (215 lb) 01/19/2025 10:59 AM CDT Height 165.1 cm (5' 5) 01/19/2025 10:59 AM CDT Body Mass Index 35.78 01/19/2025 10:59 AM CDT Plan of Treatment Health Maintenance Due Date Last Done Comments Hepatitis C Screening 1960 Hepatitis B Screening 1980 Regular Well Visit/Exam 18-64 1980 Pneumococcal vaccine <65 (2 of 2 - PCV) 09/16/2021 09/16/2020 Depression Screening 07/28/2022 07/28/2021, 07/28/19 22 Covid-19 Vaccine (2023-2 5 season) 2024 04/13/2022, 04/28/2021, 08/03/2020, Additional history exists Influenza Vaccine (#1) 2025 , 07/05/2023, 04/25/2021, Additional history exists Breast Cancer Screening-Mammogram 07/22/2025 07/22/2024, 07/18/2023, 07/18/2023, Additional history exists Colon Cancer Screening-Colonoscopy 09/20/2030 09/20/2020 DTaP/Tdap/Td Vaccine (2 - Td or Tdap) 02/10/2031 02/10/2021 Colon Cancer Screening-CT Colonography Discontinued 09/20/2020 Colon Cancer Screening-DNA Stool Discontinued 09/21/19 Colon Cancer Screening-FIT Discontinued 09/20/2020 Colon Cancer Screening-Sigmoidoscopy Discontinued 09/20/2020 Zoster Vaccine Completed 09/26/2021, 05/19/2021 Goals Goal Patient Goal Type Associated Problems [...] Problems with Health Conditions No Anabelle Tanner, COOKER CLEANER Note: New Extended Expected End Date 07/07/2022 [...] Satisfaction with Living Conditions No Anabelle Tanner, COOKER CLEANER Note: New Extended Expected End Date 07/07/2022 [...] for example) she is asking for a [place] present from a family member to complete the task. 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 This goal will support her to identify 3 ways in which she can improve the satisfaction level of her current living conditions (recall Pt lives alone in her own home, and Parents live relatively close in their own home). Medical Devices Implanted Type Area Rvda Master Certified Rv Technician Device Identifier Shelf Expiration Date Model / Serial / Lot [employer] Angio-Seal Vip 6fr Closere Device [id number] - [id number] - [id number] Implanted:Qty: 1 on 08/13/2023 by Quincy Hoyos MD at [facility] Vascular Closure Device [employer] 05/01/2024 [id number] / [id number] / [id number] Rt Breast Biopsy Marker/Clip Implanted:08/30 (Quantity not on file) Right: Breast iMOSPHERE [facility] Trimark Mri Guided Rigid Deployment Device Cork Marker Breast [employer] Td 13-Mr - [id number] Implanted:Qty: 1 on 01/26/2023 at [facility] Right: Breast [employer] [id number] 02/28/2023 TRIMARK TD 13-MR / / [id number] Procedures Procedure Name Priority Date/Time Associated Diagnosis Comments MRI BREAST BILATERAL W WO CONTRAST Schedule Routine, Read Routine (OP Routine) 01/19/2025 12:05 PM CDT History of breast cancer TRANSTHORACIC ECHO (TTE) COMPLETE W DOPPLER/CF W CONTRAST Routine 12/17/2024 12:59 PM CDT Aortic valve sclerosis SCREENING MAMMOGRAM BILATERAL W CHAITANYA Schedule Routine, Read Routine (OP Routine) 07/22/2024 12:26 PM COMPUTER CONSOLE OPERATOR Encounter for follow-up examination after completed treatment for malignant neoplasm Encounter for screening mammogram for malignant neoplasm of breast COLONOSCOPY 09/20/2020 11:07 AM CDT from Last 3 Months or Most Recently Relevant to Health Maintenance Results * MRI Breast Bilateral W WO Contrast (01/19/2025 12:05 PM CDT) Anatomical Region Laterality Modality Breast Bilateral Magnetic Resonan ce 01/19/2025 2:47 PM CDT Impressions 01/19/2025 3:00 PM CDT 1. Evolving changes of biopsy-proven fat necrosis adjacent to the lumpectomy site at the slightly upper inner RIGHT breast. 2. No MR evidence of malignancy in EITHER breast. OVERALL FINAL ASSESSMENT: BI-RADS Category 2: Benign. RECOMMENDATION: Annual screening mammography, with screening breast MRI if clinically indicated, are recommended. Dictated by: Jose L Acosta M.D. The radiology attending physician has personally reviewed this study, and had reviewed and/or edited this written report and agrees with it. Electronically signed by: BARRIE RG MD Narrative 01/19/2025 3:00 PM CDT EXAMINATION: 1. MRI EXAMINATION OF THE BREASTS WITH AND WITHOUT CONTRAST 2. 3D POST PROCESSING ON A DEDICATED 3D WORKSTATION HISTORY: High-risk Screening. 64-year-old woman with history of RIGHT breast invasive mucinous carcinoma status post breast conservation therapy in 2019. She is status post biopsy of the RIGHT slightly inner central breast on 01/26/2023 which demonstrated fat necrosis. Of note, she presented with a new RIGHT breast lump and tenderness on 09/17/2024 and was found to have a focal asymmetry in the upper outer RIGHT breast which was favored to represent evolving fat necrosis/postsurgical change. TECHNIQUE: MRI examination of the breasts per breast tumor protocol with and without gadolinium contrast. A dedicated breast imaging coil was used. The images were transferred to a breast CAD system for 3D post processing and contrast kinetics analysis. CONTRAST: Gadoterate meglumine, 18 ml COMPARISON: Multiple prior breast MR, dating back to 2020, most recently 02/04/2024. Diagnostic mammography and ultrasound right breast from 09/17/2024. BREAST COMPOSITION: Scattered fibroglandular tissue BACKGROUND PARENCHYMAL ENHANCEMENT: Mild FINDINGS: Stable changes of slightly upper inner RIGHT breast conservation therapy are noted with evolving findings of biopsy-proven fat necrosis adjacent to the lumpectomy cavity. Moderate residual enhancement at the lumpectomy site is favored to be reactive. Overall, the surgical site appears stable compared to multiple prior examinations. No new suspicious enhancing mass or non-mass enhancement EITHER breast. No abnormally enlarged lymph nodes are identified in the visualized portions of either axilla. Again noted is linear atelectasis in the right middle lobe. us Lakisha Flowers NP IMG MRI PROCEDURES Final R esult * TRANSTHORACIC ECHO (TTE) COMPLETE W DOPPLER/CF W CONTRAST (12/17/2024 12:59 PM CDT) EF Mod BP 56 % CONS SCIMAGE Anatomical Region Laterality Modality Ultrasound 12/17/2024 11:0 2 AM CDT Narrative 12/17/2024 1:26 PM CDT [facility] Cardiac [place] [address] Transthoracic Echocardiographic Report Patient Name: ANA LILIA MYERS R : 1960 (64y 7m) Gender: F Study Date: 12/17/2024 11:02:16 AM Ht(Inch): 65 Wt(Lb): 225.09 BSA: 2.16 Cut And Print Machine Operator: Eligio Frausto RDCS Location: [facility] Order Provider: LACHO CARBONE Heart Rate: 68 BMI: 37.45 BP: 131 / 80 Ref Provider: LACHO CARBONE PROCEDURES: Echocardiographic Report: Transthoracic complete echo with strain imaging and contrast, 2D, spectral and tissue Doppler, color flow Doppler, M-mode. Contrast: Contrast Enhancement was Employed: After initial imaging due to sub- optimal quality related to co-morbidity defined by patient's body habitus, due to suboptimal image quality with inadequate visualization of at least 2 of 16 LV wall segments in any view after initial imaging. Perflutren contrast was administered using the volume necessary to obtain adequate images and. 0.15 ml Definity Administered, (1.35 ml wasted). INDICATIONS: I35.8 Other nonrheumatic aortic valve disorders. CONCLUSIONS: 1. Normal left ventricular size based on volume index. Concentric LV remodeling. Normal left ventricular systolic function. The Ejection Fraction (Oliveira's) is measured at 56 %. The average global longitudinal strain is borderline. 2. Normal right ventricular size. Normal right ventricular systolic function. ATTESTATION: I have personally reviewed and interpreted this study without fellow or resident. - DISCLAIMER: The study images and the final report will be retained in the patient chart by the Echo Laboratory for the legally required time period. This chart constitutes the legal record of any testing performed. FINDINGS: Left Ventricle: Normal left ventricular size based on volume index. Concentric LV remodeling. Normal left ventricular systolic function. The Ejection Fraction (Oliveira's) is measured at 56 %. The average global longitudinal strain is borderline. The LV global strain is: -17.3 %. Right Ventricle: Normal right ventricular size. Normal right ventricular systolic function. Left Atrium: The left atrium is normal in size. Right Atrium: The right atrium is normal in size. Mitral Valve: Normal mitral valve structure. No mitral regurgitation. No stenosis present. Aortic Valve: Possible bicuspid aortic valve. Mildly thickened aortic valve leaflets. The mean transaortic gradient is 8 mmHg. The aortic valve area by the continuity equation (using VTI) is 1.76 cm2. Aortic valve dimensionless index is 0.59. Tricuspid Valve: Normal tricuspid valve structure. No tricuspid regurgitation. No tricuspid valve stenosis. Pulmonic Valve: Normal pulmonic valve structure. No pulmonic regurgitation. No pulmonic valve stenosis present. Pericardium: Normal pericardium without pericardial effusion. Aorta: Mild aortic root dilation at sinuses of Valsalva. Normal aortic root size when indexed. The ascending aorta is normal in size when indexed. Moderate fibrocalcific change of the aortic root, consistent with atherosclerosis. PASP: Normal estimated pulmonary artery systolic pressure. Rhythm: Normal Sinus rhythm was seen during the study. MEASUREMENTS: 2D/MM Value Range Doppler Value Range LVIDd 2D 4.53 cm [ 3.80 - 5.20 ] AV Peak Niranjan 1.9 m/s [ 1.0 - 1.7 ] LVIDs 2D 2.93 cm [ 2.20 - 3.50 ] AV Peak PG 14.44 mmHg IVSd 2D 1.01 cm [ 0.60 - 0.90 ] AV Mean PG 8 mmHg LVPWd 2D 1.01 cm [ 0.60 - 0.90 ] AV VTI 37.2 cm LV Thickness Ratio 1.0 LVOT Peak Niranjan 1.1 m/s [ 0.7 - 1.1 ] LV FS 2D 35.35 % [ 27.00 - 45.00 ] LVOT Peak PG 4.84 mmHg LV Mass 2D 160.03 g LVOT Mean PG 3 mmHg LV Mass Index 2D 74.09 g/m2 LVOT VTI 22.1 cm RWT 0.45 LVOT Diam 1.94 cm EDV Mod BP 91.14 ml [ 46.00 - 106.00 ] KRYSTINA VTI 1.76 cm2 LV EDV Index 42.19 ml/m2 LVOT/AV VTI 0.59 - Dimensionless index (DVI) ESV Mod BP 40.52 ml [ 14.00 - 42.00 ] MV E Peak Niranjan 0.6 m/s [ 0.6 - 1.3 ] EF Mod BP 56 % [ 54 - 74 ] MV A Peak Niranjan 0.6 m/s [ 1.0 - 1.2 ] LV GLS -17.3 % [ -25.0 - -18.0 ] MV E/A 1.0 ratio [ 0.8 - 1.5 ] LA Length 4C 5.20 cm MV Decel Time 295.84 msec [ 104.00 - 258.00 ] LA Length 2C 4.46 cm Med E` Niranjan 6.2 cm/sec [ 8.0 - 25.0 ] LA Volume BP 45.90 ml Lat E` Niranjan 9.9 cm/sec [ 10.0 - 25.0 ] LA Volume Index 21.25 ml/m2 [ 16.00 - 34.00 ] Average E/E` 7.45 RV Base Dimen 2D 3.2 cm [ 2.5 - 4.2 ] RV S` 11.01 cm/sec TAPSE 2.02 cm [ 1.71 - 5.00 ] RA Volume 36.92 ml RA Volume Index 17.09 ml/m2 AoR Diam 2D 3.40 cm [ 2.70 - 3.70 ] Ao Root Index 1.57 cm/m2 [ 1.00 - 2.00 ] Asc Ao Diam 2D 4.01 cm Asc Ao Index 1.86 cm/m2 Electronically Signed By: Sujit aRy MD 12/17/2024 1:25:58 PM CDT Procedure Note Sujit Ray MD - 12/17/2024 [facility] Cardiac [place] [address] [place] [address] Transthoracic Echocardiographic Report Patient Name: ANA LILIA MYERS R : 1960 (64y 7m) Gender: F Study Date: 12/17/2024 11:02:16 AM Ht(Inch): 65 Wt(Lb): 225.09 BSA: 2.16 Cut And Print Machine Operator: Eligio Frausto RDCS Location: [facility] Order Provider:LACHO CARBONE Heart Rate: 68 BMI: 37.45 BP: 131 / 80 Ref Provider: LACHO CARBONE PROCEDURES: Echocardiographic Report: Transthoracic complete echo with strain imagingand contrast, 2D, spectral and tissue Doppler, color flow Doppler, M-mode. Contrast: Contrast Enhancement was Employed: After initial imaging due tosub- optimal quality related to co-morbidity defined by patient's body habitus, due tosuboptimal image quality with inadequate visualization of at least 2 of 16 LV wallsegments in any view after initial imaging. Perflutren contrast was administered using thevolume necessary to obtain adequate images and. 0.15 ml Definity Administered,(1.35 ml wasted). INDICATIONS: I35.8 Other nonrheumatic aortic valve disorders. CONCLUSIONS: 1. Normal left ventricular size based on volume index. Concentric LVremodeling. Normal left ventricular systolic function. The Ejection Fraction (Oliveira's) ismeasured at 56 %. The average global longitudinal strain is borderline. 2. Normal right ventricular size. Normal right ventricular systolicfunction. ATTESTATION: I have personally reviewed and interpreted this study without fellow orresident. - DISCLAIMER: The study images and the final report will be retained in the patientchart by the [facility] for the legally required time period. This chart constitutesthe legal record of any testing performed. FINDINGS: Left Ventricle: Normal left ventricular size based on volume index.Concentric LV remodeling. Normal left ventricular systolic function. The EjectionFraction (Oliveira's) is measured at 56 %. The average global longitudinal strain is borderline.The LV global strain is: -17.3 %. Right Ventricle: Normal right ventricular size. Normal right ventricularsystolic function. Left Atrium: The left atrium is normal in size. Right Atrium: The right atrium is normal in size. Mitral Valve: Normal mitral valve structure. No mitral regurgitation. Nostenosis present. Aortic Valve: Possible bicuspid aortic valve. Mildly thickened aorticvalve leaflets. The mean transaortic gradient is 8 mmHg. The aortic valve area by thecontinuity equation (using VTI) is 1.76 cm2. Aortic valve dimensionless index is 0.59. Tricuspid Valve: Normal tricuspid valve structure. No tricuspidregurgitation. No tricuspid valve stenosis. Pulmonic Valve: Normal pulmonic valve structure. No pulmonicregurgitation. No pulmonic valve stenosis present. Pericardium: Normal pericardium without pericardial effusion. Aorta: Mild aortic root dilation at sinuses of Valsalva. Normal aorticroot size when indexed. The ascending aorta is normal in size when indexed. Moderatefibrocalcific change of the aortic root, consistent with atherosclerosis. PASP: Normal estimated pulmonary artery systolic pressure. Rhythm: Normal Sinus rhythm was seen during the study. MEASUREMENTS: 2D/MM Value Range DopplerValue Range LVIDd 2D 4.53 cm [ 3.80 - 5.20 ] AV Peak Vel1.9 m/s [ 1.0 - 1.7 ] LVIDs 2D 2.93 cm [ 2.20 - 3.50 ] AV Peak PG14.44 mmHg IVSd 2D 1.01 cm [ 0.60 - 0.90 ] AV Mean PG8 mmHg LVPWd 2D 1.01 cm [ 0.60 - 0.90 ] AV VTI37.2 cm LV Thickness Ratio 1.0 LVOT Peak Vel1.1 m/s [ 0.7 - 1.1 ] LV FS 2D 35.35 % [ 27.00 - 45.00 ] LVOT Peak PG4.84 mmHg LV Mass 2D 160.03 g LVOT Mean PG3 mmHg LV Mass Index 2D 74.09 g/m2 LVOT VTI22.1 cm RWT 0.45 LVOT Diam1.94 cm EDV Mod BP 91.14 ml [ 46.00 - 106.00 ] KRYSTINA VTI1.76 cm2 LV EDV Index 42.19 ml/m2 LVOT/AV VTI0.59 - Dimensionless index (DVI) ESV Mod BP 40.52 ml [ 14.00 - 42.00 ] MV E Peak Vel0.6 m/s [ 0.6 - 1.3 ] EF Mod BP 56 % [ 54 - 74 ] MV A Peak Vel0.6 m/s [ 1.0 - 1.2 ] LV GLS -17.3 % [ -25.0 - -18.0 ] MV E/A1.0 ratio [ 0.8 - 1.5 ] LA Length 4C 5.20 cm MV Decel Kygk610.84 msec [ 104.00 - 258.00 ] LA Length 2C 4.46 cm Med E` Vel6.2 cm/sec [ 8.0 - 25.0 ] LA Volume BP 45.90 ml Lat E` Vel9.9 cm/sec [ 10.0 - 25.0 ] LA Volume Index 21.25 ml/m2 [ 16.00 - 34.00 ] Average E/E`7.45 RV Base Dimen 2D 3.2 cm [ 2.5 - 4.2 ] RV S`11.01 cm/sec TAPSE 2.02 cm [ 1.71 - 5.00 ] RA Ogwzjx86.92 ml RA Volume Index17.09 ml/m2 AoR Diam 2D 3.40 cm [ 2.70 - 3.70 ] Ao Root Index 1.57 cm/m2 [ 1.00 - 2.00 ] Asc Ao Diam 2D4.01 cm Asc Ao Index1.86 cm/m2 Electronically Signed By: Sujit Ray MD 12/17/2024 1:25:58 PM CDT Lacho Carbone MD CV ECHO PROCEDURES Danitza l Result * Screening Mammogram Bilateral W Chaitanya (07/22/2024 12:26 PM COMPUTER CONSOLE OPERATOR) Anatomical Region Laterality Modality Breast Bilateral Mammography Narrative 07/23/2024 12:20 PM COMPUTER CONSOLE OPERATOR Mammogram Technique: Bilateral Digital Breast Tomosynthesis, Bilateral C-view 2D Screening mammogram. Views obtained: bilateral craniocaudal and bilateral mediolateral oblique. Computer Aided Detection was performed. Mammogram Findings: The present examination has been compared to prior imaging studies performed at [facility] on 11/25/2019, 07/10/2022 and 07/18/2023. There are [...] compared to prior imaging studies performed at [facility] on 11/25/2019, 07/10/2022 and 07/18/2023. There are scattered areas of fibroglandular density. There are post breast conservation therapy changes in the right breast. There is no suspicious abnormality in either breast. Impression: There is no mammographic evidence of malignancy. Annual screening mammography is recommended. OVERALL FINAL ASSESSMENT: BI-RADS CATEGORY 2: Benign. Elizabeth Kirby NP IMG MAMMO PROCEDURES Fin al Result * COLONOSCOPY (09/20/2020 11:07 AM CDT) Anatomical Region Laterality Modality Other Narrative Procedure Note Ayden Andrade MD - 09/20/2020 11:07 AM CDT [facility] Patient Name: Ana Lilia Myers Procedure Date: 09/20/2020 11:07 AM Date of : 1960 Admit Type: Outpatient Age: 60 Gender: Female Attending MD: Ayden Andrade M.D. Room: [facility] ENDOSCOPY ROOM 8 Note Status: Finalized Procedure: Colonoscopy Indications: Change in bowel habits, Weight loss Referring MD: Yolanda Brannon AGPCNP Providers: Ayden Andrade M.D., Sammy Crane M.D. [...] scope was passed under direct vision.The CF [id number] endoscope was introduced through the anus and advanced to the terminal ileum. The colonoscopy was performed without difficulty. The patient tolerated the procedure well. The qualityof the bowel preparation was evaluated using the BBPS (Salvo Bowel Preparation Scale) with scores of:Right Colon [...] On: 09/20/2020 11:07 AM Recognized by the [place] [employer] for Gastrointestinal Endoscopy for promoting quality [...] for listed symptoms of Depression, and Chronic Ktyq-Uqkpnfoiu-Kggfbl-Disorder, in order to report improved management of [...] for listed symptoms of Depression, and Chronic Bpie-Dzojzhist-Qfojuw-Disorder, in order to report improved management of [...] individual only for 3x; Tx Order from Drawer In Stitch Bonding Machine/Psychiatrist to 1D/Wk Group Psychotherapy & 1Ind/@ 2wks 10/07. Pts next session was week of 10/17 and week of 10/24. Pt psychiatric re-evaluation was 10/28 with ON HOLD order for 30 days while she went to [place] to return with both of her aging parents ([place], [place]); her next psychiatric re-evaluation is scheduled [...] Completed 11/03/2021 Due Date: 10/19/2021 Responsible User: CiroAnabelle, [facility] Insurance CHOICE PRF P[place] MEDICARE [facility] [place] MED[place]ARE [place] Member Subscriber Plan / Payer (Ef fective 2023-) Name:Katelyn, Ana Lilia Cabello Relation to Subscriber:Self Name:Ana Lilia Myers Destiney Payer ID:[id number] Group ID:Not on file Type:COMMERCIAL Address: [facility] [address] [place], [place] [address] [employer] CLAIMS OFFICE PHYSICIANS [place] [facility] [place] Advance Directives For more information, please contact: [phone] Documents on File Type Date Recorded Patient Residential Interior Designer Expl anation ADVANCE DIRECTIVE 10/23/2018 7:19 PM POWER OF PROFESSIONAL DEVELOPMENT INSTRUCTOR-MEDICAL * Full Code (Latest Code Status on [...] 2:34 PM 10/22/2018 4:54 PM Care Teams Lead Pressman Relationship Specialty Start Date End Date Ciera Duncan MD [address] [facility] [address] [place] [address] PCP - General Family Medicine 07/16/20 Gisela Ribera MD PhD [address] [place] [address] Radiation Oncologist Radiation Oncology 11/10/18 Rae Oviedo MD [address] [place] [address] Surgeon Surgical Oncology 12/12/18 Yolanda Brannon, CARTRIDGE ASSEMBLER [address] [place] [address] Nurse Practitioner Nurse Practitioner 08/05/20 Aquilino Potts Jr., MD [address] [place] [address] Consulting Physician Neurology 08/05/20 Linda Marcial, RN Registered Nurse Pulmonary Disease 09/06/22 Lacho Carbone MD Consulting Physician Cardiology 02/06/23 Roxanne Spring MD [address] [place] [address] Referring Physician Pulmonary Disease 02/06/23
--- OUTSIDE RECORDS SUMMARY | 2025-01-29 14:24 | XMS_ITS | Referral Summary ---
Author Organization [facility] Address [address] [place] [id number] Care Team Providers Care Appraisal Analyst Name Role Phone Gisela Ribera MD PhD Unavailable Rae Oviedo MD Unavailable Ciera Duncan MD Primary Care Provider + Yolanda Brannon NP Unavailable Delroy Noel MD, Aquilino Nguyen Unavailable + Linda Marcial RN Unavailable Maame Lacho East MD Unavailable Roxanne Spring MD Unavailable Encounters Date Type Department Care Team Description 01/19/2025 Results Follow-Up [facility] Surgery [address] [facility] Floor 8 [place] [address] Lakisha Flowers NP MRI Breast Bilateral W WO Contrast 01/19/2025 10:47 AM CDT - 01/19/2025 11:59 PM CDT Hospital Encounter [facility] Radiology [facility] [address] [place] [id number] History of breast cancer Discharge Disposition: Discharge to home or self care 01/03/2025 Results Follow-Up [facility] Cardiology [address] [facility] [address] [place] [address] Lacho Carbone MD Transthoracic Echo (TTE) Complete W Doppler/CF 12/17/2024 10:29 AM CDT - 12/17/2024 11:59 PM CDT Hospital [facility] Cardiac Diagnostic Lab [address] [facility] [address] [place] [phone] Aortic valve sclerosis Discharge Disposition: Discharge to home or self care 12/04/2024 11:30 AM CDT Office Visit [facility] Cardiology [address] [facility] 8th [place] [address] [place] [phone] Lacho Carbone MD Long COVID (Primary Dx); Bicuspid aortic valve; Essential hypertension; Aortic valve sclerosis; Mixed hyperlipidemia; Shortness of breath 11/17/2024 Telephone [facility] Neurology [address] [facility] [address] [place] [address] Veronica Sanchez 11/14/2024 Telephone [facility] and [facility] Transplant Heart [address] [facility] [phone] [place] [address] Ligia Yarbrough 11/10/2024 3:00 PM CDT Office Visit [facility] Pulmonary [address] [facility] 8th [place] [address] [place] [phone] Roxanne Spring MD Dyspnea, unspecified type (Primary Dx); Long COVID 11/07/2024 Telephone [facility] Memory Diagnostic Center [facility] [facility] First Floor [address] [place] [address] Jorge Luis Louis LCSW 11/04/2024 Telephone [facility] Memory Diagnostic Center [facility] [facility] First Floor [address] [place] [address] Jorge Luis Louis LCSW 11/03/2024 1:30 PM CDT Office Visit [facility] Diagnostic Center [facility] [facility] 6th [place] [address] [place] [phone] Kalen Cline MD Major depressive disorder, recurrent episode, mild (Primary Dx); Long COVID; Memory problem 10/31/2024 10:00 AM CDT Office Visit [facility] Neurology [address] [facility] 6th [place] [address] [place] [phone] MD Ataxia (Primary Dx); Major depressive disorder, recurrent episode, mild; Long COVID; Malignant neoplasm of central portion of right breast in female, estrogen receptor positive (HCC) from Last 3 Months Allergies Active Allergy Reactions Criticality Noted Date Comments Adhesive Rash Medium 09/27/2017 Erythromycin Hives,Rash Medium 05/01/2011 Hives Ehjeaehf-Rcaxyionzj-Qkcn myxin Rash Medium 10/22/2018 Succinylcholine Other (See [...] 1 tablet (50 mcg total) by mouth outpatient facility physical therapist before breakfast Crush medications for 2 weeks [...] 09/15 after you finish the crushable Wellbutrin [address] (CYMBALTA) 60 mg [...] breast 08/23/2023 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 Wants [...] rehab. Assessment & Plan (08/30/2021 1:55 PM SEX OFFENDER TREATMENT PROFESSIONAL): Patient continue to use her Trelegy 1 inhalation once a day. Patient continue to use her albuterol inhaler as needed up to 4 times a day for shortness of breath. Pulmonary rehab if the shortness of breath is not related to a cardiac issue. Assessment & Plan (06/21/2021 3:04 PM SEX OFFENDER TREATMENT PROFESSIONAL): Patient will continue with Trelegy 1 puff daily, Singulair 10 mg daily and Flonase. I will refer her to see Dr. Nova in [place] for skin testing and possible Dupixent injections. She will follow-up with me in 2 months. SOPHY (obstructive sleep apnea) 03/24/2021 Assessment & Plan (12/06/2022 12:15 PM CDT): Intermittently non compliant with her mask. Would like to follow with sleep medicine at [facility]. Referral placed. Assessment & Plan (10/24/2021 10:06 AM CDT): Patient continue to wear CPAP in auto titrating range of 13-20 cm water pressure while sleeping. Her DME is [facility]. Assessment & Plan (08/30/2021 1:55 PM SEX OFFENDER TREATMENT PROFESSIONAL): Patient continue to wear her CPAP in auto titrating range of 13-20 cm water pressure while sleeping. Her DME is [facility]. Assessment & Plan (06/21/2021 3:05 PM SEX OFFENDER TREATMENT PROFESSIONAL): Patient is compliant with the auto titrating [...] will discuss her refractive needs with her cylindrical mixer Choroidal nevus of right eye 01/11/2021 Assessment [...] future. Assessment & Plan (05/08/2023 9:28 AM SEX OFFENDER TREATMENT PROFESSIONAL): She has significant visual difficulty associated with distance intermediate and near vision. This is complicated by her diplopia for which she uses prisms. She is currently using 3 pairs of glasses but her acuity still suboptimal. I have recommended that she see a low division order technician at the [facility] low vision clinic. Discussed CNTF data [...] from 10/31/2018:Stage IA(cT1, cN0, cM0, G2, ER+, KS+, HER2-) - Signed by Gisela Ribera MD PhD on 11/10/2018 Pathologic:Stage IA(pT1b, pN0, cM0, G2, ER+, KS+, HER2-) - Signed by Gisela Ribera MD PhD on 11/10/2018 Breast cancer screening, high risk patient 08/30 Hiatal hernia 09/21/2017 Elbow pain 12/03/2014 Assessment & Plan (08/30/2021 1:54 PM SEX OFFENDER TREATMENT PROFESSIONAL): I have ordered an iron and ferritin [...] on file Legal Sex Female 10:00 AM SEX OFFENDER TREATMENT PROFESSIONAL Gender Identity Female 06/21/2021 11:15 AM SEX OFFENDER TREATMENT PROFESSIONAL Sexual Orientation Straight 12/04/2018 12 :10 PM [...] 01/19/2025 10:59 AM CDT Plan of Treatment Not on [...] Problems with Health Conditions No Anabelle Tanner, JOINERY FACTORY WORKER Note: New Extended Expected End Date [...] Satisfaction with Living Conditions No Anabelle Tanner, JOINERY FACTORY WORKER Note: New Extended Expected End Date [...] for example) she is asking for a [place] present from a family member to complete the task. 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 This goal will support her to identify 3 ways in which she can improve the satisfaction level of her current living conditions (recall Pt lives alone in her own home, and Parents live relatively close in their own home). Medical Devices Implanted Type Area Dock Guard Device Identifier Shelf Expiration Date Model / Serial / Lot TerAPProtect Medical Enmanuel Angio-Seal Vip 6fr Closere Device [id number] - [id number] - [id number] Implanted:Qty: 1 on 08/13/2023 by Quincy Hoyos MD at [facility] Vascular Closure Device Terum[employer] Medical Enmanuel 05/01/2024 [id number] / [id number] / [id number] Breast Biopsy Marker/Clip Implanted:08/30 (Quantity not on file) Right: Breast mobifriends Limited Partnership Trimark Mri Guided Rigid Deployment Device Cork Marker Breast Trimark Td 13-Mr - [id number] Implanted:Qty: 1 on 01/26/2023 at [facility] Right: Breast [employer] [id number] 02/28/2023 TRIMARK TD 13-MR / / [id number] Procedures Procedure Name Priority Date/Time Associated Diagnosis Comments MRI BREAST BILATERAL W WO CONTRAST Schedule Routine, Read Routine (OP Routine) 01/19/2025 12:05 PM CDT History of breast cancer TRANSTHORACIC ECHO (TTE) COMPLETE W DOPPLER/CF W CONTRAST Routine 12/17/2024 12:59 PM CDT Aortic valve sclerosis SCREENING MAMMOGRAM BILATERAL W CHAITANYA Schedule Routine, Read Routine (OP Routine) 07/22/2024 12:26 PM SEX OFFENDER TREATMENT PROFESSIONAL Encounter for follow-up examination after completed treatment [...] AM CDT Narrative 12/17/2024 1:26 PM CDT [facility] [place]iac [place] [address] Transthoracic Echocardiographic Report Patient Name: ANA LILIA MYERS R : 1960 (64y 7m) Gender: F Study Date: 12/17/2024 11:02:16 AM Ht(Inch): 65 Wt(Lb): 225.09 BSA: 2.16 Ultrasound Technol: Eligio Frausto RDCS Location: [facility] Order Provider: LACHO CARBONE Heart Rate: 68 [...] Index 1.86 cm/m2 Electronically Signed By: Sujit Ray MD 12/17/2024 1:25:58 PM CDT Procedure Note Sujit Ray MD - 12/17/2024 [facility] [place] [address] Transthoracic Echocardiographic Report Patient Name: ANA LILIA MYERS R : 1960 (64y 7m) Gender: F Study Date: 12/17/2024 11:02:16 AM Ht(Inch): 65 Wt(Lb): 225.09 BSA: 2.16 Ultrasound Technol: Eligio Frausto RDCS Location: [facility] Order Provider:RAFLACHO Heart Rate: 68 BMI: 37.45 BP: 131 [...] LA Length 4C 5.20 cm MV Decel Omhk049.84 msec [ 104.00 - 258.00 ] LA [...] cm [ 1.71 - 5.00 ] RA Dlzxkq51.92 ml RA Volume Index17.09 ml/m2 AoR Diam 2D 3.40 cm [ 2.70 - 3.70 ] Ao Root Index 1.57 cm/m2 [ 1.00 - 2.00 ] Asc Ao Diam 2D4.01 cm Asc Ao Index1.86 cm/m2 Electronically Signed By: Sujit Ray MD 12/17/2024 1:25:58 PM CDT us Lacho Carbone MD CV ECHO PROCEDURES Danitza l Result * Screening Mammogram Bilateral W Chaitanya (07/22/2024 12:26 PM SEX OFFENDER TREATMENT PROFESSIONAL) Anatomical Region Laterality Modality Breast Bilateral Mammography Narrative 07/23/2024 12:20 PM SEX OFFENDER TREATMENT PROFESSIONAL Mammogram Technique: Bilateral Digital Breast Tomosynthesis, Bilateral C-view 2D Screening mammogram. Views obtained: bilateral craniocaudal and bilateral mediolateral oblique. Computer Aided Detection was performed. Mammogram Findings: The present examination has been compared to prior imaging studies performed at [facility] on 11/25/2019, 07/10/2022 and 07/18/2023. [...] compared to prior imaging studies performed at [facility] on 11/25/2019, 07/10/2022 and 07/18/2023. [...] Female Attending MD: Ayden Andrade M.D. Room: [facility] ENDOSCOPY ROOM 8 Note Status: Finalized Procedure: [...] The scope was passed under direct vision.The [id number] endoscope was introduced through the anus and advanced to the terminal ileum. The colonoscopy was performed without difficulty. The patient tolerated the procedure well. The qualityof the bowel preparation was evaluated using the BBPS ([place] Bowel Preparation Scale) with scores of:Right Colon [...] On: 09/20/2020 11:07 AM Recognized by the [place] [employer] for Gastrointestinal Endoscopy for promoting quality [...] for listed symptoms of Depression, and Chronic Aieg-Crgoeehel-Nixuqk-Disorder, in order to report improved management of [...] health condition changes which resulted in early alf from career work, placement in [employer] & [...] for listed symptoms of Depression, and Chronic Purs-Vrrmlslvy-Porvli-Disorder, in order to report improved management of [...] individual only for 3x; Tx Order from Phototypesetter Operator/Psychiatrist to 1D/Wk Group Psychotherapy & 1Ind/@ 2wks 10/07. Pts next session was week of 10/17 and week of 10/24. Pt psychiatric re-evaluation was 10/28 with ON HOLD order for 30 days while she went to [place] to return with both of her aging parents ([place], [place]); her next psychiatric re-evaluation is scheduled [...] Due Date: 10/19/2021 Responsible User: Anabelle Tanner, JOINERY FACTORY WORKER Insurance [place] CHOICE PRF PPO [place] MEDICARE [facility] INS [place] MEDICARE [facility] INS [place] MEDICARE [employer] CLAIMS OFFICE PHYSICIANS [place] [employer] [place] Advance Directives For more information, please contact: [phone] Documents on File Type Date Recorded Patient Electric Meter Repairer Apprentice Expl anation ADVANCE DIRECTIVE 10/23/2018 7:19 PM POWER OF FREIGHT RATE ANALYST-MEDICAL * Full Code (Latest Code Status on [...] 2:34 PM 10/22/2018 4:54 PM Care Teams Appraisal Analyst Relationship Specialty Start Date End Date Ciera Duncan MD [address] [place] [address] PCP - General Family Medicine 07/16/20 Gisela Ribera MD PhD [address] [place] [address] Radiation Oncologist Radiation Oncology 11/10/18 Rae Oviedo MD [address] [place] [address] Surgeon Surgical Oncology 12/12/18 Yolanda Brannon, TARA [address] [place] [address] Nurse Practitioner Nurse Practitioner 08/05/20 Aquilino Potts Jr., MD [address] [place] [address] Consulting Physician Neurology 08/05/20 Linda Marcial, RN Registered Nurse Pulmonary Disease 09/06/22 Lacho Carbone MD Consulting Physician Cardiology 02/06/23 Roxanne Spring MD [address] [place] [address] Referring Physician Pulmonary Disease 02/06/23
--- OUTSIDE RECORDS SUMMARY | 2025-01-29 14:24 | XMS_ITS | Encounter Summary ---
Author Organization [facility] Address [address] [place] [address] Phone Care Team Providers Care Grounds Maintenance Manager Name Role Phone Gisela Ribera MD PhD Unavailable [phone] Rae Oviedo MD Unavailable [phone] Ciera Duncan MD Primary Care Provider + Yolanda Brannon COLORING ROOM WORKER Unavailable +[phone] Delroy Noel MD, Aquilino Nguyen Unavailable + Linda Marcial RN Unavailable Maame Mirian East MD Unavailable [phone] Roxanne Spring MD Unavailable [phone] Encounter Details Date Type Department Care Team [...] file Legal Sex Female 10:00 AM INFORMATION ASSURANCE ENGINEER Gender Identity Female 06/21/2021 11:15 AM INFORMATION ASSURANCE ENGINEER Sexual Orientation Straight 12/04/2018 12 :10 [...] Satisfaction with Living Conditions No Anabelle Tanner, MEASUREMENT COORDINATOR Note: New Extended Expected End Date 07/07/2022 [...] for example) she is asking for a [facility] present from a family member to complete the task. 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 Pts next session was week of 10/17 and week of 10/24. Pt psychiatric re-evaluation was 10/28 with ON HOLD order for 30 days while she went to [place] to return with both of her aging parents ([place], [place]); her next psychiatric re-evaluation is scheduled [...] documented as of this encounter Care Teams Grounds Maintenance Manager Relationship Specialty Start Date End Date Ciera Duncan MD [address] [place] [address] PCP - General Family Medicine 07/16/20 Gisela Ribera MD PhD [address] [place] [address] Radiation Oncologist Radiation Oncology 11/10/18 Rae Oviedo MD [address] [place] [address] Surgeon Surgical Oncology 12/12/18 Yolanda Brannon NP [address] [place] [address] Nurse Practitioner Nurse Practitioner 08/05/20 Aquilino Potts Jr., MD [address] [place] [address] Consulting Physician Neurology 08/05/20 Linda Marcial, RN Registered Nurse Pulmonary Disease 09/06/22 Mirian Stratton MD Consulting Physician Cardiology 02/06/23 Roxanne Spring MD [address] [place] [address] Referring Physician Pulmonary Disease 02/06/23 documented as of this encounter
--- OUTSIDE RECORDS SUMMARY | 2025-01-29 14:24 | XMS_ITS | Encounter Summary ---
Author Organization [facility] Address [address] [place] [address] Phone Care Team Providers Care Hospital Medicine Director Name Role Phone Ciera Duncan MD Primary Care Provider + Mikel Noel MD, Rebel Unavailable + [phone] Gisela Ribera MD PhD Unavailable Rae Oviedo MD Unavailable [phone] Lenora Gallo MD Unavailable Jil Mazariegos DPT Unavailable Ciera Duncan MD Primary Care Provider + Anabelle Villegas OT Unavailable [phone] Patrizia Arriaga DPT Unavail able Yolanda Brannon CONVENTION MANAGER Unavailable [phone] Delroy Noel MD, Aquilino Nguyen Unavailable + Linda Marcial RN Unavailable Maame Mirian East MD Unavailable Roxanne Spring MD Unavailable [phone] Encounter Details Date Type Department Care Team [...] on file Legal Sex Female 10:00 AM SUPERVISOR CONCRETE BLOCK PLANT Gender Identity Female 06/21/2021 11:15 AM SUPERVISOR CONCRETE BLOCK PLANT Sexual Orientation Straight 12/04/2018 12 :10 PM [...] COVID: Suspected 09/07/2023 09/07/2023 09/07/2023 6:27 PM SUPERVISOR CONCRETE BLOCK PLANT documented as of this encounter Care Teams Hospital Medicine Director Relationship Specialty Start Date End Date Ciera Duncan MD PCP - General 08/16/17 07/13/20 Ciera Duncan MD PCP - General Family Medicine 07/16/20 Rebel Morin Jr., MD Medical Oncologist/Mortgage Servicing Specialist Medical Oncology 10/31/18 01/06/19 Gisela Ribera MD PhD [address] [place] [address] Radiation Oncologist Radiation Oncology 11/10/18 Rae Oviedo MD [address] [place] [address] Surgeon Surgical Oncology 12/12/18 Lenora Gallo MD [address] [place] [address] Medical Oncologist/Mortgage Servicing Specialist Medical Oncology 01/07/19 02/05/23 Jil Mazariegos, DPT [address] [facility] [place] [address] Physical Therapist Physical Therapy 05/21/20 02/05/23 Anabelle Villegas OT [address] [facility] [place] [address] Occupational Therapist Occupational Therapy 07/26/20 1 08/16/20 Patrizia Arriaga, DPT [address] [place] [address] Physical Therapist Physical Therapy 07/26/20 02/05/23 Yolanda Brannon, CONVENTION MANAGER [address] [facility] [place] [address] Nurse Practitioner Nurse Practitioner 08/05/20 Aquilino Potts Jr., MD [address] [facility] [address] [place] [address] Consulting Physician Neurology 08/05/20 Linda Marcial, SANDRA Registered Nurse Pulmonary Disease 09/06/22 Mirian Stratton MD Consulting Physician Cardiology 02/06/23 Roxanne Spring MD [address] [facility] [address] [place] [address] Referring Physician Pulmonary Disease 02/06/23 documented as of this encounter
--- OUTSIDE RECORDS SUMMARY | 2025-01-29 14:24 | XMS_ITS | Encounter Summary ---
Author Organization [facility] Address [address] [place] [address] Phone Care Team Providers Care Bander Hand Name Role Phone Ciera Duncan MD Primary Care Provider + Gisela Ribera MD PhD Unavailable [phone] Rae Oviedo MD Unavailable [phone] Lenora Gallo MD Unavailable [phone] Jil Mazariegos DPT Unavailable Ciera Duncan MD Primary Care Provider + Anabelle Villegas OT Unavailable [phone] Patrizia Arriaga DPT Unavail able Yolanda Brannon NARROW GAUGE OPERATOR Unavailable [phone] Delroy Noel MD, Aquilino Nguyen Unavailable + Linda Marcial RN Unavailable Maame Mirian East MD Unavailable [phone] Roxanne Spring MD Unavailable [phone] Encounter Details Date Type Department Care Team [...] on file Legal Sex Female 10:00 AM OUTPATIENT CODING SPECIALIST Gender Identity Female 06/21/2021 11:15 AM OUTPATIENT CODING SPECIALIST Sexual Orientation Straight 12/04/2018 12 :10 PM [...] COVID: Suspected 09/07/2023 09/07/2023 09/07/2023 6:27 PM OUTPATIENT CODING SPECIALIST documented as of this encounter Care Teams Bander Hand Relationship Specialty Start Date End Date Ciera Duncan MD PCP - General 08/16/17 07/13/20 Ciera Duncan MD PCP - General Family Medicine 07/16/20 Gisela Ribera MD PhD [address] [place] [address] Radiation Oncologist Radiation Oncology 11/10/18 Rae Ovieod MD [address] [place] [address] Surgeon Surgical Oncology 12/12/18 Lenora Gallo MD [address] [place] [address] Medical Oncologist/Commercial Loan Closer Medical Oncology 01/07/19 02/05/23 Jil Mazariegos, TEGANT [address] [place] [address] Physical Therapist Physical Therapy 05/21/20 02/05/23 Anabelle Villegas OT [address] [place] [address] Occupational Therapist Occupational Therapy 07/26/20 1 08/16/20 Patrizia Arriaga, TEGANT [address] [place] [address] Physical Therapist Physical Therapy 07/26/20 02/05/23 Yolanda Brannon, TARA [address] [place] [address] Nurse Practitioner Nurse Practitioner 08/05/20 Aquilino Potts Jr., MD [address] [facility] [address] [place] [address] Consulting Physician Neurology 08/05/20 Linda Marcial, RN Registered Nurse Pulmonary Disease 09/06/22 Mirian Stratton MD Consulting Physician Cardiology 02/06/23 Roxanne Spring MD [address] [facility] [address] [place] [address] Referring Physician Pulmonary Disease 02/06/23 documented as of this encounter
--- OUTSIDE RECORDS SUMMARY | 2025-01-29 14:24 | XMS_ITS | Encounter Summary ---
Author Organization [facility] Address [address] [place] [address] Phone Care Team Providers Care Manager Company Name Role Phone Ciera Duncan MD Primary Care Provider + Gisela Ribera MD PhD Unavailable [phone] Rae Oviedo MD Unavailable [phone] Lenora Gallo MD Unavailable [phone] Jil Mazariegos DPT Unavailable Ciera Duncan MD Primary Care Provider + Anabelle Villegas OT Unavailable [phone] Patrizia Arriaga DPT Unavail able Yolanda Brannon RAILROAD BRAKE OPERATOR Unavailable [phone] Delroy Noel MD, Aquilino Nguyen Unavailable + Linda Marcial RN Unavailable Maame Mirian East MD Unavailable [phone] Roxanne Spring MD Unavailable [phone] Encounter Details Date Type Department Care Team [...] on file Legal Sex Female 10:00 AM RESEARCH ASSISTANT MEMBER Gender Identity Female 06/21/2021 11:15 AM RESEARCH ASSISTANT MEMBER Sexual Orientation Straight 12/04/2018 12 :10 PM [...] COVID: Suspected 09/07/2023 09/07/2023 09/07/2023 6:27 PM RESEARCH ASSISTANT MEMBER documented as of this encounter Care Teams Manager Company Relationship Specialty Start Date End Date Ciera Duncan MD PCP - General 08/16/17 07/13/20 Ciera Duncan MD PCP - General Family Medicine 07/16/20 Gisela Ribera MD PhD [address] [place] [address] Radiation Oncologist Radiation Oncology 11/10/18 Rea Oviedo MD [address] [place] [address] Surgeon Surgical Oncology 12/12/18 Lenora Gallo MD [address] [place] [address] Medical Oncologist/Labor Relations Teacher Medical Oncology 01/07/19 02/05/23 Jil Mazariegos, DPT [address] [place] [address] Physical Therapist Physical Therapy 05/21/20 02/05/23 Anabelle Villegas OT [address] [place] [address] Occupational Therapist Occupational Therapy 07/26/20 1 08/16/20 Patrizia Arriaga, DPT [address] [place] [address] Physical Therapist Physical Therapy 07/26/20 02/05/23 Yolanda Brannon, TARA [address] [place] [address] Nurse Practitioner Nurse Practitioner 2/4/21 Aquilino Potts Jr., MD [address] [facility] [address] [place] [address] Consulting Physician Neurology 08/05/20 Linda Marcial, RN Registered Nurse Pulmonary Disease 09/06/22 Mirian Stratton MD Consulting Physician Cardiology 02/06/23 Roxanne Spring MD [address] [facility] [address] [place] [address] Referring Physician Pulmonary Disease 02/06/23 documented as of this encounter
[2025-01-29 19:47] LABS: Hemoglobin A1C 5.6 % (<5.7)
[2025-01-29 20:11] LABS: Alanine Aminotransferase 52 U/L (6-35); Albumin Level 4.1 g/dL (3.5-5.1); Alkaline Phosphatase 113 U/L (38-126); Anion Gap 7 mmol/L (4-12); Aspartate Amino Transferase 48 U/L (14-36); Bilirubin,Total 0.6 mg/dL (0.2-1.3); Blood Urea Nitrogen 13 mg/dL (7-17); Calcium 9.4 mg/dL (8.4-10.2); Carbon Dioxide 27 mmol/L (22-30); Chloride 103 mmol/L (98-107); Cholesterol 120 mg/dL (0-200); Estimated Glomerular Filt Rate > 60; Glucose 59 mg/dL (65-110); HDL Direct 25 mg/dL; Potassium 4.3 mmol/L (3.4-5.0); Sodium 137 mmol/L (137-145); Total Protein 6.8 g/dL (6.3-8.2); Triglycerides 160 mg/dL (<150)
[2025-02-02 07:07] LABS: ANA by IFA Rfx Titer/Pattern Negative (.)
== END 2025-01-29 14:20 | disposition home or self-care (01) ==
LOC: ANHGOSHLAB 14:20
PROVIDERS: PCP Family Medicine; Visit Provider Family Medicine
DX: E78.2 Mixed hyperlipidemia (principal); R73.03 Prediabetes; M25.50 Pain in unspecified joint
CPT/HCPCS: 36415; 80053; 80061; 83036; 86038; 86430

== ENCOUNTER 2025-03-31 09:13 | Outpatient (CLI) | payer MEDICARE, OTHER, SELFPAY ==
--- OUTSIDE RECORDS SUMMARY | 2022-01-25 11:00 | XMS_ITS | Continuity of Care Document ---
Author Organization 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 Name Role Phone Saida LOCK FACS, Jimmy Dewey Unavailab le Allergies, Adverse Reactions, Alerts Substance Reaction Status Criticality adhesive Active No Information neomycin Active No Information vortioxetine Active No Information succinylcholine Active No Informati on ERYTHROMYCIN LACTOBIONATE Active No Information Medications Medication Instructions Dosage Effective Dates (start - stop) Status Comments bisoprolol fumarate 5 mg tablet take 1 tablet by oral route every day 5 MG - Active ranolazine ER 500 mg tablet,extended release,12 hr take 1 tablet by oral route 2 times every day 500 MG - Active bupropion HCl XL 300 mg 24 hr tablet, extended release take 1 tablet by oral route every day 300 MG - Active isosorbide mononitrate ER 30 mg tablet,extended release 24 hr take 1 tablet by oral route every day in the morning 30 MG - Active aspirin 81 mg tablet,delayed release take 1 tablet by oral route every day 81 MG - Active gabapentin 300 mg capsule TAKE 1 CAPSULE BY MOUTH NIGHTLY - Active FeroSul 325 mg (65 mg iron) tablet TAKE 1 TABLET BY MOUTH ONCE DAILY WITH BREAKFAST - Active furosemide 20 mg tablet take 1 tablet by oral route every day 20 MG - Active atorvastatin 20 mg tablet take 1 tablet by oral route every day 20 MG - Active clonidine HCl 0.2 mg tablet TAKE 1 TABLET BY MOUTH AT BEDTIME Apr-02-2022 - Active montelukast 10 mg tablet take 1 tablet by oral route every day in the evening 10 MG - Active gabapentin 100 mg capsule TAKE 2 CAPSULES BY MOUTH Two TIMES DAILY - Active venlafaxine ER 75 mg capsule,extended release 24 hr take 1 capsule by oral route every day with food 75 MG - Active albuterol sulfate HFA 90 mcg/actuation aerosol inhaler use as needed - Active Entresto 24 mg-26 mg tablet TAKE 1 TABLET BY MOUTH TWICE DAILY - Active nitroglycerin 0.[address] 1 tablet by sublingual route at 1st sign of attack; may repeat every 5 minutes up to 3 tabs; if norelief seek medical help 0.4 MG - Active Pred Mild 0.12 % eye drops,suspension INSTILL 1 DROP INTO BOTH EYES TWICE A DAY - Active Trelegy Ellipta 100 mcg-62.5 mcg-25 mcg powder for inhalation INHALE ONE PUFF DAILY DIRECTED - Active Restasis 0.05 % eye drops in a dropperette APPLY ONE DROP IN AFFECTED EYE 2 TIMES A DAY - Active diltiazem ER 60 mg capsule,extended release 12 hr TAKE 1 CAPSULE BY MOUTH 2 TIMES A DAY. - Active trazodone 50 mg tablet TAKE 2 TABLETS BY MOUTH NIGHTLY - Active spironolactone 25 mg tablet TAKE 1 TABLET BY MOUTH EVERY DAY - Active ketoconazole 2 % topical cream APPLY TO AFFECTED AREA TWICE A DAY - Active mupirocin 2 % topical ointment APPLY TO AFFECTED AREA 3 TIMES A DAY - Active arginine (L-arginine) 500 mg capsule take once daily - Active PreserVision AREDS-2 250 mg-90 mg-40 mg-1 mg capsule take daily - Active Refresh Digital PF 0.5 %-1 %-0.5 % eye drops in a dropperette instill 1 drop by ophthalmic route 4 times every day 1 drop - Active Flovent Diskus 50 mcg/actuation powder for inhalation inhale 2 puff by inhalation route 2 times every day - Active baclofen 10 mg tablet take 1 tablet by oral route 4 times every day 10 MG - Active omeprazole 40 mg capsule,delayed release take 1 capsule by oral route every day before a meal 40 MG - Active Synjardy XR 12.5 mg-1,000 mg tablet, extended release take 2 tablet by oral route every day in the morning with a meal 2.00 tablet - Active cholecalciferol (vitamin D3) 25 mcg (1,000 unit) capsule take 1 tablet by oral route every day 1 tablet - Active Procedures Procedure Date After Cataract Laser Surgery After Cataract Laser Surgery No Charge Refraction Office/outpatient Visit, Est Eye Exam & Treatment Refraction Visual Field Examination(s) Eye Exam, New Patient Advance Directives Directive Yes / No Effective Date File Name No Information Encounters Encounter Description Practice Location Reason(s) For Visit Diagnoses Date Provider Providers [facility]ied on [facility], [address] [place] [address] [address], [place], [place], [id number], tel:[phone] [facility] No Information 2 Saida Marquez. [address] [place] [address] [employer], [place], [id number], . tel:[phone] Referring Provider: Roxanne Kramer, [address] [facility] [address], [place], [address] . tel:[phone] [facility], [address], [place], [place], [id number], tel:[phone] [place] [address] No Information 2 Saida Marquez. [address] [place] [address] [address], [address], [place], [place], [id number], . tel:[phone] Referring Provider: Roxanne Kramer, [address] [facility] [address], [place], [address] . tel:[phone] Office/outpa tient Visit, Est [facility], [address] [place] [address] [address], [place], [place], [id number], [place] tel:[phone] [facility] Maryellen Guerrero NP complete exam (chief complaint) PCO (posterior capsular opacification), bilateralBilatera l dry eyes 2 Saida Marquez. [address], [place], [place], [address], [place]. tel:[phone] Akil Mccall MD.Referri ng Provider: Roxanne Kramer, [address] [place] [address] [address], [place], [address] . tel:[phone] [facility], [address] [place] [address] [address], [place], [place], [address], [place] tel:[phone] [facility] No Information 8 Kwabena Leos. [facility] , [address], [place], [place], [facility], [place]. tel:[phone] [facility], [address] [place] [address] [address], [place], [place], [address], [place] tel:[phone] [facility] No Information 2-200 7 Kwabena Leos. [address] [facility] [address] , [address], [place], [place], [facility], [place]. tel:[phone] Referring Provider: Deric Aiken, [address], [place], [place], [facility]. tel:[phone] [facility], [address] [place] [address] [address], [place], [place], [address], [place] tel:[phone] [facility] No Information 8-200 7 Kwabena Leos. [address] [facility] [address] , [address], [place], [place], [facility], [place]. tel:[phone] Referring Provider: Ciera Duncan MD, [address] [place], [place], [facility]. tel:[phone] Family History Family Member Type Diagnosis Age At Onset Problem Family history of Glaucoma Problem Family history of Diabetes m ellitus Problem Family history of Retinal de tachment Payers Payer name Insurance type Covered democrat ID Jacqueline bustillos(s) [id number] [place] [id number] Social History Type Description Quantity Date Captured Comments Sex Female Smoking Status No Information Chief Complaint And Reason For Visit No Information Reason For Referral Reason For Referral No Information Plan Of Treatment Date Type Action Status Goal Tobacco cessation counseling completed Patient Education Learning About YAG Lase r Capsulotomy completed History Of Present Illness Encounter Date Complaint History Of Prese nt Illness 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 Pt c/o her reading/close vision has gotten worse, noticed she is having trouble seeing the TV, pt does not drive at night unless she has to, daytime is very birght for her especially OS. Pt mentioned she has dry eyes and when her eyes fatigue she gets double vision. Pt is taking pred BID OU, and Refresh TID OU. No refills needed at this time. Pt was referred by Dr. Askew for a YAG PC. Pt claims she is not diabetic but takes diabetic meds to control diet. Functional Status Date Functional Assessmen t No Information Instructions Date Instruction Additional Infor linda Impression/Plan Assessments Type Assessment Date No Information Patient Care Teams Name Effective Dates (start - stop) Status Members No Information
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
--- OUTSIDE RECORDS SUMMARY | 2025-03-31 09:44 | XMS_ITS | Encounter Summary ---
Author Organization [facility] Address [address] [place] [address] Phone Care Team Providers Care Cardiology Tech Name Role Phone Ciera Duncan MD Primary Care Provider + Mikel Noel MD, Rebel Unavailable + [phone] Gisela Ribera MD PhD Unavailable Rae Oviedo MD Unavailable [phone] Lenora Gallo MD Unavailable + [phone] Jil Mazariegos DPT Unavailable Ciera Duncan MD Primary Care Provider + Anabelle Villegas OT Unavailable [phone] Patrizia Arriaga DPT Unavail able Yolanda Brannon ROTATING FIELD ASSEMBLER Unavailable [phone] Delroy Noel MD, Aquilino Nguyen Unavailable + Linda Marcial RN Unavailable Maame Mirian East MD Unavailable Roxanne Spring MD Unavailable [phone] Ligia Yarbrough Unavailable Unavailable Encounter Details Date Type Department Care Team (Late st Contact Info) Description 11/06/2018 Telephone [facility] Oncology [address] [facility] [place] [address] [place] [id number] Nichelle Garcia CMA Social History Tobacco Use [...] on file Legal Sex Female 10:00 AM FRUIT LOADER Gender Identity Female 06/21/2021 11:15 AM FRUIT LOADER Sexual Orientation Straight 12/04/2018 12 :10 PM CDT documented as of this encounter Plan of Treatment Not on file documented as of this encounter Visit Diagnoses Not on filedocumented in this encounter Additional Health Concerns Infection Onset Date Last Indicated Resolved Time COVID: Suspected 09/07/2023 09/07/2023 09/07/2023 6:27 PM FRUIT LOADER documented as of this encounter Care Teams Cardiology Tech Relationship Specialty Start Date End Date Ciera Duncan MD PCP - General 08/16/17 07/13/20 Ciera Duncan MD PCP - General Family Medicine 07/16/20 Rebel Morin Jr., MD Medical Oncologist/Diesel Truck Driver Medical Oncology 10/31/18 01/06/19 Gisela Ribera MD PhD [address] [facility] [address] [place] [address] Radiation Oncologist Radiation Oncology 11/10/18 Rae Oviedo MD [address] [place] [address] Surgeon Surgical Oncology 12/12/18 Lenora Gallo MD [address] [place] [address] Medical Oncologist/Diesel Truck Driver Medical Oncology 01/07/19 02/05/23 Jil Mazariegos, DPT [address] [place] [address] Physical Therapist Physical Therapy 05/21/20 02/05/23 Anabelle Villegas OT [address] [place] [address] Occupational Therapist Occupational Therapy 07/26/20 1 08/16/20 Patrizia Arriaga, TEGANT [address] [place] [address] Physical Therapist Physical Therapy 07/26/20 02/05/23 Yolanda Brannon, ROTATING FIELD ASSEMBLER [address] [place] [address] Nurse Practitioner Nurse Practitioner 08/05/20 Aquilino Potts Jr., MD [address] [place] [address] Consulting Physician Neurology 08/05/20 Linda Marcial, RN Registered Nurse Pulmonary Disease 09/06/22 Mirian Stratton MD Consulting Physician Cardiology 02/06/23 Roxanne Spring MD [address] [facility] [address] [place] [address] Referring Physician Pulmonary Disease 02/06/23 Ligia Yarbrough Primary Die Cutter Apprentice 03/19/25 documented as of this encounter
--- OUTSIDE RECORDS SUMMARY | 2025-03-31 09:44 | XMS_ITS | Encounter Summary ---
Author Organization [facility] Address [address] [place] [address] Care Team Providers Care Finish Rolls Operator Name Role Phone Unavailable Primary Care Provider Unavailabl e Encounter Details Date Type Department Care Team (Late st Contact Info) Description 11/01/2014 Nurse Triage Report [facility] ABSTRACTION Karina Danielle RN Social History Tobacco Use Types Packs/Day Years Used Date Smoking Tobacco: Never Assessed Comments Unknown Sex and Gender Information Value Date Recorded Sex Assigned at Not on file Legal Sex Female 3:37 AM ASSEMBLER BONDING Gender Identity Not on file Sexual Orientation [...] review-oral <<<<<<<< TRIAGE NOTE >>>>>>>> Triage Note: Plant Associate Karina Danielle added this note on Nov 01 2014 9:53AM: Pt states she will go to [facility] in [place], [place]. <<<<<<<< TRIAGE/OUTCOME >>>>>>>> Guideline Title: Elbow [...]
--- OUTSIDE RECORDS SUMMARY | 2025-03-31 09:44 | XMS_ITS | Encounter Summary ---
Author Organization [facility] Address [address] [place] [address] Care Team Providers Care Packaging Coordinator Name Role Phone Ciera Duncan MD Primary Care Provider + Gisela Ribera MD PhD Unavailable [phone] Rae Oviedo MD Unavailable [phone] Lenora Gallo MD Unavailable + [phone] Jil Mazariegos DPT Unavailable Ciera Duncan MD Primary Care Provider + Anabelle Villegas OT Unavailable [phone] Patrizia Arriaga DPT Unavail able Yolanda Brannon REPRINT SORTER Unavailable [phone] Delroy Noel MD, Steven Richard Unavailable + Linda Marcial RN Unavailable Maame Mirian East MD Unavailable [phone] Roxanne Spring MD Unavailable [phone] Ligia Yarbrough Unavailable Unavailable Encounter Details Date Type Department Care Team (Late st Contact Info) Description 01/09/2019 Telephone [facility] Radiation Oncology at [facility] [address] [place] [address] Amee Patterson MA Social History Tobacco Use [...] on file Legal Sex Female 10:00 AM FISHER SWORDFISH Gender Identity Female 06/21/2021 11:15 AM FISHER SWORDFISH Sexual Orientation Straight 12/04/2018 12 :10 PM CDT documented as of this encounter Plan of Treatment Not on file documented as of this encounter Visit Diagnoses Not on filedocumented in this encounter Additional Health Concerns Infection Onset Date Last Indicated Resolved Time COVID: Suspected 09/07/2023 09/07/2023 09/07/2023 6:27 PM FISHER SWORDFISH documented as of this encounter Care Teams Packaging Coordinator Relationship Specialty Start Date End Date Ciera Duncan MD PCP - General 08/16/17 07/13/20 Ciera Duncan MD PCP - General Family Medicine 07/16/20 Gisela Ribera MD PhD [email or web address] [place] [address] Radiation Oncologist Radiation Oncology 11/10/18 Rae Oviedo MD [address] [place] [address] Surgeon Surgical Oncology 12/12/18 Lenora Gallo MD [address] [facility] [address] [place] [address] Medical Oncologist/Business Development Engineer Medical Oncology 01/07/19 02/05/23 Jil Mazariegos, DPT [address] [facility] [address] [address] Physical Therapist Physical Therapy 05/21/20 02/05/23 Anabelle Villegas OT [address] [facility] [address] [address] Occupational Therapist Occupational Therapy 07/26/20 1 08/16/20 Patrizia Arriaga, TEGANT [address] [facility] [address] [address] Physical Therapist Physical Therapy 07/26/20 02/05/23 Yolanda Brannon, TARA [address] [facility] [address] [address] Nurse Practitioner Nurse Practitioner 08/05/20 Aquilino Potts Jr., MD [address] [facility] [address] [address] Consulting Physician Neurology 08/05/20 Linda Marcial, SANDRA Registered Nurse Pulmonary Disease 09/06/22 Mirian Stratton MD Consulting Physician Cardiology 02/06/23 Roxanne Spring MD [address] [facility] [address] [place] [address] Referring Physician Pulmonary Disease 02/06/23 Ligia Yarbrough Primary Medical Surgical Tech 03/19/25 documented as of this encounter
--- OUTSIDE RECORDS SUMMARY | 2025-03-31 09:44 | XMS_ITS ---
Author Organization [facility] Address [address] [facility] [place] [address] Care Team Providers Care Gelatin Plant Supervisor Name Role Phone Gisela Ribera MD PhD Unavailable [phone] Rae Oviedo MD Unavailable [phone] Ciera Duncan MD Primary Care Provider + Yolanda Brannon CRUSHER AND BINDER OPERATOR Unavailable Delroy Noel MD, Aquilino Nguyen Unavailable + Linda Marcial RN Unavailable Maame Mirian East MD Unavailable [phone] Roxanne Spring MD Unavailable [phone] Ligia Yarbrough Unavailable Unavailable Active Problems Problem Noted Date Diagnosed Date Class 2 severe obesity due t o excess calories with serious comorbidity and body mass index (BMI) of 37.0 to 37.9 in adult 01/08/2025 Ataxia 02/01/2024 Abnormal MRI, breast 08/23/2023 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 Wants [...] rehab. Assessment & Plan (08/30/2021 1:55 PM TOPOGRAPHY TECHNICIAN): Patient continue to use her Trelegy 1 inhalation once a day. Patient continue to use her albuterol inhaler as needed up to 4 times a day for shortness of breath. Pulmonary rehab if the shortness of breath is not related to a cardiac issue. Assessment & Plan (06/21/2021 3:04 PM TOPOGRAPHY TECHNICIAN): Patient will continue with Trelegy 1 puff daily, Singulair 10 mg daily and Flonase. I will refer her to see Dr. Nova in [place] for skin testing and possible Dupixent injections. She will follow-up with me in 2 months. SOPHY (obstructive sleep apnea) 03/24/2021 Assessment & Plan (12/06/2022 12:15 PM CDT): Intermittently non compliant with her mask. Would like to follow with sleep medicine at [facility]. Referral placed. Assessment & Plan (10/24/2021 10:06 AM CDT): Patient continue to wear CPAP in auto titrating range of 13-20 cm water pressure while sleeping. Her DME is [facility]. Assessment & Plan (08/30/2021 1:55 PM TOPOGRAPHY TECHNICIAN): Patient continue to wear her CPAP in auto titrating range of 13-20 cm water pressure while sleeping. Her DME is [facility]. Assessment & Plan (06/21/2021 3:05 PM TOPOGRAPHY TECHNICIAN): Patient is compliant with the auto titrating [...] will discuss her refractive needs with her mill beam fitter Choroidal nevus of right eye 01/11/2021 Assessment [...] future. Assessment & Plan (05/08/2023 9:28 AM TOPOGRAPHY TECHNICIAN): She has significant visual difficulty associated with distance intermediate and near vision. This is complicated by her diplopia for which she uses prisms. She is currently using 3 pairs of glasses but her acuity still suboptimal. I have recommended that she see a low television production clerk at the [facility] low vision clinic. Discussed CNTF [...] from 10/31/2018:Stage IA(cT1, cN0, cM0, G2, ER+, MT+, HER2-) - Signed by Gisela Ribera MD PhD on 11/10/2018 Pathologic:Stage IA(pT1b, pN0, cM0, G2, ER+, MT+, HER2-) - Signed by Gisela Ribera MD PhD on 11/10/2018 Breast cancer screening, high risk patient 08/30 Hiatal hernia 09/21/2017 Elbow pain 12/03/2014 Assessment & Plan (08/30/2021 1:54 PM TOPOGRAPHY TECHNICIAN): I have ordered an iron and ferritin [...] Automatic Entry Manual Entr y Fluoro Time 25.42 minutes 14.42 minutes 11 minutes Air kerma at the reference point (Ka,r) 1,093.2 mGy 2 29.2 mGy 864 mGy DLP 1,971 mGycm 1,971 mGycm 0 mGycm DAP 57.779 Gy-cm2 0 Gy-cm2 57.779 Gy-cm2 Resolved Problems Problem Noted Date Diagnosed Date [...] depression 07/16/2020 10/07/2021 Moderate anxiety 07/16/2020 10/07/2021 penitentiary current use of aromatase inhibitor 9 03/18/2019
--- OUTSIDE RECORDS SUMMARY | 2025-03-31 09:44 | XMS_ITS | Clinical Summary ---
Author Organization [facility] Address [address] [place] [address] Care Team Providers Care Bus Assistant Name Role Phone Gisela Ribera MD PhD Unavailable [phone] Rae Oviedo MD Unavailable [phone] Ciera Duncan MD Primary Care Provider + Yolanda Brannon MMA FIGHTER Unavailable [phone] Delroy Noel MD, Aquilino Nguyen Unavailable + Linda Marcial RN Unavailable Maame Mirian East MD Unavailable [phone] Roxanne Spring MD Unavailable [phone] Ligia Yarbrough Unavailable Unavailable Allergies Active Allergy Reactions Criticality Noted Date Comments Adhesive Rash Medium 09/27/2017 Bacitracin Rash High 01/29/2025 Erythromycin Hives,Rash Medium 05/01/2011 Hives Neomycin Rash High 01/29/2025 Tyfkliuy-Wbwxgzcmmq-Tdgd myxin Rash Medium 10/22/2018 Polymyxin B Rash High 01/29/2025 Succinylcholine Other (See comments) Low 09/27/2017 Flu [...] Application topically as needed 0 9 Active carboxymethyl/g ly/poly80/PF (REFRESH OPTIVE LASHONDA-3, PF, [...] pills 4 Active atorvastatin (LIPITOR) 20 mg tabletIndicatio ns:hyperlipidem ia Take 1 tablet (20 mg total) by mouth nightly Crush medications for 2 weeks after surgery, after the 2 weeks may take whole pills 4 Active cloNIDine (CATAPRES) 0.2 mg tabletIndicatio ns:Vasomotor Symptoms associated with Menopause,can't take hormones and this helps Take 1 tablet (0.2 mg total) by mouth nightly Crush medications for 2 weeks after surgery, after the 2 weeks may take whole pills 4 Active levothyroxine (SYNTHROID) 50 mcg tabletIndicatio ns:hypothyroidi sm Take 1 tablet (50 mcg total) by mouth commissioner of officials before breakfast Crush medications for 2 weeks after surgery, after the 2 weeks may take whole pills 4 Active montelukast (SINGULAIR) 10 mg tabletIndicatio ns:Maintenance [...] [address] (CYMBALTA) 60 mg capsuleIndicati ons:Anxiety with Depression,bradly r depressive disorder Take 1 capsule (60 mg total) by mouth every morning For 2 weeks after surgery, open capsule sprinkle medication in applesauce and take immediately, after the 2 weeks may take whole pills 4 Active aspirin 81 mg enteric coated tabletIndicatio ns:prevention [...] for wheezing 1 each 4 Active multivitamin tabletIndicatio ns:Vitamin Deficiency Prevention Take 1 tablet by mouth daily Active vitamin K2 40 mcg tablet Take by mouth daily Active traMADoL (ULTRAM) 50 mg tablet Take 1 tablet (50 mg total) by mouth 2 (two) times a day 4 Active topiramate (TOPAMAX) 25 mg tabletIndicatio ns:Ataxia,Major depressive disorder, recurrent episode, mild,Long COVID TAKE 1 TABLET BY MOUTH TWICE A DAY 180 tablet 1 5 Active isosorbide mononitrate ER (IMDUR) 60 mg 24 hr tabletIndicatio ns:prevention of anginal pain in coronary artery disease Take 1 tablet (60 mg total) by mouth nightly 90 tablet 3 5 026 Active Restasis 0.05 % ophthalmic emulsion Administer 1 drop into both eyes every 12 (twelve) hours 5 Active hypromellose (GENTEAL TEARS SEVERE GEL OPHT) 5 Active cholecalciferol (VITAMIN D-3) 2000 unit capsule 1 capsule (2,000 Units total) 4 Active nystatin powderIndicatio ns:Fungal infection of skin Apply topically 4 (four) times a day To skin under the bilateral breast 30 g 1 5 026 Active amLODIPine (NORVASC) 10 mg tablet Take 1 tablet (10 mg total) by mouth daily 90 tablet 3 5 025 Discontin ued(Patie nt Reported) bisoprolol (ZEBETA) 10 mg tablet Take 1 tablet (10 mg total) by mouth daily Crush medications for 2 weeks after surgery, after the 2 weeks may take whole pills 90 tablet 3 5 025 Discontin ued(Thera py completed ) isosorbide mononitrate ER (IMDUR) 120 mg 24 hr tabletIndicatio ns:prevention of anginal pain in coronary artery disease Take 1 tablet (120 mg total) by mouth nightly 90 tablet 3 5 025 Discontin ued(Reord er) Active Problems Problem Noted Date Diagnosed Date Class 2 severe obesity due t o excess calories with serious comorbidity and body mass index (BMI) of 37.0 to 37.9 in adult 01/08/2025 Ataxia 02/01/2024 Abnormal MRI, breast 08/23/2023 Coronary artery disease invo lving [place] coronary artery of [place] heart with angina pectoris 07/31/2023 Agatston coronary artery calcium score between 2 00 and 399 07/31/2023 Hiatal hernia with GERD 07/04/2023 Dysphotopsia 06/14/2023 Assessment & Plan (06/14/2023 9:55 AM BIBLICAL STUDIES PROFESSOR): Monovision with OS set for near. Wants [...] rehab. Assessment & Plan (08/30/2021 1:55 PM BIBLICAL STUDIES PROFESSOR): Patient continue to use her Trelegy 1 inhalation once a day. Patient continue to use her albuterol inhaler as needed up to 4 times a day for shortness of breath. Pulmonary rehab if the shortness of breath is not related to a cardiac issue. Assessment & Plan (06/21/2021 3:04 PM BIBLICAL STUDIES PROFESSOR): Patient will continue with Trelegy 1 puff daily, Singulair 10 mg daily and Flonase. I will refer her to see Dr. Nova in [place] for skin testing and possible Dupixent injections. She will follow-up with me in 2 months. SOPHY (obstructive sleep apnea) 03/24/2021 Assessment & Plan (12/06/2022 12:15 PM CDT): Intermittently non compliant with her mask. Would like to follow with sleep medicine at [facility]. Referral placed. Assessment & Plan (10/24/2021 10:06 AM CDT): Patient continue to wear CPAP in auto titrating range of 13-20 cm water pressure while sleeping. Her DME is [facility]. Assessment & Plan (08/30/2021 1:55 PM BIBLICAL STUDIES PROFESSOR): Patient continue to wear her CPAP in auto titrating range of 13-20 cm water pressure while sleeping. Her DME is [employer]. Assessment & Plan (06/21/2021 3:05 PM BIBLICAL STUDIES PROFESSOR): Patient is compliant with the auto titrating [...] will discuss her refractive needs with her case management manager Choroidal nevus of right eye 01/11/2021 Assessment [...] future. Assessment & Plan (05/08/2023 9:28 AM BIBLICAL STUDIES PROFESSOR): She has significant visual difficulty associated with distance intermediate and near vision. This is complicated by her diplopia for which she uses prisms. She is currently using 3 pairs of glasses but her acuity still suboptimal. I have recommended that she see a low english division chair at the [facility] low vision clinic. Discussed CNTF data [...] from 10/31/2018:Stage IA(cT1, cN0, cM0, G2, ER+, NC+, HER2-) - Signed by Gisela Ribera MD PhD on 11/10/2018 Pathologic:Stage IA(pT1b, pN0, cM0, G2, ER+, NC+, HER2-) - Signed by Gisela Ribera MD PhD on 11/10/2018 Breast cancer screening, high risk patient 08/30 Hiatal hernia 09/21/2017 Elbow pain 12/03/2014 Assessment & Plan (08/30/2021 1:54 PM BIBLICAL STUDIES PROFESSOR): I have ordered an iron and ferritin [...] depression 07/16/2020 10/07/2021 Moderate anxiety 07/16/2020 10/07/2021 emt intermediate current use of aromatase inhibitor 9 03/18/2019 Encounters Date Type Department Care Team Description 03/25/2025 10:43 AM CDT - 03/25/2025 11:59 PM CDT Hospital Encounter [facility] [place] - Breast Imaging [address] [place] [address] 8 [place] [address] Abnormal mammogram of right breast; Mass of right breast, unspecified quadrant; History of right breast cancer; History of partial mastectomy of right breast Discharge Disposition: Discharge to home or self care 03/25/2025 10:30 AM CDT Office Visit [facility] Medicine Surgery [address] [place] [address] 8 [place] [phone] Maxine Hernandez NP History of right breast cancer (Primary Dx); History of partial mastectomy of right breast; Abnormal finding on breast imaging; Fungal infection of skin 03/23/2025 Telephone [facility] Cardiology [address] [facility] Advanced Medicine 8th [place] [address] [place] [phone] Mirian Stratton MD 03/18/2025 Telephone [facility] Surgery [address] [facility] [address] [place] [address] Lakisha Flowers NP 01/19/2025 10:47 AM CDT - 01/19/2025 11:59 PM CDT Hospital Encounter [facility] Radiology [facility] Advanced Medicine ([facility]) [address] [place], [place] [id number] History of breast cancer Discharge Disposition: Discharge to home or self care 01/19/2025 Results Follow-Up [facility] Surgery [address] [place] [address] Lakisha Flowers NP MRI Breast Bilateral W WO Contrast 01/03/2025 Results Follow-Up [facility] Cardiology [address] [facility] [address] [place] [address] Mirian Stratton MD Transthoracic Echo (TTE) Complete W Doppler/CF from Last 3 Months Immunizations Immunization Administration Dates Next Due Hep A, Adult 09/18/2017,10/26/2016 Influenza, Quadrivalent, Anel l Culture-based MDCK, Preservative Free, Antibiotic Free, Intramuscular 04/25/2021 Influenza, Quadrivalent, Rec ombinant, Egg Free, Preservative Free, Intramuscular 03/13/2019 Influenza, Quadrivalent, Spl it, Preservative Free, Intramuscular 07/05/2023,03/29/2018 Influenza, Trivalent, Cell Culture-based MDCK, Preservative Free, Antibiotic Free, Intramuscular 05/12/2024 Influenza, Trivalent, IM (MDV) ,03/18/2020,03/13/2019,04/17,03/09/2016,2015,03/10/2014 ,03/15/2013,03/15/2012,03/31/2011,04/02,05/17/2007 Influenza, Trivalent, Preser vative Free, Intramuscular 03/09/2016 Influenza, Unspecified 07/05/2023,02/28/2018 Moderna SARS-CoV-2 Monovalen t Vaccination (12+ YRS) 08/03/2020,07/06/2020 Pfizer Sars-Cov-2 Bivalent V accination (12+ YRS) 04/13/2022 Pneumococcal Polysaccharide PPV23 09/16/2020,07/2013 Tdap 02/10/2021,11/09/2008 ZOSTER Recombinant 09/26/2021,05/19/2021 Surgical History Surgery Date Site/Laterality Comments ROTATOR CUFF REPAIR TRUE FUNDOPLICATION BREAST BIOPSY 09/13/2018 Right RIGHT breast core needle biopsy using imaging guidance BREAST BIOPSY 10/08/2018 Right One biopsy added this extra column for pathology - Right invasive mucinous carcinoma CARPAL TUNNEL RELEASE Bilateral THUMB SURGERY Right ELBOW SURGERY FOOT SURGERY Right Bone broken in 4 places MENISCUS SURGERY Right HERNIA REPAIR BREAST LUMPECTOMY 11/10/2018 Right [facility] COLONOSCOPY 07/02/2011 - 07/01/2012 UPPER GASTROINTESTINAL ENDOSCOPY TONSILLECTOMY TOTAL ABDOMINAL HYSTERECTOMY W/ BILATERAL SALPINGOOPHORECTOMY CATARACT EXTRACTION 01/31/2020 - 03/01/2020 Bilateral Monovision; OD-Distance, OS- Near; Dr. Ang Otoole TRIGGER FINGER RELEASE 07/02/2020 - 07/01/2021 MASTECTOMY CARDIAC CATHETERIZATION 06/01/2021 BREAST BIOPSY 01/26/2023 Right Fat necrosis, microcalcs w/o malignancy or atypia KNEE ARTHROSCOPY W/ LATERAL RELEASE OTHER SURGICAL [...] Tinnitus Neck pain Kidney stone Breast cancer ([facility]) 09/13/2018 Right invasi ve mucinous carcinoma Tachycardia Parafoveal telangiectasia, t ype I, bilateral 01/07/2019 Depression Covid-19 12/2019 SOPHY on CPAP Heart murmur Hypertension CHF (congestive heart failur e) ([facility]) Rbbb Severe episode of recurrent major depressive disorder, without psychotic features ([facility]) 12/30/2020 Recurrent major depression i n partial [...] on file Legal Sex Female 10:00 AM BIBLICAL STUDIES PROFESSOR Gender Identity Female 06/21/2021 11:15 AM BIBLICAL STUDIES PROFESSOR Sexual Orientation Straight 12/04/2018 12 :10 PM CDT Obstetrics History Last Filed Vital Signs Vital Sign Reading Time Taken Comments Blood Pressure 97/50 12/04/2024 12:31 PM CDT Pulse 62 12/04/2024 12:31 PM CDT Temperature 36.6 C (97.9 F) 11/10/2024 3:06 PM CDT Respiratory Rate 16 11/10/2024 3:06 PM CDT Oxygen Saturation 100% 12/04/2024 12: 31 PM CDT Inhaled Oxygen Concentration - - Weight 94.3 kg (207 lb 12.8 oz) 025 10:03 AM CDT Height 166.2 cm (5' 5.45) 03/25/2025 1 0:03 AM CDT Body Mass Index 34.1 03/25/2025 10:03 AM CDT Plan of Treatment Health Maintenance Due Date Last Done Comments Hepatitis C Screening 1960 Hepatitis B Screening 1980 Regular Well Visit/Exam 18-64 1980 Pneumococcal vaccine <65 (2 of 2 - PCV) 09/16/2021 09/16/2020, 07/02/2013 Depression Screening 07/28/2022 07/28/2021, 07/28/19 Covid-19 Vaccine (5 - 2024-2 6 season) 2025 04/13/2022, 04/28/2021, 08/03/2020, Additional history exists Influenza Vaccine (#1) 2025 , 07/05/2023, 07/05/2023, Additional history exists Breast Cancer Screening-Mammogram 07/22/2025 07/22/2024, 07/18/2023, 07/18/2023, Additional history exists Colon Cancer Screening-Colonoscopy 09/20/2030 09/20/2020 DTaP/Tdap/Td Vaccine (3 - Td or Tdap) 02/10/2031 02/10/2021, 11/09/2008 Colon Cancer Screening-CT Colonography Discontinued 09/20/2020 Colon [...] EPIC/EMR glitch) Problems with Health Conditions No Ciro, Anabelle Alcazar, RIVET MACHINE OPERATOR Note: New Extended Expected End Date [...] decline). Care Plan Problem 2. 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 This goal will support her to identify 3 ways in which she can improve the satisfaction level of her current living conditions (recall Pt lives alone in her own home, and Parents live relatively close in their own home). Medical Devices Implanted Type Area Plastic Top Assembler Device Identifier Shelf Expiration Date Model / Serial / Lot [employer] Angio-Seal Vip 6fr Closere Device [id number] - [id number] - [id number] Implanted:Qty: 1 on 08/13/2023 by Quincy Hoyos MD at [facility] Vascular Closure Device [employer] 05/01/2024 [id number] / [id number] / [id number] Rt Breast Biopsy Marker/Clip Implanted:08/30 (Quantity not on file) Right: Breast [employer] Mri Guided Rigid Deployment Device Cork Marker Breast Trimark Td 13-Mr - [id number] Implanted:Qty: 1 on 01/26/2023 at [facility] Right: Breast [employer] [id number] 02/28/2023 TRIMARK TD 13-MR / / [id number] Procedures Procedure Name Priority Date/Time Associated Diagnosis Comments DIAGNOSTIC MAMMOGRAM RIGHT W CHAITANYA Schedule Routine, Read Routine (OP Routine) 03/25/2025 1:48 PM CDT History of right breast cancer History of partial mastectomy of right breast DIAGNOSTIC MAMMOGRAM RIGHT W CHAITANYA Schedule Routine, Read Routine (OP Routine) 03/25/2025 12:44 PM CDT Abnormal mammogram of right breast Mass of right breast, unspecified quadrant MRI BREAST BILATERAL W WO CONTRAST Schedule Routine, Read Routine (OP Routine) 01/19/2025 12:05 PM CDT History of breast cancer SCREENING MAMMOGRAM BILATERAL W CHAITANYA Schedule Routine, Read Routine (OP Routine) 07/22/2024 12:26 PM BIBLICAL STUDIES PROFESSOR Encounter for follow-up examination after completed treatment for malignant neoplasm Encounter for screening mammogram for malignant neoplasm of breast COLONOSCOPY 09/20/2020 11:07 AM CDT from Last 3 Months or Most Recently Relevant to Health Maintenance Results * Diagnostic Mammogram Right W Chaitanya (03/25/2025 1:48 PM CDT) Anatomical Region Laterality Modality Breast Right Mammography 03/26/2025 10:1 3 AM CDT Impressions 03/26/2025 2:18 PM CDT Focal asymmetry in the upper outer RIGHT breast is less apparent on today's examination, favored to represent postsurgical changes of breast conservation therapy. Recommend return to annual screening mammogram due in July 2025 and supplemental breast MRI if clinically indicated. OVERALL FINAL ASSESSMENT: BI-RADS Category 2: Benign. RECOMMENDATION: 1. Annual screening mammography is recommended. 2. Breast MRI should also be considered for supplemental imaging surveillance given personal history of breast cancer. Dr. Leah Warner discussed the above findings and recommendations with the patient, who expressed her understanding of the management plan. Dictated by: Leah Warner MD This revised report is part of a correction generated to correct the encounter for the report. The report has not been altered from the previous version. Edited by: Kendal Manning/Conical Mixer Barbie Electronically signed by: Mayra Tejeda M.D. Narrative 03/26/2025 2:18 PM CDT EXAMINATION: RIGHT UNILATERAL DIGITAL DIAGNOSTIC MAMMOGRAM AND DIGITAL BREAST TOMOSYNTHESIS HISTORY: 64-year-old woman with history of RIGHT breast invasive mucinous carcinoma status post breast conservation therapy in 2019. Patient has had multiple RIGHT breast biopsies with benign results. She presented with new RIGHT breast lump and tenderness on 09/17/2024 was found to have a probably benign focal asymmetry in the upper outer RIGHT breast and presents for follow-up today. COMPARISON: Diagnostic mammogram and ultrasound 09/17/2024; breast MRI 01/19/2025; mammogram 07/22/2024, 07/18/2023, and 07/10/2022 TECHNIQUE: Full field digital mammographic views of the RIGHT breast were performed, including computer aided detection (CAD) and digital breast tomosynthesis (DBT). BREAST PARENCHYMAL COMPOSITION: There are scattered areas of fibroglandular density. MAMMOGRAM FINDINGS: Stable changes of breast conservation therapy in the RIGHT breast. The focal asymmetry in the upper outer RIGHT breast identified on 09/17/2024 is less apparent on today's examination. In retrospect this finding appears similar to multiple prior mammograms and likely represents posttreatment changes. There is no new suspicious abnormality in the RIGHT breast. Maxine Hernandez NP IMG MAMMO PROCEDURES Fi nal Result * Diagnostic Mammogram Right W Chaitanya (03/25/2025 12:44 PM CDT) Anatomical Region Laterality Modality Breast Right Mammography Impressions 03/25/2025 12:44 PM CDT Focal asymmetry in the upper outer RIGHT breast is less apparent on today's examination, favored to represent postsurgical changes of breast conservation therapy. Recommend return to annual screening mammogram due in July 2025 and supplemental breast MRI if clinically indicated. OVERALL FINAL ASSESSMENT: BI-RADS Category 2: Benign. RECOMMENDATION: 1. Annual screening mammography is recommended. 2. Breast MRI should also be considered for supplemental imaging surveillance given personal history of breast cancer. Dr. Leah Warner discussed the above findings and recommendations with the patient, who expressed her understanding of the management plan. Dictated by: Leah Warner MD The radiology attending physician has personally reviewed this study, and had reviewed and/or edited this written report and agrees with it. Electronically signed by: Mayra Tejeda M.D. Narrative 03/25/2025 12:44 PM CDT EXAMINATION: RIGHT UNILATERAL DIGITAL DIAGNOSTIC MAMMOGRAM AND DIGITAL BREAST TOMOSYNTHESIS HISTORY: 64-year-old woman with history of RIGHT breast invasive mucinous carcinoma status post breast conservation therapy in 2019. Patient has had multiple RIGHT breast biopsies with benign results. She presented with new RIGHT breast lump and tenderness on 09/17/2024 was found to have a probably benign focal asymmetry in the upper outer RIGHT breast and presents for follow-up today. COMPARISON: Diagnostic mammogram and ultrasound 09/17/2024; breast MRI 01/19/2025; mammogram 07/22/2024, 07/18/2023, and 07/10/2022 TECHNIQUE: Full field digital mammographic views of the RIGHT breast were performed, including computer aided detection (CAD) and digital breast tomosynthesis (DBT). BREAST PARENCHYMAL COMPOSITION: There are scattered areas of fibroglandular density. MAMMOGRAM FINDINGS: Stable changes of breast conservation therapy in the RIGHT breast. The focal asymmetry in the upper outer RIGHT breast identified on 09/17/2024 is less apparent on today's examination. In retrospect this finding appears similar to multiple prior mammograms and likely represents posttreatment changes. There is no new suspicious abnormality in the RIGHT breast. Maxine Hernandez MMA FIGHTER IMG MAMMO PROCEDURES Ed ited Result - Final * MRI Breast Bilateral W WO Contrast [...] with it. Electronically signed by: MD London CHAWLA 01/19/2025 3:00 PM CDT EXAMINATION: 1. MRI [...] IMG MRI PROCEDURES Final R esult * Screening Mammogram Bilateral W Chaitanya (07/22/2024 12:26 PM BIBLICAL STUDIES PROFESSOR) Anatomical Region Laterality Modality Breast Bilateral Mammography Narrative 07/23/2024 12:20 PM BIBLICAL STUDIES PROFESSOR Mammogram Technique: Bilateral Digital Breast Tomosynthesis, Bilateral C-view 2D Screening mammogram. Views obtained: bilateral craniocaudal and bilateral mediolateral oblique. Computer Aided Detection was performed. Mammogram Findings: The present examination has been compared to prior imaging studies performed at [facility] on 11/25/2019, 07/10/2022 and 07/18/2023. There [...] compared to prior imaging studies performed at [facility] on 11/25/2019, 07/10/2022 and 07/18/2023. There are scattered areas of fibroglandular density. There are post breast conservation therapy changes in the right breast. There is no suspicious abnormality in either breast. Impression: There is no mammographic evidence of malignancy. Annual screening mammography is recommended. OVERALL FINAL ASSESSMENT: BI-RADS CATEGORY 2: Benign. Elizabeth Kirby MMA FIGHTER IMG MAMMO PROCEDURES Fin al Result * COLONOSCOPY (09/20/2020 11:07 AM CDT) Anatomical Region Laterality Modality Other Narrative Procedure Note Ayden Andrade MD - 09/20/2020 11:07 AM CDT [facility] Patient Name: Jessica Zepeda Procedure Date: 09/20/2020 11:07 AM Date of : 1960 Admit Type: Outpatient Age: 60 Gender: Female Attending MD: Ayden Andrade M.D. Room: [facility] ENDOSCOPY ROOM 8 Note Status: Finalized Procedure: Colonoscopy Indications: Change in bowel habits, Weight loss Referring MD: KIARRA DowellPCNP Providers: Ayden Andrade M.D., Sammy Crane M.D. [...] The scope was passed under direct vision.The [id number] endoscope was introduced through the anus and advanced to the terminal ileum. The colonoscopy was performed without difficulty. The patient tolerated the procedure well. The qualityof the bowel preparation was evaluated using the BBPS ([place] Bowel Preparation Scale) with scores of:Right Colon [...] On: 09/20/2020 11:07 AM Recognized by the [place] [employer] for promoting quality [...] for listed symptoms of Depression, and Chronic Nqif-Nxwiwqewt-Qhsijt-Disorder, in order to report improved management of [...] for listed symptoms of Depression, and Chronic Hojq-Vxgdpyftr-Eklrup-Disorder, in order to report improved management of [...] individual only for 3x; Tx Order from Administrative Office Manager/Psychiatrist to 1D/Wk Group Psychotherapy & 1Ind/@ 2wks 10/07. Pts next session was week of 10/17 and week of 10/24. Pt psychiatric re-evaluation was 10/28 with ON HOLD order for 30 days while she went to [place] to return with both of her aging parents ([place], [place]); her next psychiatric re-evaluation is scheduled [...] Due Date: 10/19/2021 Responsible User: Anabelle Tanner, [facility] [employer]IC[employer] MEDIC[employer] [place] Member Subscriber Plan / Payer (Ef fective 2023-Present) Name:Jessica Zepeda Relation to Subscriber:Self Name:Jessica Zepeda Payer ID:[id number] Group ID:Not on file Type:COMMERCIAL Address: [address] [place] MEDICARE [place] CLAIMS OFFICE PHYSICIANS [facility] [place] Member Subscriber Plan / Payer (Ef fective 2023-Present) Name:Jessica Zepeda Relation to Subscriber:Self Name:Jessica Zepeda Payer ID:[id number] Group ID:Not on file Type:COMMERCIAL Address: [address] [place] Advance Directives For more information, please contact: [phone] Documents on File Type Date Recorded 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 Machine 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 Expl anation ADVANCE DIRECTIVE 10/23/2018 7:19 PM POWER OF ED PHYSICIANS-MEDICAL * Full Code (Latest Code Status on [...] 2:34 PM 10/22/2018 4:54 PM Care Teams Bus Assistant Relationship Specialty Start Date End Date Ciera Duncan MD [address] [facility] [address] [place] [address] PCP - General Family Medicine 07/16/20 Gisela Ribera MD PhD [address] [address] Radiation Oncologist Radiation Oncology 11/10/18 Rae Oviedo MD [address] [facility] [address] [place] [address] Surgeon Surgical Oncology 12/12/18 Yolanda Brannon, TARA [address] [facility] [address] [place] [address] Nurse Practitioner Nurse Practitioner 08/05/20 Aquilino Potts Jr., MD [address] [facility] [address] [place] [address] Consulting Physician Neurology 08/05/20 Linda Marcial, SANDRA Registered Nurse Pulmonary Disease 09/06/22 Mirian Stratton MD Consulting Physician Cardiology 02/06/23 Roxanne Spring MD [address] [facility] [address] [place] [address] Referring Physician Pulmonary Disease 02/06/23 Ligia Yarbrough Primary Lock Assembler 03/19/25
--- OUTSIDE RECORDS SUMMARY | 2025-03-31 09:44 | XMS_ITS | Encounter Summary ---
Author Organization [facility] Address [address] [place] [address] Phone Care Team Providers Care Senior Cobol Developer Name Role Phone Ciera Duncan MD Primary Care Provider + Gisela Ribera MD PhD Unavailable [phone] Rae Oviedo MD Unavailable [phone] Lenora Gallo MD Unavailable Jil Mazariegos DPT Unavailable Ciera Duncan MD Primary Care Provider + Anabelle Villegas OT Unavailable [phone] Patrizia Arriaga DPT Unavail able Yolanda Brannon WORKFORCE DEVELOPMENT SPECIALIST Unavailable [phone] Delroy Noel MD, Aquilino Nguyen Unavailable + Linda Marcial RN Unavailable Maame Mirian East MD Unavailable [phone] Roxanne Spring MD Unavailable [phone] Ligia Yarbrough Unavailable Unavailable Encounter Details Date [...] on file Legal Sex Female 10:00 AM ASIC DESIGN ENGINEER Gender Identity Female 06/21/2021 11:15 AM ASIC DESIGN ENGINEER Sexual Orientation Straight 12/04/2018 12 :10 [...] COVID: Suspected 09/07/2023 09/07/2023 09/07/2023 6:27 PM ASIC DESIGN ENGINEER documented as of this encounter Care Teams Senior Cobol Developer Relationship Specialty Start Date End Date Ciera Duncan MD PCP - General 08/16/17 07/13/20 Ciera Duncan MD PCP - General Family Medicine 07/16/20 Gisela Ribera MD PhD [address] [facility] [address] [place] [address] Radiation Oncologist Radiation Oncology 11/10/18 Rae Oviedo MD [address] [facility] [address] [place] [address] Surgeon Surgical Oncology 12/12/18 Lenora Gallo MD [address] [place] [address] Medical Oncologist/Solar Sales Medical Oncology 01/07/19 02/05/23 Jil Mazariegos, DPT [address] [place] [address] Physical Therapist Physical Therapy 05/21/20 02/05/23 Anabelle Villegas OT [address] [place] [place] [address] Occupational Therapist Occupational Therapy 07/26/20 1 08/16/20 Patrizia Arriaga, DPT [address] [place] [place] [address] Physical Therapist Physical Therapy 07/26/20 02/05/23 Yolanda Brannon, TARA [address] [place] [place] [address] Nurse Practitioner Nurse Practitioner 2/4/21 Aquilino Potts Jr., MD [address] [facility] [address] [place] [address] Consulting Physician Neurology 08/05/20 Linda Marcial, RN Registered Nurse Pulmonary Disease 09/06/22 Mirian Stratton MD Consulting Physician Cardiology 02/06/23 Roxanne Spring MD [address] [facility] [address] [place] [address] Referring Physician Pulmonary Disease 02/06/23 Ligia Yarbrough Primary Training Executive 03/19/25 documented as of this encounter
--- OUTSIDE RECORDS SUMMARY | 2025-03-31 09:44 | XMS_ITS | Encounter Summary ---
Author Organization [facility] Address [address] [place] [address] Phone Care Team Providers Care Machinist Wood Name Role Phone Gisela Ribera MD PhD Unavailable [phone] Rae Oviedo MD Unavailable [phone] Ciera Duncan MD Primary Care Provider + Yolanda Brannon SELF CONTAINED BEHAVIOR UNIT TEACHER Unavailable [phone] Delroy Noel MD, Aquilino Nguyen Unavailable + Linda Marcial RN Unavailable Maame Mirian East MD Unavailable [phone] Roxanne Spring MD Unavailable [phone] Ligia Yarbrough Unavailable Unavailable Encounter Details Date [...] on file Legal Sex Female 10:00 AM COLD REDUCTION ROLLER Gender Identity Female 06/21/2021 11:15 AM COLD REDUCTION ROLLER Sexual Orientation Straight 12/04/2018 12 :10 PM [...] Satisfaction with Living Conditions No Anabelle Tanner, GLASS UNLOADING EQUIPMENT TENDER Note: New Extended Expected End Date 07/07/2022 [...] task. 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 Pts next session was week of 10/17 and week of 10/24. Pt psychiatric re-evaluation was 10/28 with ON HOLD order for 30 days while she went to [place] to return with both of her aging parents ([place], [place]); her next psychiatric re-evaluation is scheduled [...] documented as of this encounter Care Teams Machinist Wood Relationship Specialty Start Date End Date Ciera Duncan MD [address] [place] [address] PCP - General Family Medicine 07/16/20 Gisela Ribera MD PhD [address] [facility] [address] [place] [address] Radiation Oncologist Radiation Oncology 11/10/18 Rae Oviedo MD [address] [place] [address] Surgeon Surgical Oncology 12/12/18 Yolanda Brannon NP [address] [place] [address] Nurse Practitioner Nurse Practitioner 08/05/20 Aquilino Potts Jr., MD [address] [facility] [address] [facility] [address] [place] [address] Consulting Physician Neurology 08/05/20 Linda Marcial, RN Registered Nurse Pulmonary Disease 09/06/22 Mirian Stratton MD Consulting Physician Cardiology 02/06/23 Roxanne Spring MD [address] [place] [address] Referring Physician Pulmonary Disease 02/06/23 Ligia Yarbrough Primary Automotive Tire Testing Supervisor 03/19/25 documented as of this encounter
--- OUTSIDE RECORDS SUMMARY | 2025-03-31 09:44 | XMS_ITS | Encounter Summary ---
Author Organization [facility] Address [address] [place] [address] Care Team Providers Care Metal Mold Dresser Name Role Phone Gisela Ribera MD PhD Unavailable [phone] Rae Oviedo MD Unavailable [phone] Lenora Gallo MD Unavailable [phone] Jil Mazariegos DPT Unavailable Ciera Duncan MD Primary Care Provider + Patrizia Arriaga DPT Unavail able Yolanda Brannon DOLL EYE SETTER Unavailable Delroy Noel MD, Steven Richard Unavailable + Linda Marcial RN Unavailable Maame Mirian East MD Unavailable [phone] Roxanne Spring MD Unavailable Ligia Yarbrough Unavailable Unavailable Encounter Details Date Type Department Care Team (Late st Contact Info) Description 02/02/2023 Documentation [facility] [address] [place] [address] [place] [address] [address] [facility] [address] [place], [place] [id number] Social History Tobacco Use Types Packs/Day Years [...] on file Legal Sex Female 10:00 AM DOCTOR OSTEOPATHIC Gender Identity Female 06/21/2021 11:15 AM DOCTOR OSTEOPATHIC Sexual Orientation Straight 12/04/2018 12 :10 PM [...] Problems with Health Conditions No Anabelle Tanner, APPLICATION INTEGRATION SPECIALIST Note: New Extended Expected End Date 07/07/2022 [...] 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 Pts next session was week of 10/17 and week of 10/24. Pt psychiatric re-evaluation was 10/28 with ON HOLD order for 30 days while she went to [place] to return with both of her aging parents ([place], [place]); her next psychiatric re-evaluation is scheduled [...] Due Date: 10/19/2021 Responsible User: Anabelle Tanner [facility] Infection Onset Date Last Indicated Resolved Time COVID: Suspected 09/07/2023 09/07/2023 09/07/2023 6:27 PM DOCTOR OSTEOPATHIC documented as of this encounter Care Teams Metal Mold Dresser Relationship Specialty Start Date End Date Ciera Duncan MD [address] [facility] [address] [place] [address] PCP - General Family Medicine 07/16/20 Gisela Ribera MD PhD [address] [facility] [address] [place] [address] Radiation Oncologist Radiation Oncology 11/10/18 Rae Oviedo MD [address] [facility] [address] [place] [address] Surgeon Surgical Oncology 12/12/18 Lenora Gallo MD [address] [facility] [address] [place] [address] Medical Oncologist/Aeronautical Engineer Medical Oncology 01/07/19 02/05/23 Jil Mazariegos, DPT [address] [facility] [address] [address] Physical Therapist Physical Therapy 05/21/20 02/05/23 Patrizia Arriaga, DPT [address] [facility] [address] [address] Physical Therapist Physical Therapy 07/26/20 02/05/23 Yolanda Brannon, TARA [address] [facility] [address] [facility] [place] [address] Nurse Practitioner Nurse Practitioner 08/05/20 Aquilino Potts Jr., MD [address] [facility] [address] [address] Consulting Physician Neurology 08/05/20 Linda Marcial, SANDRA Registered Nurse Pulmonary Disease 09/06/22 Mirian Stratton MD Consulting Physician Cardiology 02/06/23 Roxanne Spring MD [address] [facility] [address] [place] [address] Referring Physician Pulmonary Disease 02/06/23 Ligia Yarbrough Primary Communications Director 03/19/25 documented as of this encounter
--- OUTSIDE RECORDS SUMMARY | 2025-03-31 09:44 | XMS_ITS | Encounter Summary ---
Author Organization [facility] Healthcare Address [address] [place] [address] Care Team Providers Care Tractor Mechanic Apprentice Name Role Phone Ciera Duncan MD Primary Care Provider + Gisela Ribera MD PhD Unavailable [phone] Rae Oviedo MD Unavailable [phone] Lenora Gallo MD Unavailable + [phone] Jil Mazariegos DPT Unavailable Ciera Duncan MD Primary Care Provider + Anabelle Villegas OT Unavailable [phone] Patrizia Arriaga DPT Unavail able Yolanda Brannon HOMICIDE SQUAD COMMANDING OFFICER Unavailable [phone] Delroy Noel MD, Steven Richard Unavailable + Linda Marcial RN Unavailable Maame Mirian East MD Unavailable [phone] Roxanne Spring MD Unavailable [phone] Ligia Yarbrough Unavailable Unavailable Reason for Visit * Reason Onset Date Comments Pre-Surgical Call 04/12/2020 Encounter Details Date Type Department Care Team (Late st Contact Info) Description 04/12/2020 Telephone [facility] [address] [facility] [address] [place] [address] Lety Worrell MD PhD [address] [place] [address] Pre-Surgical Call Social History Tobacco Use Types [...] on file Legal Sex Female 10:00 AM PULP COOKER Gender Identity Female 06/21/2021 11:15 AM PULP COOKER Sexual Orientation Straight 12/04/2018 12 :10 PM [...] COVID: Suspected 09/07/2023 09/07/2023 09/07/2023 6:27 PM PULP COOKER documented as of this encounter Care Teams Tractor Mechanic Apprentice Relationship Specialty Start Date End Date Ciera Duncan MD PCP - General 08/16/17 07/13/20 Ciera Duncan MD PCP - General Family Medicine 07/16/20 Gisela Ribera MD PhD [address] [place] [address] Radiation Oncologist Radiation Oncology 11/10/18 Rae Oviedo MD [address] [place] [address] Surgeon Surgical Oncology 12/12/18 Lenora Gallo MD [address] [place] [address] Medical Oncologist/Sr Account Executive Medical Oncology 01/07/19 02/05/23 Jil Mazariegos, DPT [address] [place] [place] [address] Physical Therapist Physical Therapy 05/21/20 02/05/23 Anabelle Villegas OT [address] [place] [address] [facility] [place] [address] Occupational Therapist Occupational Therapy 07/26/20 1 08/16/20 Patrizia Arriaga, DPT [address] [place] [place] [address] Physical Therapist Physical Therapy 07/26/20 02/05/23 Yolanda Brannon, HOMICIDE SQUAD COMMANDING OFFICER [address] [place] [address] [facility] [place] [address] Nurse Practitioner Nurse Practitioner 08/05/20 Aquilino Potts Jr., MD [address] [facility] [address] [place] [address] Consulting Physician Neurology 08/05/20 Linda Marcial, SANDRA Registered Nurse Pulmonary Disease 09/06/22 Mirian Stratton MD Consulting Physician Cardiology 02/06/23 Roxanne Spring MD [address] [facility] [address] [place] [address] Referring Physician Pulmonary Disease 02/06/23 Ligia Yarbrough Primary Paralegals 03/19/25 documented as of this encounter
--- OUTSIDE RECORDS SUMMARY | 2025-03-31 09:44 | XMS_ITS | Encounter Summary ---
Author Organization [facility] Address [address] [place] [address] Phone Care Team Providers Care Field Support Specialist Name Role Phone Ciera Duncan MD Primary Care Provider + Gisela Ribera MD PhD Unavailable [phone] Rae Oviedo MD Unavailable [phone] Lenora Gallo MD Unavailable Jil Mazariegos DPT Unavailable Ciera Duncan MD Primary Care Provider + Anabelle Villegas OT Unavailable [phone] Patrizia Arriaga DPT Unavail able Yolanda Brannon MAIL RIDER Unavailable [phone] Delroy Noel MD, Aquilino Nguyen Unavailable + Linda Marcial RN Unavailable Maame Mirian East MD Unavailable [phone] Roxanne Spring MD Unavailable [phone] Ligia Yarbrough Unavailable Unavailable Encounter Details Date [...] on file Legal Sex Female 10:00 AM CREATIVE PRODUCER Gender Identity Female 06/21/2021 11:15 AM CREATIVE PRODUCER Sexual Orientation Straight 12/04/2018 12 :10 PM [...] COVID: Suspected 09/07/2023 09/07/2023 09/07/2023 6:27 PM CREATIVE PRODUCER documented as of this encounter Care Teams Field Support Specialist Relationship Specialty Start Date End Date Ciera Duncan MD PCP - General 08/16/17 07/13/20 Ciera Duncan MD PCP - General Family Medicine 07/16/20 Gisela Ribera MD PhD [address] [place] [address] Radiation Oncologist Radiation Oncology 11/10/18 Rae Oviedo MD [address] [place] [address] Surgeon Surgical Oncology 12/12/18 Lenora Gallo MD [address] [place] [address] Medical Oncologist/Hog Tender Medical Oncology 01/07/19 02/05/23 Jil Mazariegos, DPT [address] [place] [address] Physical Therapist Physical Therapy 05/21/20 02/05/23 Anabelle Villegas OT [address] [place] [address] Occupational Therapist Occupational Therapy 07/26/20 1 08/16/20 Patrizia Arriaga, DPT [address] [place] [address] Physical Therapist Physical Therapy 07/26/20 02/05/23 Yolanda Brannon, MAIL RIDER [address] [place] [address] [facility] [place] [address] Nurse Practitioner Nurse Practitioner 08/05/20 Aquilino Potts Jr., MD [address] [facility] [address] [place] [address] Consulting Physician Neurology 08/05/20 Linda Marcial, SANDRA Registered Nurse Pulmonary Disease 09/06/22 Mirian Stratton MD Consulting Physician Cardiology 02/06/23 Roxanne Spring MD [address] [facility] [address] [place] [address] Referring Physician Pulmonary Disease 02/06/[address] Messenger 03/19/25 documented as of this encounter
--- OUTSIDE RECORDS SUMMARY | 2025-03-31 09:44 | XMS_ITS | Encounter Summary ---
Author Organization [facility] Address [address] [place] [address] Phone Care Team Providers Care Electric Distribution Checker Name Role Phone Gisela Ribera MD PhD Unavailable [phone] Rae Oviedo MD Unavailable [phone] Ciera Duncan MD Primary Care Provider + Yolanda Brannon PHYSICIAN PRESIDENT Unavailable [phone] Delroy Noel MD, Aquilino Nguyen Unavailable + Linda Marcial RN Unavailable Maame Mirian East MD Unavailable [phone] Roxanne Spring MD Unavailable [phone] Ligia Yarbrough Unavailable Unavailable Encounter Details Date [...] on file Legal Sex Female 10:00 AM AIR CARRIER INSPECTOR Gender Identity Female 06/21/2021 11:15 AM AIR CARRIER INSPECTOR Sexual Orientation Straight 12/04/2018 12 :10 PM [...] Satisfaction with Living Conditions No Anabelle Tanner, CLERICAL ASSIGNER Note: New Extended Expected End Date 07/07/2022 [...] task. 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 Pts next session was week of 10/17 and week of 10/24. Pt psychiatric re-evaluation was 10/28 with ON HOLD order for 30 days while she went to [place] to return with both of her aging parents ([place], [place]); her next psychiatric re-evaluation is scheduled [...] documented as of this encounter Care Teams Electric Distribution Checker Relationship Specialty Start Date End Date Ciera Duncan MD [address] LL [address] [place] [address] PCP - General Family Medicine 07/16/20 Gisela Ribera MD PhD [address] [facility] [address] [place] [address] Radiation Oncologist Radiation Oncology 11/10/18 Rae Oviedo MD [address] [place] [address] Surgeon Surgical Oncology 12/12/18 Yoladna Brannon NP [address] [place] [address] Nurse Practitioner Nurse Practitioner 08/05/20 Aquilino Potts Jr., MD [address] [facility] # LL [address] [place] [address] Consulting Physician Neurology 08/05/20 Linda Marcial, RN Registered Nurse Pulmonary Disease 09/06/22 Mirian Stratton MD Consulting Physician Cardiology 02/06/23 Roxanne Spring MD [address] [place] [address] Referring Physician Pulmonary Disease 02/06/23 Ligia Yarbrough Primary Avionics Mechanic 03/19/25 documented as of this encounter
--- OUTSIDE RECORDS SUMMARY | 2025-03-31 09:44 | XMS_ITS | Clinical Summary ---
Author Organization [facility] Address [address] [facility] Attn: Epic Prelude ADT [place] [address] Care Team Providers Care Senior Mechanical Project Manager Name Role Phone Unavailable Primary Care Provider Unavailabl e Social History Tobacco Use Types Packs/Day Years Used Date Smoking Tobacco: Never Assessed Comments Unknown Sex and Gender Information Value Date Recorded Sex Assigned at Not on file Legal Sex Female 3:37 AM CLEARANCE DIVER Gender Identity Not on file Sexual Orientation [...]
--- OUTSIDE RECORDS SUMMARY | 2025-03-31 09:44 | XMS_ITS | Encounter Summary ---
Author Organization [facility] Healthcare Address [address] [place] [address] Care Team Providers Care Blanket Washer Name Role Phone Gisela Ribera MD PhD Unavailable Rae Oviedo MD Unavailable Lenora Gallo MD Unavailable [phone] Jil Mazariegos DPT Unavailable Ciera Duncan MD Primary Care Provider + Patrizia Arriaga DPT Unavail able Yolanda Brannon ADVERTISING DISPLAY ROTATOR Unavailable Delroy Noel MD, Steven Richard Unavailable + Linda Marcial RN Unavailable Maame Mirian East MD Unavailable [phone] Roxanne Spring MD Unavailable [phone] Ligia Yarbrough Unavailable Unavailable Encounter Details Date Type Department Care Team (Late st Contact Info) Description 11/03/2022 Documentation [facility] Senior Counseling [address] [place] [address] [place] [address] [facility] [address] [place], [place] [id number] Social History Tobacco Use Types Packs/Day Years [...] on file Legal Sex Female 10:00 AM LEAD SUSTAINABILITY SPECIALIST Gender Identity Female 06/21/2021 11:15 AM LEAD SUSTAINABILITY SPECIALIST Sexual Orientation Straight 12/04/2018 12 :10 [...] Satisfaction with Living Conditions No Anabelle Tanner, JOB PRINTER Note: New Extended Expected End Date 07/07/2022 [...] 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 (Reinstated 11/25) Turbine Truck Engines/Atlas Spine glitch) Poor Satisfaction with Living Conditions 12/13/2021 Note: Problem 2: Problem Statement. Pt struggles with day-to-day living from significant life event and health condition changes which resulted in early longterm from career work, placement in [facility] & loss of work family support, [...] for listed symptoms of Depression, and Chronic Wvtr-Daodeyqxc-Qqtcmi-Disorder, in order to report improved management of [...] individual only for 3x; Tx Order from Rn Clinical Resource/Psychiatrist to 1D/Wk Group Psychotherapy & 1Ind/@ 2wks 10/07. Pts next session was week of 10/17 and week of 10/24. Pt psychiatric re-evaluation was 10/28 with ON HOLD order for 30 days while she went to [place] to return with both of her aging parents ([place], [place]); her next psychiatric re-evaluation is scheduled [...] COVID: Suspected 09/07/2023 09/07/2023 09/07/2023 6:27 PM LEAD SUSTAINABILITY SPECIALIST documented as of this encounter Care Teams Blanket Washer Relationship Specialty Start Date End Date Ciera Duncan MD [address] [facility] [address] [facility] [place] [address] PCP - General Family Medicine 07/16/20 Gisela Ribera MD PhD [address] [place] [address] Radiation Oncologist Radiation Oncology 11/10/18 Rae Oviedo MD [address] [place] [address] Surgeon Surgical Oncology 12/12/18 Lenora Gallo MD [address] [place] [address] Medical Oncologist/Petroleum Refinery Worker Medical Oncology 01/07/19 02/05/23 Jil Mazariegos DPT [address] [facility] [address] [facility] [place] [address] Physical Therapist Physical Therapy 05/21/20 02/05/23 Patrizia Arriaga DPT [address] [facility] [address] [address] Physical Therapist Physical Therapy 07/26/20 02/05/23 Yolanda Brannon, TARA [address] [facility] [address] [facility] [place] [address] Nurse Practitioner Nurse Practitioner 08/05/20 Aquilino Potts Jr., MD [address] [facility] [address] [address] Consulting Physician Neurology 08/05/20 Linda Marcial, RN Registered Nurse Pulmonary Disease 09/06/22 Mirian Stratton MD Consulting Physician Cardiology 02/06/23 Roxanne Spring MD [address] [facility] [address] [place] [address] Referring Physician Pulmonary Disease 02/06/23 Ligia Yarbrough Primary Record Changer Tester 03/19/25 documented as of this encounter
--- OUTSIDE RECORDS SUMMARY | 2025-03-31 09:44 | XMS_ITS | Encounter Summary ---
Author Organization [facility] Address [address] [place] [address] Phone Care Team Providers Care Medical Technologist Prn Name Role Phone Ciera Duncan MD Primary Care Provider + Gisela Ribera MD PhD Unavailable [phone] Rae Oviedo MD Unavailable [phone] Lenora Gallo MD Unavailable Jil Mazariegos DPT Unavailable Ciera Duncan MD Primary Care Provider + Anabelle Villegas OT Unavailable [phone] Patrizia Arriaga DPT Unavail able Yolanda Brannon ASSOCIATE PROFESSOR OF LIBRARY MEDIA Unavailable [phone] Delroy Noel MD, Aquilino Nguyen Unavailable + Linda Marcial RN Unavailable Maame Mirian East MD Unavailable [phone] Roxanne Spring MD Unavailable [phone] Ligia Yarbrough Unavailable Unavailable Encounter Details Date [...] on file Legal Sex Female 10:00 AM 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 Author CCM Chronic Pain Care Plan Chronic Care Management No change(03/07 11:13 AM CDT) No Suzan Iasbel, RN Note: Problem: Chronic Pain Goals: 1. [...] COVID: Suspected 09/07/2023 09/07/2023 09/07/2023 6:27 PM COMMERCIAL MANAGEMENT ACCOUNTANT documented as of this encounter Care Teams Medical Technologist Prn Relationship Specialty Start Date End Date Ciera Duncan MD PCP - General 08/16/17 07/13/20 Ciera Duncan MD PCP - General Family Medicine 07/16/20 Gisela Ribera MD PhD [address] [place] [address] Radiation Oncologist Radiation Oncology 11/10/18 Rae Oviedo MD [address] [place] [address] Surgeon Surgical Oncology 12/12/18 Lenora Gallo MD [address] [place] [address] Medical Oncologist/Apn Medical Oncology 01/07/19 02/05/23 Jil Mazariegos, DPT [address] [place] [address] Physical Therapist Physical Therapy 05/21/20 02/05/23 Anabelle Villegas OT [address] [facility] [place] [address] Occupational Therapist Occupational Therapy 07/26/20 1 08/16/20 Patrizia Arriaga, DPT [address] [place] [address] Physical Therapist Physical Therapy 07/26/20 02/05/23 Yolanda Brannon, ASSOCIATE PROFESSOR OF LIBRARY MEDIA [address] [facility] [place] [address] Nurse Practitioner Nurse Practitioner 08/05/20 Aquilino Potts Jr., MD [address] [facility] [address] [place] [address] Consulting Physician Neurology 08/05/20 Linda Marcial, SANDRA Registered Nurse Pulmonary Disease 09/06/22 Mirian Stratton MD Consulting Physician Cardiology 02/06/23 Roxanne Spring MD [address] [facility] [address] [place] [address] Referring Physician Pulmonary Disease 02/06/23 Ligia Yarbrough Primary Group Home Supervisor 03/19/25 documented as of this encounter
--- OUTSIDE RECORDS SUMMARY | 2025-03-31 09:44 | XMS_ITS | Encounter Summary ---
Author Organization [facility] of [facility] Address [address] [place] [address] Phone Care Team Providers Care Event Producer Name Role Phone Ciera Duncan MD Primary Care Provider + Gisela Ribera MD PhD Unavailable [phone] Rae Oviedo MD Unavailable [phone] Lenora Gallo MD Unavailable Jil Mazariegos DPT Unavailable Ciera Duncan MD Primary Care Provider + Anabelle Villegas OT Unavailable [phone] Patrizia Arriaga DPT Unavail able Yolanda Brannon WINDOW TRIMMER Unavailable [phone] Delroy Noel MD, Aquilino Nguyen Unavailable + Linda Marcial RN Unavailable Maame Mirian East MD Unavailable [phone] Roxanne Spring MD Unavailable [phone] Ligia Yarbrough Unavailable Unavailable Encounter Details Date [...] on file Legal Sex Female 10:[address] Gender Identity Female 06/21/2021 11:[address] MENDER Sexual Orientation Straight 12/04/2018 12 :10 PM [...] COVID: Suspected 09/07/2023 09/07/2023 09/07/2023 6:[address]ER documented as of this encounter Care Teams Event Producer Relationship Specialty Start Date End Date Ciera Duncan MD PCP - General 08/16/17 07/13/20 Ciera Duncan MD PCP - General Family Medicine 07/16/20 Gisela Ribera MD PhD [address] [place] [address] Radiation Oncologist Radiation Oncology 11/10/18 Rae Oviedo MD [address] [place] [address] Surgeon Surgical Oncology 12/12/18 Lenora Gallo MD [address] [place] [address] Medical Oncologist/Economist Research Assistant Medical Oncology 01/07/19 02/05/23 Jil Mazariegos, DPT [address] [place] [address] Physical Therapist Physical Therapy 05/21/20 02/05/23 Anabelle Villegas OT [address] [place] [address] Occupational Therapist Occupational Therapy 07/26/20 1 08/16/20 Patrizia Arriaga, DPT [address] [place] [address] Physical Therapist Physical Therapy 07/26/20 02/05/23 Yolanda Brannon, WINDOW TRIMMER [address] [facility] [place] [address] Nurse Practitioner Nurse Practitioner 08/05/20 Aquilino Potts Jr., MD [address] [facility] [address] [place] [address] Consulting Physician Neurology 08/05/20 Linda Marcial, SANDRA Registered Nurse Pulmonary Disease 09/06/22 Mirian Stratton MD Consulting Physician Cardiology 02/06/23 Roxanne Spring MD [address] [facility] [address] [place] [address] Referring Physician Pulmonary Disease 02/06/23 Ligia Yarbrough Primary Organizational Development Manager 03/19/25 documented as of this encounter
--- OUTSIDE RECORDS SUMMARY | 2025-03-31 09:44 | XMS_ITS | Encounter Summary ---
Author Organization [facility] Address [address] [place] [address] Phone Care Team Providers Care Vamp Seamer Name Role Phone Ciera Duncan MD Primary Care Provider + Mikel Noel MD, Rebel Unavailable + [phone] Gisela Ribera MD PhD Unavailable [phone] Rae Oviedo MD Unavailable [phone] Lenora Gallo MD Unavailable + [phone] Jil Mazariegos DPT Unavailable Ciera Duncan MD Primary Care Provider + Anabelle Villegas OT Unavailable [phone] Patrizia Arriaga DPT Unavail able Yolanda Brannon WEB PRODUCTION MANAGER Unavailable [phone] Delroy Noel MD, Aquilino Nguyen Unavailable + Linda Marcial RN Unavailable Maame Mirian East MD Unavailable [phone] Roxanne Spring MD Unavailable [phone] Ligia Yarbrough Unavailable Unavailable Encounter Details Date [...] on file Legal Sex Female 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 Gender Identity Female 06/21/2021 11:15 AM DELIVERY DRIVER ASSISTANT Sexual Orientation Straight 12/04/2018 12 :10 [...] COVID: Suspected 09/07/2023 09/07/2023 09/07/2023 6:27 PM DELIVERY DRIVER ASSISTANT documented as of this encounter Care Teams Vamp Seamer Relationship Specialty Start Date End Date Ciera Duncan MD PCP - General 08/16/17 07/13/20 Ciera Duncan MD PCP - General Family Medicine 07/16/20 Rebel Morin Jr., MD Medical Oncologist/Hothouse Worker Medical Oncology 10/31/18 01/06/19 Gisela Ribera MD PhD [address] [place] [address] Radiation Oncologist Radiation Oncology 11/10/18 Rae Oviedo MD [address] [place] [address] Surgeon Surgical Oncology 12/12/18 Lenora Gallo MD [address] [place] [address] Medical Oncologist/Hothouse Worker Medical Oncology 01/07/19 02/05/23 Jil Mazariegos, DPT [address] [facility] [place] [address] Physical Therapist Physical Therapy 05/21/20 02/05/23 Anabelle Villegas OT [address] [facility] [place] [address] Occupational Therapist Occupational Therapy 07/26/20 1 08/16/20 Patrizia Arriaga, DPT [address] [facility] [place] [address] Physical Therapist Physical Therapy 07/26/20 02/05/23 Yolanda Brannon, WEB PRODUCTION MANAGER [address] [place] [address] Nurse Practitioner Nurse Practitioner 08/05/20 Aquilino Potts Jr., MD [address] [facility] [address] [place] [address] Consulting Physician Neurology 08/05/20 Linda Marcial, SANDRA Registered Nurse Pulmonary Disease 09/06/22 Mirian Stratton MD Consulting Physician Cardiology 02/06/23 Roxanne Spring MD [address] [facility] [address] [place] [address] Referring Physician Pulmonary Disease 02/06/23 Ligia Yarbrough Primary Lap Layer 03/19/25 documented as of this encounter
[2025-03-31 13:05] LABS: Hematocrit 41.0 % (37.0-47.0); Hemoglobin 12.5 g/dL (12.0-15.0); Immature Granulocyte Percent A 0.3 % (0-0.5); Lymphocytes Absolute Auto 1.97 K/mm3 (0.9-3.2); Mean Corpuscular HGB Conc 30.5 g/dl (32-36); Mean Corpuscular Hemoglobin 28.6 pg (26-34); Mean Corpuscular Volume 93.8 fl (80-100); Nucleated Red Blood Cells Absolute Auto 0.000 K/mm3 (0.0-0.012); Nucleated Red Blood Cells Perc 0.0 % (0.0-0.2); Platelet Count Result 261 k/mm3 (150-375); Red Blood Count 4.37 M/mm3 (4.2-5.4); White Blood Count 6.8 K/mm3 (4.5-10.0)
[2025-03-31 13:09] LABS: Iron 86 ug/dL (37-170)
[2025-03-31 13:51] LABS: Ferritin 114.00 ng/mL (11.1-264)
[2025-03-31 13:52] LABS: Percent Iron Saturation 37 % (20-50)
[2025-03-31 14:22] LABS: Vitamin B12 605.0 pg/mL (239-931)
== END 2025-03-31 09:14 | disposition home or self-care (01) ==
LOC: ANHGOSHLAB 09:14
PROVIDERS: PCP Family Medicine; Visit Provider Nurse Practitioner Family
DX: E61.1 Iron deficiency (principal); R53.83 Other fatigue; B94.8 Sequelae of other specified infectious and parasitic diseases
CPT/HCPCS: 36415; 82607; 82728; 82746; 83540; 83550; 85025